=== PATIENT | female | born 1950 | race American Indian/Alaskan Native ===

== ENCOUNTER 2019-11-20 17:21 | Observation (INO) | payer OTHER ==
[~2019-11-20] VITALS: Ht 162.6 cm; Wt 113.0 kg
--- NOTE | 2019-11-20 22:45 | NUR ---
PATIENT ARRIVED VIA STRETCHER. PATIENT WAS ABLE TO PIVOT TRANSFER WITH CANE A SBA. PATIENT DID FEEL LIGHT HEADED WITH MOVEMENT. PATIENTS VITALS TAKEN AND RECORDED. PATIENTS ADMISSION COMPLETED. PATIENT DENIES ANY PAIN OR NAUSEA. PATIENT ORIENTED TO FLOOR, ROOM, AND CALL LIGHT. ANGELI RN IN ROOM TO ASSES PATIENT.
--- NOTE | 2019-11-20 23:00 | NUR ---
ASSESSMENT COMPLETE. PT ALERT AND ORIENTED. DENIES PAIN OR NAUSEA AT THIS TIME. IVF INFUSING. PT ORIENTED TO ROOM AND NURSE CALL LIGHT. ICE WATER GIVEN. NO QUESTIONS OR CONCERNS AT THIS TIME. CALL LIGHT IN REACH.
--- NOTE | 2019-11-21 01:50 | NUR ---
PT REQUESTING PRN FOR ABD PAIN. DR. MAGANA CALLED, NEW ORDERS RECEIVED. MEDICATED WITH PRN PER ORDER. SPO2 88-93% ON RA. PLACED 1L/NC, SPO2 95%. RR SHALLOW, PT STATES "IT HURTS TO TAKE DEEP BREATHS". ENCOURAGED PT TO COUGH DEEP BREATH TOLERATED. NO FURTHER NEEDS AT THIS TIME. CALL LIGHT IN REACH.
--- NOTE | 2019-11-21 06:16 | NUR ---
VS COMPLETE. SPO2 93% ON RA. UP TO BR WITH SBA TO VOID 400 ML CONCENTRATED URINE. GAIT STEADY. BACK TO BED, MARIA INES WELL. CLEAN GAUZE PLACED TO LEFT FLANK WOUND. PURULENT DRAINAGE NOTED. DENIES ABD AT THIS TIME. C/O HEADACHE BUT REFUSED PRN. WARM BLANKET GIVEN. LAB IN ROOM. NO FURTHER NEEDS, CALL LIGHT IN REACH.
--- NOTE | 2019-11-21 08:55 | NUR ---
MED REC COMPLETE
--- NOTE | 2019-11-21 09:13 | NUR ---
PATIENT IN BED WATCHING TV. FRESH WATER GIVEN. CALL LIGHT IN REACH. NO FURTHER NEEDS AT THIS TIME. PATIENT WANTS TO SHOWER LATER TODAY.
--- NOTE | 2019-11-21 09:39 | NUR ---
Ibuprofen 800mg po admin with jello for reports of 4/10 abdominal pain.
--- NOTE | 2019-11-21 12:24 | NUR ---
PT BACK FROM DI. IV FLUIDS INFUSING. PT REPORTS ABD PAIN IS IMPROVED. NO NEEDS AT THIS TIME.
--- NOTE | 2019-11-21 13:25 | NUR ---
PT SITTIN IN BED, A&OX4. PT REPORTS ABD PAIN IS UNDER BETTER CONTROL SINCE LAST DOSE OF IBUPROFEN. PT TOLERATING CLEAR LIQUID DIET. NO NEEDS AT THIS TIME. PERSONAL SUPPLIES AND CALL LIGHT WITHIN REACH.
--- NOTE | 2019-11-21 14:00 | NUR ---
PT ALERT, ORIENTED AND RESTINGIN BED WITH TV ON. PT SPEAKS SOFTLY BUT CLEARLY. PT MENTIONED SHE HAD JUST SPOKEN WITH HER DAUGHTER. STRUGGLING NOT BEING ABLE TO VISIT. PT SAID SHE ENCOURAGED HER TO CALL WHEN EVER SHE FELT A NEED. THESE ARE INDEED STRESSFUL TIMES. PT SEEMS TO BE MANAGING. PAIN BETTER UNDER CONTROL FEELS THAT SCAR TISSUE MAY BE THE PROBLEM. PT DID SAY SHE WISHED THAT A CAUSE COULD BE FOUND. SHE REQUESTED PRAYER AND ENCLUDED WISDOM FOR THE
--- NOTE | 2019-11-21 14:27 | NUR ---
PATIENT IN BED RESTING. CALL LIGHT IN REACH. NO FURTHER NEEDS AT THIS TIME.
--- NOTE | 2019-11-21 16:17 | NUR ---
In and spoke with Asiya. States she lives on [address] in a 1 story house with her husban. She has not been feeling well for 3 weeks and has not eaten much for 2 weeks due to abd. pain. He spouse is supportive and helps her with house hold chores. 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 She does not have children, uses a cane, denies use of any other DME. Plans on dc to home when she is cleared by the Dr. to go go home. She complains on cont. abd pain during our visit, denies need for RN to get pain meds as she was just medicated.
--- NOTE | 2019-11-21 17:54 | NUR ---
Pt in bed at this time, resp even and non labored. Pt denies needs at this time. Personal supplies and call light within reach.
--- NOTE | 2019-11-21 18:07 | NUR ---
Tylenol 650mg po admin for reports of 4/10 abd pain.
--- NOTE | 2019-11-21 19:30 | NUR ---
REPORT RECEIVED FROM DAY SHIFT RN. PT SITTING IN RECLINER, ALERT AND ORIENTED. O2 2L/NC IN PLACE. DENIES SOB. WHITE BOARD UPDATED. NO QUESTIONS OR CONCERNS AT THIS TIME. CALL LIGHT IN REACH.
--- NOTE | 2019-11-21 19:36 | NUR ---
REPORT RECEIVED FROM DAY SHIFT RN. PT LYING IN BED RESTING WITH EYES CLOSED, NAD. PT NOT DISTURBED AT THIS TIME. WHITE BOARD UPDATED. CALL LIGHT IN REACH.
--- NOTE | 2019-11-21 21:03 | NUR ---
ASSESSMENT COMPLETE. PRN GIVEN FOR 7/10 LEFT QUADRANT PAIN. PT REPORTS ABOUT TWO HOURS AFTER EATING ANYTHING SOLID SHE EXPERIENCES INCREASED PAIN ON THE LEFT SIDE. SPONGES REMOVED FROM LEFT SIDE WOUND, CLEAN SPONGES PLACED. PT STATES SHE HAS HAD SEVERAL LOOSE BOWEL MOVEMENTS FOLLOWING GI STUDY. NO C/O NAUSEA. IVF INFUSING. NO FURTHER NEEDS AT THIS TIME. CALL LIGHT IN REACH.
--- NOTE | 2019-11-21 23:50 | NUR ---
PT RESTING IN BED WITH EYES CLOSED, NAD.
--- NOTE | 2019-11-22 03:00 | NUR ---
PT RESTING IN BED WITH EYES CLOSED, RESPIRATIONS EVEN AND UNLABORED.
--- NOTE | 2019-11-22 05:03 | NUR ---
CALL LIGHT ANSWERED. PT UP TO BR WITH SBA TO VOID 3OO ML CONCENTRATED URINE. BACK TO BED, MARIA INES WELL. PRN GIVEN FOR ABD PAIN. NO C/O NAUSEA. IVF INFUSING. CLEAN GAUZE PLACED TO LEFT SIDE WOUND. VS AND I&O COMPLETE. NO FURTHER NEEDS. CALL LIGHT IN REACH.
--- NOTE | 2019-11-22 05:52 | NUR ---
PT SLEPT WELL. ALERT AND ORIENTED, USES CALL LIGHT APPROPRIATELY. SBA WITH CANE. IVF. PRN TYLENOL AND DILAUDID FOR PAIN. WOUND TO LEFT SIDE WITH PURULENT DRAINAGE COVERED WITH GAUZE. SEVERAL LOOSE BOWEL MOVEMENTS THIS SHIFT.
--- NOTE | 2019-11-22 05:58 | CONS ---
[facility] [address], [place] [address] Signed DATE OF CONSULTATION: 11/21/2019 CHIEF COMPLAINT: Left side abdominal pain. HISTORY OF PRESENT ILLNESS: Sven is now a 69-year-old obese female, who back in 2006 underwent an open left nephrectomy at [facility] in [place], [place]. She cannot tell me why she had a nephrectomy performed. She does not recall any cancer being there. Apparently, a hole was noted in the bowel and she ended up with a loop ileostomy while in [place]. Eventually, she made her way back to [place], [place]. 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 Costa was able to reverse her right lower quadrant loop ileostomy and repair the left flank hernia with Prolene mesh. Apparently that was done I think in October 2008. By April 2009, apparently she had an abdominal abscess requiring incision and drainage. At that point, the entire piece of Prolene mesh was not incorporated, so it was completely removed. There was some concern and at one point she had a left colectomy apparently for diverticular disease. It may have contributed to the colocutaneous fistula. She had a primary anastomosis, I think at the time of the implantation of the Prolene mesh. Later around 2007 or 2008, she had a colonoscopy and it sounds like everything was fine. This was also done by Dr. Costa. She has gone along this way for quite some time, it seems to be doing pretty well. She has a chronic wound in her left flank, probably a cm or so in diameter with some granulation tissue. She tells me there is never any stool or pus coming out of that area. However, the last couple of weeks she ate and within a couple of hours, she was having left-sided abdominal pain. She noticed it was coming every night after dinner and she ended up cutting back her p.o. intake to just some water and cranberry juice. However, it does not seem to be improving, so she finally decided to come to the emergency room for evaluation. In the emergency room, her vital signs were fine and her abdominal exam was not particularly concerning other than a chronic wound on her left back. However, the white count was up at 17,000 and her bilirubin was up at 4.2, although the liver function tests were fine. Alkaline phosphatase also of 417. Lactic acid was normal at 1.1. Lipase was normal. She gave a urine sample, but it had +4 squamous cells and was not particularly helpful. She has had blood cultures drawn as well. Renal function is normal. The CT scan showed of course some dilation of common bile duct, of course the gallbladder has gone from her previous open cholecystectomy. 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 There are surgical anastomotic mercy somewhere high in the left pelvis. There is some debris in her bladder and her left ovary is complex and septated at 53 x 38 mm. There seems to be some surgical clips in that area as well. She then had a chest x-ray done and it was unremarkable. She also had a pelvic ultrasound performed. Although, she did not tolerate that particular well. She does have a very small uterus. The right ovary is fairly small, she does have a complex left over at 54 x 35 x 49 mm. Obviously, there is some concern in that regard. It will certainly need to be addressed in the near future. Because of the left-sided abdominal pain, I have been asked to admit her as a Electronically Signed By: RICHY MAGANA MD 11/22/19 0558 PATIENT NAME: SVEN STAPLES CONSULTATION DATE OF : 48 REPORT #: [id number] PHYSICIAN: RICHY MAGANA MD PCP: YOVANA COSTA MD REPORT IS CONFIDENTIAL AND NOT TO BE RELEASED WITHOUT AUTHORIZATION [facility] [address], [place] [address] Signed general surgeon on-call. She has been hydrated overnight and kept n.p.o. Generally, she is doing fine. In the meantime, we have had time to talk to her and review quite a bit of her records. We are still trying to get her records from [place] for the left nephrectomy in 2006. PAST MEDICAL HISTORY: Diverticulosis and obesity. 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 That ultimately healed and was taken down here in [place] by Dr. Costa and at that time it sounds like she had a left colectomy with a primary anastomosis. At some point, she had I think during that same surgery she had Prolene mesh placed for her left flank hernia. It became affected within a few months, the Prolene mesh had to be removed and the wound evacuated. It was allowed to heal in secondarily with the help of the wound VAC. It is somewhere in 2007 or 2008, she actually had a colonoscopy with Dr. Costa and apparently that was fine as well. SOCIAL HISTORY: She has quit smoking. She does not drink. She is to her , Malachi, at [phone]. She attends [employer]. 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 FAMILY HISTORY: Not reviewed. REVIEW OF SYSTEMS: She had 10 systems reviewed and the above findings were uncovered along with extensive medical review of the chart. ALLERGIES: Aspirin causes hives. MEDICATIONS: None. PHYSICAL EXAMINATION: VITAL SIGNS: Blood pressure 122/55, heart rate is 94, respiratory rate 16, temperature is 98.3. She is 93% on room air. She is 5 feet 4 inches, 112 kg (240 pounds). GENERAL: Sven is a 69-year-old female, lying supine in her hospital bed. She is alert, awake, and interactive. She does not appear systemically ill or toxic. I think she is more frustrated than anything else. She has a pretty good mind for detail actually considered how sick she was in [place]. Electronically Signed By: RICHY MAGANA MD 11/22/19 0558 PATIENT NAME: SVEN STAPLES CONSULTATION DATE OF : 48 REPORT #: [id number] PHYSICIAN: RICHY MAGANA MD PCP: YOVANA COSTA MD REPORT IS CONFIDENTIAL AND NOT TO BE RELEASED WITHOUT AUTHORIZATION [facility] [address], [place] [address] Signed LUNGS: Clear to auscultation bilaterally. HEART: Regular rate and rhythm. ABDOMEN: Obese, but soft and nontender. She points to the left side is area of pain. On her left flank she has a granulated wound probably a cm or so in diameter. It is quite clean without any local signs or symptoms of infection. LABORATORY DATA: Her white blood count was 17.8, hemoglobin 13.9, neutrophils 88. Her sodium was 127 is up to 133, BUN is 18, creatinine 0.86, total bilirubin 4.2 , it was 3.4, AST 48, ALT 25, alkaline phosphatase 417, albumin is 2.8, lactic acid 1.1, lipase 20. Urinalysis showed 4+ squamous cells. Blood cultures are pending. RADIOGRAPHIC STUDIES: Chest x-ray is unremarkable. CT scan showed the slightly dilated common bile duct with an absent gallbladder and absent left kidney. We see the surgical mercy at high in the left pelvis. There is some debris in the bladder and a complex left ovary at 53 x 38 mm. The followup pelvic ultrasound confirms the complex left over at 54 x 35 x 49 mm. ASSESSMENT AND PLAN: Sven is a 69-year-old female, who presents with a complex history as above. She has certainly had troubles with this left wound in abdominal wall. She certainly could be susceptible to a partial small bowel obstruction. She told me today she has passed some gas this morning and overall is feeling better. We talked about simply trying some clear liquids and adding in some polyethylene glycol. We also talked about simple surgeon's small-bowel follow-through. She wanted to try the small bowel follow-through x-ray first. In the meantime, we have also consulted our hospitalist as she has some areas on her forehead and chin, it looks like ringworm. We are looking forward the hospitalist input in that regard. She has expressed understanding and agrees above plan. Richy Magana MD ALB/MODL /[id number] cc: Richy Magana MD Electronically Signed By: RICHY MAGANA MD 11/22/19 0558 PATIENT NAME: SVEN STAPLES [facility] CONSULTATION DATE OF : 48 REPORT #: [id number] PHYSICIAN: RICHY MAGANA MD PCP: YOVANA COSTA MD REPORT IS CONFIDENTIAL AND NOT TO BE RELEASED WITHOUT AUTHORIZATION [facility] [address] [place], [place] [address] Signed [facility] Copies: RICHY MAGANA MD ~ Electronically Signed By: RICHY MAGANA MD 11/22/19 0558 PATIENT NAME: SVEN STAPLES CHELITAMARCELO CONSULTATION DATE OF : 48 REPORT #: [id number] PHYSICIAN: RICHY MAGANA MD PCP: YOVANA COSTA MD REPORT IS CONFIDENTIAL AND NOT TO BE RELEASED WITHOUT AUTHORIZATION
--- NOTE | 2019-11-22 09:14 | NUR ---
MORNING ASSESSMENT COMPLETE. PT. IS RESTING IN BED WTIH NO PAIN AT THIS TIME. ANTIBIOTIC IS RUNNING. HAS BEEN PUT ON NPO DIET. OFFERED MOUTH SWAB. STATES NO FURTHER NEEDS AT THIS TIME. CALL LIGHT WITHIN REACH.
--- NOTE | 2019-11-22 10:05 | NUR ---
STOOD AT BEDSIDE WHILE DR. MACDONALD ASSESSED PT. LT ARM IV APPEARS INFILTRATED. RN STARTED NEW IV ON RT WRIST. DC'D IV ON LT ARM AND WRAPPED IN WARM BLANKET. PT STATED NO PAIN IN ARM OR ELSEWHERE. NO FURTHER NEEDS AT THIS TIME. CALL LIGHT WITHIN REACH.
--- NOTE | 2019-11-22 11:30 | NUR ---
Spoke with pt. She states she had a recent IV change. Dr. Rivera assessed her and she will be going for an MRI. States tired and not feeling well. Denies need for pain meds. Will see tomorrow.
--- NOTE | 2019-11-22 11:53 | NUR ---
PT SALINE LOCKED. WAITING TO GO FOR MRI. NO NEEDS AT THIS TIME. CALL LIGHT WITHIN REACH.
--- NOTE | 2019-11-22 12:28 | CONS ---
[facility] [address], [place] [address] Signed DATE OF CONSULTATION: 11/22/[address] Kirk and Dr. Haji. CHIEF COMPLAINT: Complex left adnexal mass. HISTORY: The patient is a 69-year-old, G1, P0, A1, postmenopausal since age 51, seen in the emergency room on 11/20/2019, complaining of 2-3 week history of abdominal pain. She states this started in upper middle abdomen, was getting lower into the abdomen, mostly in the midline, and worse 1-2 hours after eating. She has had decreased appetite, also noted chills and sweats along with the pain. Denies any nausea, vomiting, diarrhea, constipation, fever, also no abdominal bloating. No vaginal bleeding. The patient has a complicated history with multiple abdominal surgeries and during hospitalization evaluation, a CT showed a complex left adnexal mass, so a pelvic ultrasound was done which also showed a complex left cystic mass with multiple septations with vascularity within the septa. No ascites seen. PAST MEDICAL HISTORY: Medical diverticulosis and obesity. PAST SURGICAL HISTORY: She has had a left nephrectomy, loop ileostomy with later reversal, had a hernia repair with mesh, then had to have I and D and mesh removal for infection. Later, she also had cystectomy, left colectomy, and most recently a colonoscopy. MEDICATIONS: Prior to admission was on no medications. ALLERGIES: To aspirin. SOCIAL HISTORY: She is a nonsmoker, just quit last year, but was not a daily smoker. She denies alcohol or drug use. PHYSICAL EXAMINATION: GENERAL: The patient in no acute distress. She is alert and oriented, and pleasant woman. ABDOMEN: Obese. There are multiple scars, there is no guarding or rebound, some diffuse abdominal tenderness. PELVIC: External genitalia, no lesions. Vagina, no blood. Cervix and uterus, Electronically Signed By: MALIKA MACDONALD MD 11/22/19 1228 PATIENT NAME: SVEN STAPLES CONSULTATION DATE OF : 48 REPORT #: [id number] PHYSICIAN: MALIKA MACDONALD MD PCP: YOVANA COSTA MD REPORT IS CONFIDENTIAL AND NOT TO BE RELEASED WITHOUT AUTHORIZATION [facility] [address], [place] [address] Signed difficult to feel because of being menopausal and obese. No adnexal masses palpable, but is generally tender to palpation throughout pelvis. IMPRESSION: Complex left adnexal mass. PLAN: I had discussed the possibility of ovarian cancer with the patient and recommendation for further testing including CA-125. I discussed the possibility of surgery to remove this ovary. At this point, the patient is not wanting any further surgery. I told her we would discuss that further after getting more information and we would discuss options. The patient's questions were answered that she had at this time and seemed happy with the plan. Thank you for this consult. We will be glad to follow her with the decision on further evaluation and treatment. MD MECRED Little/MIKEL /[id number] Copies: ~ Electronically Signed By: MALIKA MACDONALD MD 11/22/19 1228 PATIENT NAME: SVEN STAPLES CONSULTATION DATE OF : 48 REPORT #: [id number] PHYSICIAN: MALIKA MACDONALD MD PCP: YOVANA COSTA MD REPORT IS CONFIDENTIAL AND NOT TO BE RELEASED WITHOUT AUTHORIZATION
--- NOTE | 2019-11-22 12:57 | NUR ---
PATIENT BACK FROM MRI. 650MG OF TYLENOL GIVEN FOR 01/30 HEADACHE
--- NOTE | 2019-11-22 14:11 | NUR ---
PATIENT SLEEPING WITH REGULAR RESPIRATIONS. 4 HOUR PIPERACILLIN INFUSING FOR 4 HOURS.
--- NOTE | 2019-11-22 17:20 | NUR ---
PATIENT UP TO BATHROOM AND BACK TO BED WITH CANE AND ONE PERSON ASSIST. WARM BLANKET GIVEN. CALL BUTTON IN REACH. NO OTHER NEEDS AT THIS TIME.
--- NOTE | 2019-11-22 17:40 | NUR ---
PATIENT SITTING UP IN BED, CALL TO DR. MAGANA TO ADVANCE DIET TO FULL LIQUID DIET. DINNER TRAY ORDERED, WATER AT BEDSIDE. PATIENT DENIES OTHER NEEDS AT THIS TIME.
--- NOTE | 2019-11-22 19:27 | NUR ---
Received report from morning shift. pt in bed, awake, alert. Will be back for assessment.
--- NOTE | 2019-11-22 21:37 | NUR ---
PT WAKES AUP EASLY, ALERT, ORIENTED. REPORTED PAIN 12/21, SEE MAR FOR MEDCIATION ADMINISTRATION. DONE WITH ASSESSMNET. ABDOMINAL IS TENDER ON THE LEFT SIDE. THERE IS SOME "GREENISH-YELLOWISH" DISCHARGE FORM THE WOUND ON THE RIGHT SIDE. MD COSTA AT THE ROOM FOR THE CONSULT. FLUSHED IV WITH 10 ML OF NS. WILL BE BACK TO REASSESS FOR PAIN.
--- NOTE | 2019-11-22 21:51 | NUR ---
CLEANED THE WOUND WITH NS, APPLIED NEW GAUZE. PT TOLERATED WELL
--- NOTE | 2019-11-22 23:44 | NUR ---
PT ASLEEP, BREATHING NORMALLY, RR 16, NO DISTRESS NOTED.
--- NOTE | 2019-11-23 01:38 | NUR ---
pt RESTING IN BED WITH EYES CLOSED. APPEARS TO BE SLEEPING. BREATHING UNLABORED. IV ANTIBIOTIC INFUSION COMPLETE, IVF INFUSING WNL ORDERED.
--- NOTE | 2019-11-23 02:01 | NUR ---
pt called to use the bathroom. voided without difficulties. denied pain at th moment. Stated " it is good to be without pain". back to bed. call light in reach, bed in low position for safety. No needs at the moment.
--- NOTE | 2019-11-23 05:02 | NUR ---
PT WAKES UP EASILY TO VOICE. AMBULATED TO THE BATHROOM. STARTED NEW BAG OF NS. PT VOIDED, BACK TO BED. DOEN WITH ASSESSMENT.INFORMED PT ABOUT ADVANCING HER DIET TO FULL LIQUIDS. PT DENIED PAIN. BED IN LOW POSITION, CALL LIGHT IN REACH. NO NEEDS AT THE MOMENT.
--- NOTE | 2019-11-23 06:04 | NUR ---
PT ADVANCED TO GENERAL DIET. HAD 3 BMS TONIGHT. VOIDED. PAIN MANAGEMENT WITH PRN MEDICATIONS, SEE OCT. DRESSING CLEAN, DRY, INTACT. PT AMBULATED AROUND THE UNIT. VSS. PORT IS PATENT, GOOD BLOOD RETURN.
--- NOTE | 2019-11-23 06:28 | NUR ---
pt pain was manhed with prn medications, see mar. pt slept through the most of the night. diet advanced from npo to full liquid. pt ambulated to the bathroom, voided without probelms. some yellow drainage noted comin out from the wound in the left flank. no cough, lungs clear but feels sob especially with exrtion.
--- NOTE | 2019-11-23 07:10 | NUR ---
REPORT RECEIVED FROM TALIA ISBELL. PT RESTING IN BED. PT DENIES PAIN AT THIS TIME AND STATES SHE WOULD LIKE TO KNOW WHEN DR. MAGANA IS COMING BECAUSE "I'M LEAVING TODAY WETHER HE THINKS I SHOULD OR NOT." THERAPUTIC COMMUNICATION DONE WITH PT. PT STATES "IT'S ALL JUST TOO MUCH." PT ALLOWED TO REST AT THIS TIME. NO ADDITIONAL REQUESTS OR COMPLAINTS. CALL LIGHT WITHIN REACH.
--- NOTE | 2019-11-23 07:45 | NUR ---
DR. MAGANA UPDATED ON PTS DESIRE TO LEAVE. NO NEW ORDERS AT THIS TIME.
--- NOTE | 2019-11-23 08:39 | NUR ---
MORNING ASSESSMENT AND MEDICAITON DUE. PT UP TO CHAIR FOR BREAKFAST. DISUCSSION HELD WITH PT REGARDING OPTIONS. PT STATES SHE MAY BE WILLING TO STAY AND IS AWAITING VISIT FROM DR. MAGANA. ASSESSMENT DONE. BOWEL TONES HEARD. PT DENIES PAIN AT THIS TIME. PT STATES PAIN IS USUALLY WORSE "AFTER I EAT." PT EATING BREAKFAST SLOWLY. VITALS TAKEN. NO ADDIITONAL REQUESTS OR COMPLAINTS AT THIS TIME. CALL LIGHT WITHIN REACH.
--- NOTE | 2019-11-23 10:00 | NUR ---
Pt sitting up in chair. Has stone in common bile duct. Dr plans on transfere to [place]. Pt denies request.
--- NOTE | 2019-11-23 10:51 | NUR ---
THIS RN TO ROOM TO CHECK ON PT. PT VISITING WITH SEASONING SPRAYER. IV FLUIDS DECREASED TO 100ML/HR PER MD ORDERS. PT DENIES ADDITIONAL REQUESTS OR COMPLAINTS AND CONTINUES VISITING WITH SEASONING SPRAYER. . CALL LIGHT WITHIN REACH.
--- NOTE | 2019-11-23 11:10 | NUR ---
PT REQUESTS SHOWER. IV SALINE LOCKED FOR SHOWER. CARPENTER CRADLE AND DOLLY TO BEDSIDE. PT UP FOR SHOWER WITH 1PA.
--- NOTE | 2019-11-23 12:26 | NUR ---
NOON ASSESSMENT DUE. PT RESTING IN BED AFTER SHOWER. MG INFUSION DUE (STARTED ORDERED, SEE OCT). ASSESSMENT DONE. BOWEL TONES HEARD. SKIN WOUNDS UNCHANGED. TRANSPORT ARRIVING. PT UPDATED ON PLAN OF CARE. VITALS TAKEN. PT CALLED TO UPDATE FAMILY. NO ADDITIONAL REQUESTS OR COMPLAINTS AT THIS TIME. CALL LIGHT WITHIN REACH.
--- NOTE | 2019-11-23 12:33 | NUR ---
DR. MCMAHAN CONSTULED REGARDING SENDING 1400 ABX WITH PT TO BE GIVEN DURING TRANSPORT. DR. MCMAHAN STATES NOT TO SEND ABX WITH PT.
--- NOTE | 2019-11-23 12:45 | NUR ---
[facility], [facility], ARRIVED FOR TRANSFER. PTS BELONGS PACKED. MAGNESIUM INFUSION YET TO COMPLETE, SENT WITH PT ON STRAIGHT TUBING. DRIP RATE CALCULATED. REPORT GIVEN TO EMS TRANPORT PERSONMARCIN WHO STATE THEIR QUESTIONS HAVE BEEN ANSWERED. PT TRANSFERES SELF TO STRETCHER WITH 1PA. ALL BELONGS AND CELL PHONE SENT WITH PT. PTS FAMILY CALLED AND UPDATED.
--- NOTE | 2019-11-23 12:50 | NUR ---
HARJIT WEBER, CALLED AND UPDATED ON PT TRANSFER. HARJIT STATES HIS QUESTIONS HAVE BEEN ANSWERED.
--- NOTE | 2019-11-23 12:55 | NUR ---
CALL TO [facility] TO GIVE REPORT. CHARGE NURSE WILL RETURN CALL.
--- NOTE | 2019-11-23 13:15 | NUR ---
RETURN CALLED FROM [facility]. REPORT GIVEN TO ESTEBAN, STAFF NURSE MIDWIFE. ESTEBAN VERBALIZES UNDERSTANDING AND STATE HIS QUESITONS HAVE BEEN ANSWERED.
--- NOTE | 2019-11-23 14:15 | NUR ---
PT SITTING IN CHAIR, AWAITING TRANSFER. PT MENTIONED SHE FEELS MUCH BETTER KNOWING THERE IS A PLAN AND SHE FEELS CONFIDENT. SHE STATED HER WAS RATHER UPSET, MOSTLY FROM NOT BEING ABLE TO VISIT IN PERSON. STAFF IN TO PRE- PARE PT FOR DC. SHE THANKED ME FOR VISITING, GAVE A BLESSING
--- NOTE | 2019-11-24 08:32 | DS ---
[facility] [address], [place] [address] Signed ADMISSION DATE: 11/20/2019 DISCHARGE DATE: 11/23/2019 FINAL DIAGNOSES: 1. Choledocholithiasis with probable cholangitis. 2. Bacteremia. 3. Urinary tract infection. 4. Bilateral complex ovarian cyst, left greater than right. 5. Chronic left flank wound. PROCEDURES: 1. Chest x-ray. 2. CT scan of abdomen and pelvis. 3. Small-bowel follow-through. 4. Pelvic ultrasound. 5. MRCP/MRI of abdomen. HISTORY OF PRESENT ILLNESS: Sven is a 69-year-old obese female, who takes no medications. Many years ago, she underwent an open left nephrectomy. Unfortunately, she developed a colocutaneous fistula. This required a protecting loop ileostomy to allow to heal. The ileostomy was taken down later with the left colectomy concerning with diverticular disease contributing to the fistula. She had a hernia, that had been repaired with mesh. Unfortunately that became infected a few months later and the mesh had to be removed. That wound was allowed to heal secondarily with the help of the wound VAC. She now has a small 1 to 1-1/2 cm granulated opening on her skin, which is actually quite clean and does not appear to be infected. She also had an open gallbladder during some of the surgeries. She came to our hospital with 7 to 10 days of abdominal pain, 1 to 2 hours after eating. It seemed to be crampy in waves and mostly on the left side of the abdomen, although she also said it was somewhat on the right. She finally came to the hospital for evaluation. Her abdominal exam was not particularly concerning whatsoever, although the white count was [place] [address] to [address]. We also noticed that her total bilirubin was up at 3.4 and alkaline phosphatase was 417. AST and ALT were normal at 48 and 25. Lactic acid was also normal at 1.1. Lipase normal at 20. Blood cultures were drawn and they came back today with gram-positive bacilli. She had a urinalysis sent, but had multiple squamous cells. A repeat urine sample was obtained by straight cath and it has come back with Klebsiella. Initially, the antibiotics were held while she was hydrated. However, the white count persisted and so she was started on Zosyn yesterday. She also appears to have ringworm on her forehead and around her chin, so clotrimazole was started as well. We did consult Internal Medicine Service in that regard. We also had our hemstitching machine operator see her and regarding the ovarian cyst. Of Electronically Signed By: RICHY MAGANA MD 11/24/19 0832 PATIENT NAME: SVEN STAPLES DISCHARGE SUMMARY DATE OF : 48 REPORT #: [id number] PHYSICIAN: RICHY MAGANA MD PCP: YOVANA COSTA MD REPORT IS CONFIDENTIAL AND NOT TO BE RELEASED WITHOUT AUTHORIZATION [facility] [address] [place] [address] Signed course, the CA-125 level is pending. She has already told us and the hemstitching machine operator she would not accept surgery in the future even if was cancer. Of course that can be handled as an outpatient with followup ultrasound. In the meantime[place] [address] with just one day of Zosyn. Her bilirubin is down to 1.6 and AST is down to 313. The AST and ALT remain normal, although they have come down. The AST from 48 down to 22 and the ALT from 28 down to 13. Albumin is a little low at 2.1. Lipases have stayed normal at 12. Magnesium was off a little to 1.6, so she does have magnesium pending. In the meantime, we did have her small-bowel follow-through completed and it was unremarkable for bowel obstruction. We did an MRCP confirming the dilated common bile duct around 18 to 29 mm. There was a nonenhancing nodule 14 x 11 mm in her distal common bile duct. Most likely, a sludge or stone. 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 She also has the complex bilateral ovarian cysts with the left being greater than the right. In the meantime, Sven's leave. I had called Dr. Costa, the other General Surgeon in [facility]. He had reviewed her records from 10 years ago and came by to visit with her here in the hospital. He told her he is happy to help if she would like that. Otherwise, he will remain available. In the meantime, I have also spoken with Dr. Rivera, her hemstitching machine operator, our hospitalist. The patient and her dhruv in great detail. I think her main concern is the common bile duct stone with probable cholangitis. I did speak with our [facility]. Due to the size of the stone, it was felt that she probably would need endoscopic lithotripsy in order to help remove that stone. Consequently, vienna had us check in with her roll tender up in [place] at [facility]. Dr. Torres is in agreement with that. He is willing to accept her and transfer and we talked with his hospitalist, Dr. Leblanc. That has been completed and we are making arrangements currently to have Sven transferred up to [place]. Of course, I am available locally here in [place] when she comes home, if she needs followup here. I have reviewed that with Sven and her family in detail. They have all expressed understanding and agreed above plan. Richy Magana MD ALB/MODL /[id number] cc: Chart Filed Incomplete Electronically Signed By: RICHY MAGANA MD 11/24/19 0832 PATIENT NAME: SVEN STAPLES DISCHARGE SUMMARY DATE OF : [birth year] REPORT #: [id number] PHYSICIAN: RICHY MAGANA MD PCP: YOVANA COSTA MD REPORT IS CONFIDENTIAL AND NOT TO BE RELEASED WITHOUT AUTHORIZATION [facility] [address] [place] [address] Signed MD Savi Little FNP Andrew L Bower, MD John McBee, MD Copies: CHART FILED INCOMPLETE MALIKA RIVERA MD,YOVANA LOZANO MD, MD ~ Electronically Signed By: RICHY MAGANA MD 11/24/1933 PATIENT NAME: VSEN STAPLES DISCHARGE SUMMARY DATE OF : [birth year] REPORT #: [id number] PHYSICIAN: RICHY MAGANA MD PCP: YOVANA COSTA MD REPORT IS CONFIDENTIAL AND NOT TO BE RELEASED WITHOUT AUTHORIZATION
== END 2019-11-23 12:45 | disposition short-term general hospital (02) ==
LOC: ED 17:21 → MS 17:23
PROVIDERS: ADMIT Colon & Rectal Surgery
DX: K80.50 Calculus of bile duct without cholangitis or cholecystitis without obstruction (principal); N39.0 Urinary tract infection, site not specified; B96.1 Klebsiella pneumoniae [K. pneumoniae] as the cause of diseases classified elsewhere; N83.292 Other ovarian cyst, left side; N83.291 Other ovarian cyst, right side; S31.109A Unspecified open wound of abdominal wall, unspecified quadrant without penetration into peritoneal cavity, initial encounter; E66.01 Morbid (severe) obesity due to excess calories; E80.6 Other disorders of bilirubin metabolism; N94.89 Other specified conditions associated with female genital organs and menstrual cycle; E87.1 Hypo-osmolality and hyponatremia; B35.8 Other dermatophytoses; Z88.6 Allergy status to analgesic agent; Z87.891 Personal history of nicotine dependence; X58.XXXA Exposure to other specified factors, initial encounter
CPT/HCPCS: 36415; 71045; 74177; 74183; 74250; 76830; 76856; 80048; 80053; 80076; 81001; 82977; 83605; 83615; 83690; 83735; 84100; 85025; 86304; 87040; 87077; 87088; 87184; 87186; 96361; 96365; 96375; 96376; 99285-25; A9579; G0378; J1170; J2405; J2543; J3475; J7030

== ENCOUNTER → 2020-02-25 | Emergency (ER) | payer OTHER ==
[~2020-02-25] VITALS: Ht 162.6 cm; Wt 112.9 kg
--- OUTSIDE RECORDS SUMMARY | ~2020-02-25 | XMS | Encounter Summary ---
Demographics + + + | Address | [address] | | | [place] [address] | + + + | Home Phone | | + + + | Preferred Language | Unknown | + + + | Marital Status | | + + + | Hoahaoism Affiliation | Unknown | + + + | Race | Unknown | + + + | Ethnic Group | Unknown | + + + Author + + + | Author | [facility] | | | and [place] | + + + | Organization | [facility] | | | and [place] | + + + | Address | Unknown | + + + | Phone | Unavailable | + + + Support + + + + + | Name | Relationship | Address | Phone | + + + + + | Malachi Shepherd | ECON | [address] | | | | | [place] | | | | | [address] | | + + + + + Care Team Providers + +------+ + | Care Online Marketing Director Name | Role | Phone | + +------+ + | Junior Yates | PCP | | + +------+ + Reason for Visit Auth/Cert +--------+--------+ + + + + | Status | Reason | Specialty | Diagnoses / | Referred By | Referred To | | | | | Procedures | Contact | Contact | +--------+--------+ + + + + | | | | Diagnoses | | | | | | | | | | | | | | Choledocholi | | | | | | | thiasis | | | | | | | Cholangitis | | | | | | | | | | +--------+--------+ + + + + Encounter Details +--------+ + + + + | Date | Type | Department | Care Team | Description | +--------+ + + + + | 11/23/ | Anesthesia | [facility] DICKERSON | [facility], | | | 2020 | Event | [facility] | MD [address] | | | | INTRA [address] | [address] | | | | | [place] | [address] | | | | | [address] | | | | | | [phone] | | | +--------+ + + + + Anesthesia Record + + + + + | Procedure Name | Responsible | Anesthesia Start | Anesthesia Stop Time | | | Anesthesiologist | Time | | + + + + + | ENDOSCOPIC | Mack Hughes, | 11/24/19 1343 | 11/24/19 1427 | | RETROGRADE | MD | | | | CHOLANGIOPANREATOG | | | | | (N/A ) | | | | + + + + + +----+---+ + + | Da | T | Event | Comment | | te | i | | | | | m | | | | | e | | | +----+---+ + + | 04 | 1 | | | | /0 | 3 | | | | 3/ | 0 | | | | 20 | 3 | | | | 20 | | | | +----+---+ + + | | 1 | An Checkout | Pre-use anesthesia machine/equipment checkout. | | | 3 | | | | | 4 | | | | | 3 | | | +----+---+ + + | | 1 | An Start | Reassessment prior to anesthesia induction/procedure. | | | 3 | | | | | 4 | | | | | 3 | | | +----+---+ + + | | 1 | An | | | | 3 | Induction | | | | 5 | | | | | 2 | | | +----+---+ + + | | 1 | Pre-Procedu | | | | 3 | ral Timeout | | | | 5 | Completed | | | | 8 | | | +----+---+ + + | | 1 | First | | | | 4 | Inc/Proc St | | | | 0 | | | | | 0 | | | +----+---+ + + | | 1 | An Stop | Patient handed off to recovery nurse. | | | 2 | | | | | 7 | | | +----+---+ + + +------+ | Meds | +------+ + + + | Name | Total | + + + | lidocaine 2% | 40 mg | + + + | propofol | 80 mg | + + + | propofol | 394.8 mg | + + + | glucagon injection | 0.25 mg | + + + | LR (Infusion) | 200 mL | + + + + + | Name | + + | N2O Flow Rate (L/Min) | + + | O2 Flow Rate (L/Min) | + + | Insp O2 | + + | Exp N2O | + + | Air Flow Rate (L/Min) | + + | Secondary O2 Flow Rate | + + + + | No blood administrations on file. | + + +-------+ + + + | Type | Details | Placement | Removal | +-------+ + + + | Wound | 11/23/19; 1700; Left; lower; | 11/23/19 1700 by | 11/25/19 1238 by | | | flank; other (see comments); | Milena Franklin RN | Lana Boone, | | | other (see comments); from old | | RN | | | left nephrectomy ; Healing; | | | | | 11/25/19; 1238 | | | +-------+ + + + documented in this encounter Social History + +-------+ +--------+ + | Tobacco Use | Types | Packs/Day | Years | Date | | | | | Used | | + +-------+ +--------+ + | Former Smoker | | 0.5 | 40 | Quit: 05/24/2019 | + +-------+ +--------+ + + +---+---+---+ | Smokeless Tobacco: | | | | | Never Used | | | | + +---+---+---+ + + +---------+ + | Alcohol Use | Drinks/Week | oz/Week | Comments | + + +---------+ + | Not Currently | | | quit drinking Oct | | | | | 2019 prior was | | | | | casually drinking | + + +---------+ + + + + | Sex Assigned at | Date Recorded | | | | + + + | Not on file | | + + + documented as of this encounter OR Notes Anesthesia Postprocedure Evaluation - Mack Hughes MD - 11/24/2019 2:38 PM PDTForm atting of this note might be different from the original. ANESTHESIA POSTANESTHESIA EVALUATION Asiya Shepherd 69 y.o. female 1950 [id number] Procedure(s) ENDOSCOPIC RETROGRADE CHOLANGIOPANREATOG (N/A ) Cooperates? Yes Mental Status Performs simple tasks. Respiratory Satisfactory - Airway patent (self maintained). Cardiovascular Satisfactory - Blood pressure and heart rate acceptable Temperature Satisfactory Pain Satisfactory N/V Control Satisfactory Hydration Satisfactory - No signs of dehydration Adverse Events ADVERSE EVENTS: No adverse events Vitals Value Taken Time Temp 36.4 C (97.6 F) 11/24/2019 2:27 PM Pulse 77 11/24/2019 2:32 PM Resp 16 11/24/2019 2:32 PM BP 134/65 11/24/2019 2:32 PM Arterial Line BP Arterial Line BP 2 SpO2 97 % 11/24/2019 2:32 PM Electronically signed by Mack Hughes MD 11/24/2019 2:38 PM [facility] signed by Mack Hughes MD at 0 2:39 PM PDTAnesthesia Preprocedure Evaluation - Mack Hughes MD - 11/24/2019 11:5 6 AM PDT ANESTHESIA PREANESTHESIA EVALUATION Asiya Shepherd 69 y.o. female 1950 [id number] Procedure(s): ENDOSCOPIC RETROGRADE CHOLANGIOPANREATOG (N/A ) Medical,anesthesia, drug, allergy histories reviewed, NPO status verified. Review of Systems / Med History Anesthesia History (+) previous surgery or anesthesia. Cardiovascular Negative except where noted below. Exercise tolerance >4 METS(-) coronary artery disease. . Pulmonary (-) shortness of breath, recent URI.(+) sleep apnea.(+) Sleep apnea history/interventions: at risk.(+) tobacco use.(+) ex-smoker. Gastrointestinal/Hepatic CBD dilation with elevated leukocytosis of 22k likely 2/2 to chol edocholithiasis with prior cholecystectomy. She is now status post MRCP which showed 29 mm H epatic bile duct amd 18mm CBD w/ evidence of sludge ball vs stone in the CBD. Renal Solitary kidney. (-) chronic renal insufficiency. Endocrine (+) obesity: morbid BMI 40+ Hematology/Other TINIEA. Physical Exam Airway MP II, TM >3 FB, Mouth opening >2 FB. Neck: full ROM, extends >30 degrees. Jaw protrus ion normal. Dental grossly normal except where noted below. CV cardiovascular normal Rhythm regular. Rate normal. Pulm Clear to auscultation bilaterally. Neuro grossly normal. Anesthesia Plan ASA: 3 Type: TIVA. Induction: Intravenous. Potential problems: None anticipated. Monitors: Standard ASA monitors. Postop Pain Management: Consent statement: Anesthetic plan, alternatives, risks and benefits discussed with patient. drug reaction, na usea, pain, perioperative CV events, respiratory events, sore throat, stroke, delirium Consenting person understands and agrees to proceed. PARQ. documented in thi s encounter Miscellaneous Notes Anesthesia Post-op Handoff - Miah Perry CRNA - 11/24/2019 2:27 PM PDTFormatting of th is note might be different from the original. ANESTHESIA HANDOFF NOTE Asiya Vinay Shepherd 69 y.o. female 1950 [id number] ENDOSCOPIC RETROGRADE CHOLANGIOPANREATOG (N/A ) HANDOFF NOTE Handoff Protocol Used: post-procedure handoff checklist completed The following were completed during the transfer of care: 1. Identification of patient 2. Identification of responsible practitioner (primary service) 3. Discussion of pertinent medical history 4. Discussion of the surgical/procedure course (procedure, reason for surgery, procedure pe rformed) 5. Intraoperative anesthetic management and issues/concerns 6. Expectations/plans for the early post-procedure period 7. Opportunity for questions and acknowledgement of understanding of report from receiving team Patient Location: Phase II Condition: awake Airway/O2: nasal cannula with O2 Two or more STEPHANIE mitigation strategies used: perioperative obstructive sleep apnea intervent ions applied The significant anesthesia concerns and VS in Epic were reviewed with the receiving team. Miah Perry CRNA 11/24/2019 2:27 PM [facility] documented in this encounter Plan of Treatment Not on filedocumented as of this encounter Visit Diagnoses Not on filedocumented in this encounter Administered Medications + +--------+ +---------+------+------+ | Medication Order | MAR | Action | Dose | Rate | Site | | | Action | Date | | | | + +--------+ +---------+------+------+ | glucagon injection | Given | 11/24/19 | 0.25 mg | | | | Intravenous, PRN, Starting Fri | | 20 2:03 | | | | | 11/24/19 at 1403, Anesthesia | | PM PDT | | | | | Intra-op | | | | | | + +--------+ +---------+------+------+ +---+---+ | | | +---+---+ + +---------+ +---+---+---+ | lactated ringers (LR) infusion | New Bag | 11/24/19 | | | | | Intravenous, CONTINUOUS PRN, | | 20 1:43 | | | | | Starting 11/24/19 at 1343, | | PM PDT | | | | | Anesthesia Intra-op | | | | | | + +---------+ +---+---+---+ +---+---+ | | | +---+---+ + +-------+ +-------+---+---+ | lidocaine (PF) 2% injection | Given | 11/24/19 | 40 mg | | | | Intravenous, PRN, Starting Fri | | 20 1:52 | | | | | 11/24/19 at 1352, Anesthesia | | PM PDT | | | | | Intra-op | | | | | | + +-------+ +-------+---+---+ +---+---+ | | | +---+---+ + +-------+ +-------+---+---+ | propofol (DIPRIVAN) injection | Given | 11/24/19 | 50 mg | | | | Intravenous, PRN, Starting Fri | | 20 1:55 | | | | | 11/24/19 at 1352, Anesthesia | | PM PDT | | | | | Intra-op | | | | | | + +-------+ +-------+---+---+ +-------+ +-------+---+---+ | Given | 11/24/19 | 30 mg | | | | | 20 1:52 | | | | | | PM PDT | | | | +-------+ +-------+---+---+ +---+---+ | | | +---+---+ + + + + + +---+ | propofol (DIPRIVAN) injection | Rate/Dos | 11/24/19 | 100 | 63 mL/hr | | | Intravenous, CONTINUOUS PRN, | e Change | 20 2:14 | mcg/kg/m | | | | Starting 11/24/19 at 1352, | | PM PDT | in | | | | Anesthesia Intra-op | | | | | | + + + + + +---+ + + + +--------+---+ | Rate/Dose Change | 11/24/19 | 140 | 88.2 | | | | 20 2:09 | mcg/kg/m | mL/hr | | | | PM PDT | in | | | + + + +--------+---+ | Rate/Dose Change | 11/24/19 | 160 | 100.8 | | | | 20 2:04 | mcg/kg/m | mL/hr | | | | PM PDT | in | | | + + + +--------+---+ +---+---+ | | | +---+---+ documented in this encounter"
--- OUTSIDE RECORDS SUMMARY | ~2020-02-25 | XMS | Clinical Summary ---
Demographics + + + | Address | [address] | | | [place] [address] | + + + | Home Phone | | + + + | Preferred Language | Unknown | + + + | Marital Status | | + + + | Restorationist Affiliation | Unknown | + + + | Race | Unknown | + + + | Ethnic Group | Unknown | + + + Author + + + | Author | [facility] | | | and [place] | + + + | Organization | [facility] | | | and [place] | + + + | Address | Unknown | + + + | Phone | Unavailable | + + + Support + + + + + | Name | Relationship | Address | Phone | + + + + + | Malachi Shepherd | ECON | [address] | | | | | [place] | | | | | [address] | | + + + + + Care Team Providers + +------+ + | Care Public Information Coordinator Name | Role | Phone | + +------+ + | Junior Yates | PCP | | + +------+ + Allergies + + + + + + | Active Allergy | Reactions | Severity | Noted | Comments | | | | | Date | | + + + + + + | Aspirin | Unknown | | 11/24/19 | | | | | | 20 | | + + + + + + Medications + + + +---------+------+------+-------+ | Medication | Sig | Dispensed | Refills | Star | End | Statu | | | | | | t | Date | s | | | | | | Date | | | + + + +---------+------+------+-------+ | acetaminophen | Take 650 mg by mouth | | 0 | | | Activ | | (TYLENOL) 325 mg | every 4 hours as | | | | | e | | tablet | needed for Pain. | | | | | | + + + +---------+------+------+-------+ Active Problems + + + | Problem | Noted Date | + + + | Cholangitis | 11/24/2019 | + + + | Choledocholithiasis | 11/24/2019 | + + + | Obesity | 11/24/2019 | + + + | Tinea faciale | 11/24/2019 | + + + | H/O left nephrectomy | 11/24/2019 | + + + | Ovarian mass | 11/24/2019 | + + + | Hyperbilirubinemia | 11/24/2019 | + + + | Hypoalbuminemia | 11/24/2019 | + + + Immunizations + + + + | Name | Administration Dates | Next Due | + + + + | INFLUENZA PF | 05/31/2019, 06/01/2018, 06/03/2017 | | | QUAD(PED/ADOL/ADULT) | | | | ,PSKT or VIAL | | | + + + + | INFLUENZA PF | 05/28/2015, 09/02/2012 | | | TRIVALENT(PED/ADOL/A | | | | DULT), PSKT | | | + + + + | INFLUENZA QUADR | 05/31/2014 | | | W/PRES | | | | (PED/ADOL/ADULT) | | | | MULTIDOSE | | | + + + + | INFLUENZA TRIV | 05/25/2013 | | | W/PRES(PED/ADOL/ADUL | | | | T),MULTIDOSE | | | + + + + | INFLUENZA, | 06/24/2010, 06/03/2007, 07/14/2006, | | | UNSPECIFIED | 09/05/2004, 06/15/2003, 06/16/2002 | | | FORMULATION | | | + + + + | PNEUMOCOCCAL | 06/15/2003 | | | POLYSACCHARIDE | | | | 23-VALENT (PPSV23) | | | + + + + | TD, UNSPECIFIED | 06/03/2007, 05/28/1995 | | | FORMULATION | | | + + + + | ZOSTER, 1 DOSE | 09/02/2012 | | | (ZOSTAVAX) | | | + + + + Social History + +-------+ +--------+ + | [...] on file | | + + + Last Filed Vital Signs + + + + + | Vital Sign | Reading | Time Taken | Comments | + + + + + | Blood Pressure | 131/72 | 11/25/2019 7:40 AM | | | | | PDT | | + + + + + | Pulse | 69 | 11/25/2019 7:40 AM | | | | | PDT | | + + + + + | Temperature | 36.1 C (97 F) | 11/25/2019 7:40 AM | | | | | PDT | | + + + + + | Respiratory Rate | 18 | 11/25/2019 7:40 AM | | | | | PDT | | + + + + + | Oxygen Saturation | 97% | 11/25/2019 7:40 AM | | | | | PDT | | + + + + + | Inhaled Oxygen | - | - | | | Concentration | | | | + + + + + | Weight | 105 kg (231 lb 8 oz) | 11/23/2019 4:37 PM | | | | | PDT | | + + + + + | Height | 162.6 cm (5' 4") | 11/23/2019 4:32 PM | | | | | PDT | | + + + + + | Body Mass Index | 39.74 | 11/23/2019 4:32 PM | | | | | PDT | | + + + + + Plan of Treatment + + + + + | Health Maintenance | Due Date | Last | Comments | | | | Done | | + + + + + | Hepatitis C | | | | | Screening | 9 | | | + + + + + | Vaccine: | | 06/03/20 | | | Dtap/Tdap/Td (1 - | 8 | 07, | | | Tdap) | | 05/28/19 | | | | | 95 | | + + + + + | Colorectal Cancer | | | | | Screening | 9 | | | | (Colonoscopy) | | | | + + + + + | Breast Cancer | | | | | Screening | 4 | | | + + + + + | Vaccine: Zoster (2 | | 09/02/19 | | | of 3) | 3 | 13 | | + + + + + | Vaccine: | | 06/15/20 | | | Pneumococcal 65+ (1 | 4 | 03 | | | of 1 - PPSV23) | | | | + + + + + | Adult Annual | | | | | Wellness Visit | 0 | | | + + + + + | Vaccine: Influenza | Completed | 05/31/20 | | | | | 19, | | | | | 06/01/20 | | | | | 18, | | | | | 06/03/20 | | | | | 17, | | | | | Addition | | | | | al | | | | | history | | | | | exists | | + + + + + Results Not on filefrom Last 3 Months Insurance + +--------+ +--------+ +---------+--------+ | Payer | Benefi | Subscriber | Effect | Phone | Address | Type | | | t Plan | ID | melquiades | | | | | | / | | Dates | | | | | | Group | | | | | | + +--------+ +--------+ +---------+--------+ | MEDICARE | MEDICA | [id number] | 11/22/19 | [phone] | | Medica | | | RE | | 20-Pre | 5 | | re | | | PART A | | sent | | | | + +--------+ +--------+ +---------+--------+ | GEHA | GEHA | [id number] | 11/23/19 | [phone] | | PPO | | | AETNA | | 20-Pre | 6 | | | | | PPO | | sent | | | | + +--------+ +--------+ +---------+--------+ | [facility] | IHS | [id number] | 11/23/19 | | | Indemn | | SERVICE | YELLOW | | 20-Pre | | | ity | | | HAWK | | sent | | | | + +--------+ +--------+ +---------+--------+ + +--------+ +--------+ + + | Guarantor Name | Accoun | Relation to | Date | Phone | Billing Address | | | t Type | Patient | of | | | | | | | | | | + +--------+ +--------+ + + | Asiya Shepherd | Person | Self | [birth year] | [address] | | [place] | al/Fam | | 1950 | [phone] | [place] | | | radha | | | 1 (Home) | [address] | + +--------+ +--------+ + + Advance Directives + + + + + | Type | Date Recorded | Patient | Explanation | | | | Market Consultant | | + + + + + | Power of | | | | | Abstract Writer | | | | + + + + + | Advance | | | | | Directive | | | | + + + + + + + + + + | Code Status | Date | Date | Comments | | | Activated | Inactivated | | + + + + + | Full Code | 11/24/2019 | 11/25/2019 | | | | 12:29 AM | 4:17 PM | | + + + + + + + + +---+ | | | | | + + + +---+ | Full Code | 11/23/2019 | 11/24/2019 | | | by default | 4:40 PM | 12:29 AM | | | - TBD | | | | + + + +---+
--- OUTSIDE RECORDS SUMMARY | ~2020-02-25 | XMS | Encounter Summary ---
Demographics + + + | Address | [address] | | | [place] [address] | + + + | Home Phone | | + + + | Preferred Language | Unknown | + + + | Marital Status | | + + + | Pentecostal Affiliation | Unknown | + + + | Race | Unknown | + + + | Ethnic Group | Unknown | + + + Author + + + | Author | [facility] | | | and [place] | + + + | Organization | [facility] | | | and [place] | + + + | Address | Unknown | + + + | Phone | Unavailable | + + + Support + + + + + | Name | Relationship | Address | Phone | + + + + + | Malachi Shepherd | ECON | [id number] | | | | | [place] | | | | | [address] | | + + + + + Care Team Providers + +------+ + | Care Materials Specialist Name | Role | Phone | + [...] | +--------+ + + + + | 11/22/ | Hospital | [facility] | Enrique Triana MD | Cholangitis; H/O | | 2019 - | Encounter | [facility] | [address] | left nephrectomy; | | | | SURGICAL [address] | [place] [address] | Ovarian mass; Tinea | | 11/24/ | | [address] | [phone] | faciale; | | 2019 | | [address] | | Choledocholithiasis | | | | [phone] | Jorge Min | | | | | | MD Nima [address] | | | | | [address] [place], | | | | | | [place] [address] | | | | | | [phone] | | | | | | | | +--------+ + + + + Social History + [...] + + documented as of this encounter Last Filed Vital Signs + + + [...] | | + + + + + documented in this encounter Functional Status + + + + | Functional Status | Response | Date of Assessment | + + + + | Are you deaf or do you have serious | No | 11/25/2019 | | difficulty hearing? | | | + + + + | Are you blind or do you have serious | No | 11/25/2019 | | difficulty seeing, even when wearing | | | | glasses? | | | + + + + | Do you have serious difficulty walking or | No | 11/25/2019 | | climbing stairs? (5 years old or older) | | | + + + + | Do you have difficulty dressing or bathing? | No | 11/25/2019 | | (5 years old or older) | | | + + + + | Because of a physical, mental, or emotional | No | 11/25/2019 | | condition, do you have difficulty doing | | | | errands alone such as visiting a doctor's | | | | office or shopping? [15 years old or | | | | older)] | | | + + + + + + + + | Cognitive Status | Response | Date of Assessment | + + + + | Because of a physical, mental, or emotional | No | 11/25/2019 | | condition, do you have serious difficulty | | | | concentrating, remembering, or making | | | | decisions? (5 years old or older) | | | + + + + documented as of this encounter Discharge Summaries Jaxson Beltran MD - 11/25/2019 8:19 AM PDTFormatting of this note might be diff erent from the original. [facility] [place] Asiya Shepherd : 1950 PCP: Junior Yates Attending: Jorge Min Admission dx: Cholangitis Date of Admission: 11/23/2019 Date of Discharge: 11/25/2019 Asiya Shepherd is a 69 y.o. female being discharged to home. Problems Addressed this Admission Principal Problem: Cholangitis Active Problems: Choledocholithiasis Obesity Tinea faciale H/O left nephrectomy Ovarian mass Hyperbilirubinemia Hypoalbuminemia Issues requiring follow up after discharge: Watch for complications post-ERCP CMP in 1 week for resolution of Alk phos elevation Ovarian mass noted on US, complex with increased vascularity concerning for malignancy - - patient requests outpatient management Patient has 1/2 blood cultures growing G+ rods -- please follow final blood cultures as this is thought to be likely contaminant with improvement on Zosyn. Consultants this admission: GI Procedures this admission: ERCP with sphincterotomy and sphincteroplasty Pertinent lab and imaging results: Recent Labs Lab 11/25/19 0511/24/19 0548 11/23/19 2140 WBC 6.74 7.99 9.32 HGB 13.5 12.1 11.9 PLT 512* 475* 416* Recent Labs Lab 11/25/19 0513 11/24/19 0548 11/23/19 2140 ALT 19 14 15 AST 35 33 26 ALKPHOS 506* 438* 349* BILITOT 1.2* 1.3* 1.2* Recent Labs Lab 11/25/19 0513 11/24/19 0548 11/23/19 2140 NA 139 140 139 K 3.9 3.4* 3.8 CL 109 109 108 CO2 24 25 26 BUN 9 7* 9 CREA 0.65 0.62 0.62 GLU 77 79 86 CALCIUM 8.4* 8.2* 8.3* MG 1.8 1.7 1.8 ALBUMIN 2.8* 2.4* 2.5* Brief HPI: Asiya Shepherd is a 69 yr old female with hx of multiple abdominal surgeries including (L n ephrectomy 2006, loop ileostomy following fistula development, hernia repair and removal due to infection, cholecystectomy, and left colectomy) who presents as a transfer from [facility] for an ERCP due to concerns for acute cholangitis. Hospital Course: Patient was transferred from [facility] due to the need for ERCP based on bilir ubin of 4.2, WBC 17k, and RUQ pain with MRCP concerning for choledocholithiasis with cholang itis. Blood cultures x2 were drawn at [facility]. She was continued on Zosyn for antibiotics coverage. She was made NPO and an ERCP was perfo rmed 11/24/19 with findings of Choledocholithiasis, status post biliary sphincterotomy, sphinc teroplasty and stone extraction. It was performed without immediate complication. She was di scharged on 4 additional days of ciprofloxacin for a 5-day post-ERCP course of coverage. Her abdominal pain had improved by discharge and nearly resolved. Her bilirubin downtrended. No tably her Alk Phos was elevated to 506 on discharge, from presumed biliary origin, and will require outpatient follow-up. Her leukocytosis had resolved. Of note, during CT evaluation of her abdominal findings an incidental ovarian mass was note d. Pelvic US showed increased vascularity with concern for possible malignancy. She deferred inpatient management. Upon discharge, she reports she is working on scheduling a biopsy. Also of note, 1/2 blood cultures from [facility] showed G+ rods. This was deemed to be c ontaminant rather than G+ bacteremia. Final cultures are pending. Discharge Condition: Vitals Current Average / Min / Max for the last 24 hours Temp 36.1 C (97 F) Temp Min: 36.1 C (96.9 F) Max: 37.1 C (98.7 F) BP 131/72 BP Min: 113/64 Max: 145/66 HR 69 Pulse Av.7 Min: 69 Max: 80 RR 18 Resp Av.7 Min: 16 Max: 20 Sats 97 % SpO2 Min: 91 % Max: 97 % Today's Weight: 105 kg (231 lb 8 oz) Admit Weight:105 kg (231 lb 8 oz) General: Pleasant obese female, well developed, in no distress. Head: atraumatic, normocephalic. Eyes: EOM are normal. Sclera anicteric and non-injected. No periorbital edema. Lungs: CTAB, no crackles, wheezes, or rhonchi. No increased work of breathing. Cardiovascular: regularly irregular, with no murmurs, rubs, or gallops. Extremities are wa rm and well-perfused. Abdomen: Soft, obese, non-distended, non-tender, with no rebound or guarding. Normoactive bowel tones. Large scars from open cholecystectomy and laparotomy visible. Chronic wound n oted on her L side with mild erythema and clear drainage. See picture below. Musculoskeletal: No cyanosis or lower extremity edema. Neurologic: Alert and Oriented X3. CN grossly intact. Moving Upper and Lower extremities sy mmetrically and appropriately. Skin: Skin is warm and dry. See pictures below. Facial rash. Psych: Normal mood and affect. Normal speech rate. Answers questions appropriately with goo d eye contact. Her behavior is normal. Patient at discharge was in Good condition. Discharge Medication List: Discharge Medications New Medications Details ciprofloxacin 500 mg tablet Take 1 tablet by mouth 2 times daily for 4 days. aka: CIPRO Unchanged Medications Details acetaminophen 325 mg tablet Take 650 mg by mouth every 4 hours as needed for Pain. aka: TYLENOL Discharge Instructions It was a pleasure taking care of you in the hospital. You were treated for a stone in your bile tract. Please continue the antibiotics as prescribed until they run out. Please hydrate yourself well and continue on a low fat diet. We wish you all the best, The Family Medicine Team Discharge References/Attachments Dietary Fat, Facts About (French) Gallstones, Discharge Instructions (French) Cooking Tips, Low-Fat Tips (French) Follow Up: Junior Yates [address] [place] [address] Schedule an appointment as soon as possible for a visit in 1 week Jaxson Beltran MD 11/25/2019 1:59 PM Associated attestation - Jorge Min MD - 11/25/2019 3:46 PM PDTTeaching Physici an's Statement for Day of Discharge The patient was seen by the resident and me, and I confirmed the pertinent history. I confirmed pertinent physical exam findings, and agree with physical exam as documented. The indications for treatment were reviewed and I agree with the overall assessment and car e plan as documented. Any additional comments included below. The primary problem addressed by our service today is Cholangitis. See resident note for other problems addressed today. The patient is ready for discharge as described, and the discharge disposition is as noted in today's resident progress note. Patient is to follow-up with primary provider - other pr oviders as noted. For further details of hospital course, discharge medications, and follow -up please see the discharge summary. Electronically Signed by: Jorge Min MD Attending Physician [facility] [place] documented in this encounter Discharge Instructions Instructions Jaxson Beltran MD - 11/25/2019It was a pleasure taking care of you in the hospital. You were treated for a stone in your bile tract. Please continue the antibiotics as prescribed until they run out. Please hydrate yourself well and continue on a low fat diet. We wish you all the best, The Family Medicine Team AttachmentsThe following attachments cannot be sent through Care Everywhere.Dietary Fat, Fa cts About (French)Gallstones, Discharge Instructions (French)Cooking Tips, Low-Fat Tips (E nglish)documented in this encounter Medications at Time of Discharge + + + +---------+ + + | Medication | Sig | Dispensed | Refills | Start | End Date | | | | | | Date | | + + + +---------+ + + | acetaminophen | Take 650 mg by mouth | | 0 | | | | (TYLENOL) 325 mg | every 4 hours as | | | | | | tablet | needed for Pain. | | | | | + + + +---------+ + + | ciprofloxacin | Take 1 tablet by | 8 | 0 | 11/25/19 | | | (CIPRO) 500 mg | mouth 2 times daily | tablet | | 20 | 0 | | tablet | for 4 days. | | | | | + + + +---------+ + + documented as of this encounter Progress Notes Rhianna Borjas RN - 11/24/2019 1:11 PM PDTPatient was not seen today due to their unava ilability. Patient not in room , away for procedure at time of attempted assessment. Will co ntinue to attempt to F/U with patient. ZOË QuirozN, RN, [facility] Wound and Ostomy Department P: [phone] F: [phone]' Catia Caballero MD - 11/24/2019 7:47 AM PDTFormatting of this note might be different from the jil brown. [facility] [place] : 1950 PCP: Junior Yates DATE OF SERVICE: 11/24/2019 Admitted: 11/23/2019 4:12 PM Attending: Enrique Triana MD Admission dx: Cholangitis Hospital Day: 2 Subjective: Overnight, no major events. Patient admitted to the floor late yesterday afternoon with pl ans for ERCP today with GI. This morning, she is feeling better. Denies pain, nausea, vomiting, abdominal discomfort. She tolerated her clear liquid diet well last night without issues. She had some questions regarding length of procedure and discharge planning. Discussed her known ovarian mass as well and she expressed she would like to follow up on that outpatient. She otherwise had no other concerns. Objective: Physical Examination: Vitals Current Average / Min / Max Temp 36.2 C (97.2 F) Temp Min: 36.2 C (97.1 F) Max: 37.1 C (98.8 F) BP 122/58 BP Min: 122/58 Max: 168/79 HR 68 Pulse Av.4 Min: 64 Max: 84 RR 16 Resp Av.6 Min: 14 Max: 18 Sats 95 % SpO2 Min: 95 % Max: 98 % I/O last 24 Hours: In: 360 [P.O.:360] Out: - Today's Weight: 105 kg (231 lb 8 oz) Admit Weight:105 kg (231 lb 8 oz) BMI:Body mass index is 39.74 kg/m. Physical exam: General: Pleasant obese female, well developed, in no distress. Head: atraumatic, normocephalic. Eyes: EOM are normal. Sclera anicteric and non-injected. No periorbital edema. Lungs: CTAB, no crackles, wheezes, or rhonchi. No increased work of breathing. Cardiovascular: regularly irregular, with no murmurs, rubs, or gallops. Extremities are wa rm and well-perfused. Abdomen: Soft, obese, non-distended, non-tender, with no rebound or guarding. Normoactive bowel tones. Large scars from open cholecystectomy and laparotomy visible. Chronic wound n oted on her L side with mild erythema and clear drainage. See picture below. Musculoskeletal: No cyanosis or lower extremity edema. Neurologic: Alert and Oriented X3. CN grossly intact. Moving Upper and Lower extremities sy mmetrically and appropriately. Skin: Skin is warm and dry. See pictures below. Facial rash. Psych: Normal mood and affect. Normal speech rate. Answers questions appropriately with goo d eye contact. Her behavior is normal. Lines: PIV Medications: Scheduled PRN acetaminophen 650 mg Oral 4 times per day magnesium sulfate 2 g Intravenous Once miconazole Topical BID piperacillin-tazobactam 3.375 g Intravenous Q8H potassium chloride 40 mEq Oral Once bisacodyl, melatonin, ondansetron, ondansetron, polyethylene glycol, senna Continuous Infusions Labs: Recent Labs Lab 11/24/19 0548 11/23/19 2140 WBC 7.99 9.32 HGB 12.1 11.9 PLT 475* 416* Recent Labs Lab 11/24/19 0548 11/23/19 2140 ALT 14 15 AST 33 26 ALKPHOS 438* 349* BILITOT 1.3* 1.2* Recent Labs Lab 11/24/19 0548 11/23/19 2140 NA 140 139 K 3.4* 3.8 CL 109 108 CO2 25 26 BUN 7* 9 CREA 0.62 0.62 GLU 79 86 CALCIUM 8.2* 8.3* MG 1.7 1.8 ALBUMIN 2.4* 2.5* Recent Labs 11/23/19 2140 LACTATE 0.8 Microbiology Microbiology Results (72 hrs) No results found for the last 72 hours. Imaging: Imaging Results Reviewed: No results found. Assessment and Plan: Asiya Shepherd is a 69 y.o. female with complex surgical history who presents as a transfer from [place] for abdominal pain who was found to have a common bile duct stone and requires ERCP. Acute cholangitis CBD dilation with elevated leukocytosis of 22k likely 2/2 to choledocholithiasis with prior cholecystectomy. She is now status post MRCP which showed 29 mm Hepatic bile duct amd 18mm CBD w/ evidence of sludge ball vs stone in the CBD. Baltazar on Zosyn and transferred to [facility] for ERCP with GI. Appreciate their recommendations. Continue Zosyn IV N.p.o. w/ plan for ERCP today at 3pm with GI. - Fluid bolus as needed for MAPs >65 - Follow up urinary and blood cultures at outside hospital for severe infection. Ovarian Mass Concerning for ovarian cancer initially seen on CT, MRI and pelvic ultrasound imaging at [facility]. Patient does not wish to pursue intervention during this admission. She would l mere to pursue workup outpatient. - Follow up with outpatient gynecology - Repeat pelvic US in 6 mo Asymptomatic bacteruria Contaminated U/A at outside hospital. Started on Zosyn - Follow up culture data, and final sensitivities. - Continue IV zosyn Tinea faciei - Will continue with miconazole. Diet Orders: Diet NPO; strict NPO; Effective Midnight DVT Prophylaxis: heparin GI Prophylaxis: No prophylaxis indicated Dispo: Anticipated needs: PT/OT Anticipated location to: Home in 2-3 days pending ERCP and hospital course CODE STATUS: Full Code Catia Lopez MD 11/24/2019 7:47 AM Associated attestation - Enrique Triana MD - 11/24/2019 10:46 AM PDTTeaching Physician's Sta tement, Rounding: Date of Service: 11/24/19 Primary diagnosis billed today: Cholangitis During the hospital visit, I personally interviewed and examined the patient. I confirmed t he henderson components of the history and PE. I reviewed the note as written by the resident renzo delong, and discussed the patient with the resident team. I agree with the impressions and pl ans and have listed any needed clarifications. Electronically Signed by: Enrique Triana MD Attending Physician [facility] [place] documented in this encounter H&P Notes Vikash Mcmullen DO - 11/23/2019 2:26 PM PDT [facility] [place] Asiya Shepherd : 1950 PCP: Junior Yaets Admitted: 11/23/2019 4:12 PM Attending: Steven Siegel MD Admission dx: Cholangitis Chief Complaint: Asiya Shepherd is a 69 y.o. female who presents as a transfer from [facility] ([place]) for abdominal pain who was found to have a stone in her bile du ct. Information source: patient History of Present Illness: Asiya Shepherd is a 69 yr old female with hx of multiple abdominal surgeries including (L n ephrectomy 2006, loop ileostomy following fistula development, hernia repair and removal due to infection, cholecystectomy, and left colectomy) who presents as a transfer from [facility] for an ERCP due to concerns for acute cholangitis. Patient was admitted previously to [facility] following progressive 2-3 weeks of non-radiating RUQ abdominal pain described as sharp, constant for 15-30 minutes occurring 1-2 hour after meals. Other associated symptoms include chills, diaphoresis and decreased appetite. She denies She denies any nausea, vomiting, diarrhea, constipation, fever, diarrhea, or urinary sympto ms. Brief hospital course at [place] per chart review. Patient was seen in ED with stable vital signs with leukocytosis of 17k and elevated total bilirubin at 4.2. Normal lactate and lipase. A urinalysis was completed with urine culture h owever was contaminated with 4+ squamous cells. Blood cultures drawn and are pending. During evaluation of abdominal pain CT imaging notable for dilation of common bile duct as well as left ovarian mass. Additional studies for ovarian mass included pelvic ultrasound and MRI w hich are listed below. Gynecology was consulted in regards to the mass which showed increase d vascularity concerning for ovarian cancer. Patient however at that time reported that she would not wish to pursue any additional abdominal surgeries including oophorectomy. Per amina ent further evaluation of CBD an MRCP was done however due to the size of the obstruction di scussion with shot bagger at [place] regarding ERCP for relief and admission wit h hospitalist team. Patient was transferred via ambulance on IV zosyn in stable condition. Prior surgeries done by Junior Yates MD Outside hospital labs and imaging studies Chest XR 11/20/2019 Impression no acute pathology. CT abdomen and pelvis with contrast 11/20/2019: CT abdomen findings Gallbladder is absent with moderate extrahepatic biliary duct dilation. Left kidney is abs ent. Spleen, pancreas, and stomach are within normal limits. Pancreas is shifted towards t he left and posteriorly, and the spleen is shifted medially due to absent kidney. The right adrenal gland contains a tiny 1 low-density nodule, likely an adenoma. The aorta is normal in caliber with moderate calcification. No free fluid or free air is seen in the abdomen. CT pelvis findings: Numerous colonic diverticula.: Otherwise appears normal. Small bowel is decompressed. Anastomotic mercy are just to the left of the midline in the high pelvis , associated with the small bowel. There is no evidence of bowel obstruction, inflammation, or mass. Urinary bladder is almost empty. Uterus is small. The right ovary measures 23 x 26 mm and contains numerous tiny cysts. The left ovary is replaced by a multiloculated cys tic mass with enhancing septa. It measures 53 x 38 mm. There are surgical clips around its border. Pelvic ultrasound is recommended. Impression: No acute pathology. Left pelvic complex cystic mass. Nonemergent pelvic ultra sound is recommended. Transvaginal ultrasound 11/20/2019: Impression: Poorly demonstrated left complex cystic mass with septations containing vascularity. This could represent a serious cyst adenoma or car cinoma. Follow-up ultrasound in 6 months is suggested to determine whether there had been c hange in size. Alternative MRI could be performed. Degenerative disc disease, vacuum phenomenon, scoliosis, and spondylosis involving the lumb ar spine. Reported by: Naz Blanchard MD Pelvic ultrasound with transvaginal 11/20/2019. Follow-up on CT scan. Findings: A complex 54 x 35 x 49 mm cystic masses in the left pelvis. This is presumably related to the left o vary. Multiple septations are seen within it. Peripheral vascularity is noted. There is a lso vascularity in the septa. No definitive nodularity is seen within it. But there is roger e shadowing by bowel gas obscuring details. There is no ascites. Impression: Poorly demonstrated left complex cystic mass with septations containing vascula rity. This could represent a serious cystadenoma or a carcinoma. Follow-up ultrasound in 6 months is suggested to determine whether there has been change in size. Alternatively if M RI could be also be performed. MRI abdomen with and without contrast: 11/20/2019: Findings include the intrahepatic biliary tree mildly dilated. The common hepatic duct measures 29 mm and the common bile duct measu res 18 mm in diameter. In the distal common bile duct there is a low signal slightly lobula jason nodule measuring 14 x 11 mm. It does not enhance, and is consistent with either a sludg e ball or a stone. It is occult on the CT scan because of motion artifact and artifact due to the morbid obesity. The liver is normal in size and contains no focal or enhancing lesio ns. The pancreas appears normal. The left kidney is absent. The right kidney appears norm al. Very small right adrenal nodule is present as noted on CT. The left adrenal gland and spleen are unremarkable. There is no free fluid. The coronal images include the pelvis, an d the multicystic mass in the left pelvis is noted. It has multiple septations and small no dules, but none of it enhances. The right ovary contains numerous tiny follicles, without e nhancement. The uterus is small and poorly visualized. The urinary bladder is nearly empty . There are bilateral bladder diverticula containing urine. The aorta and pelvic arteries are within normal limits. Levoscoliosis is present. Impression: Dilated biliary tree with a distal common bile duct stone sludge ball. The ova jeffry show cyst, left larger than right, but no abnormal enhancement. Reported by: Naz Blanchard MD Labs 11/21 BMP: Sodium 134, potassium 3.9, chloride 106, carbon dioxide 23, BUN 16, creatinine 0.77, g lucose 84, calcium 8, phosphorus 2.9, magnesium 1.7. AST 31, ALT 17, alk phos 315, lactate dehydrogenase 96, GGT 385, BUN 2.1. CBC WBC 21.1, hemoglobin 11.6, hematocrit 36.2, platelets 365, MCV 90.2 The past medical, surgical, family, and social history as well as allergies and current med ications were reviewed and documented below Past Medical History Past Medical History: Diagnosis Date Diverticulosis Obesity Past Surgical History Past Surgical History: Procedure Laterality Date ABDOMINAL HERNIA REPAIR and subsequent removal due to infection CHOLECYSTECTOMY ILEOSTOMY NEPHRECTOMY Left 2006 Family History Her family history is not on file. Social Hx She reports that she quit smoking about 6 months ago. She has a 20.00 pack-year smoking hi story. She has never used smokeless tobacco. She reports previous alcohol use. She reports t hat she does not use drugs. Social History Social History Narrative Patient lives in [place] with her Stuart who is POA. 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 Medications Medications Prior to Admission Medication Sig Dispense Refill acetaminophen (TYLENOL) 325 mg tablet Take 650 mg by mouth every 4 hours as needed for Pain. Allergies: Allergies Allergen Reactions Aspirin Unknown Review of Systems: Review of Systems Constitutional: Negative for chills, fever and malaise/fatigue. HENT: Negative for congestion and sinus pain. Respiratory: Negative for cough and shortness of breath. Cardiovascular: Negative for chest pain and palpitations. Gastrointestinal: Positive for abdominal pain. Negative for constipation, diarrhea, nausea and vomiting. Genitourinary: Negative for dysuria, flank pain, frequency and urgency. Musculoskeletal: Positive for back pain (chronic if laying flat). Negative for myalgias. Skin: Positive for rash. Neurological: Negative for dizziness, weakness and headaches. Psychiatric/Behavioral: Negative for depression. The patient does not have insomnia. Physical Examination: BP 143/66 | Pulse 72 | Temp 36.4 C (97.5 F) (Temporal) | Resp 17 | Ht 1.626 m (5' 4 ") | Wt 105 kg (231 lb 8 oz) | LMP (LMP Unknown) | SpO2 98% | No | BMI 3 9.74 kg/m Admit Weight:105 kg (231 lb 8 oz) BMI:Body mass index is 39.74 kg/m. Physical exam: General: Pleasant obese female, in no distress. Head: atraumatic, normocephalic. Eyes: EOM are normal. Sclera slightly icteric and non-injected. No periorbital edema. Nose: turbinates without erythema, no swelling Mouth: MMM. No lesions seen in mouth. Throat nonerythematous, no exudate seen. Lungs: CTAB however decreased air movement, no crackles, wheezes, or rhonchi. No increased work of breathing. Cardiovascular: RRR with no murmurs, rubs, or gallops. Extremities are warm and well-perfus ed. Abdomen: Soft, non-distended, tender over left nephrectomy site as well as epigastric tende rness. Hyperactive bowel tones. Musculoskeletal: No cyanosis or lower extremity edema. Neurologic: Alert and Oriented X3. CN grossly intact. Moving Upper and Lower extremities sy mmetrically and appropriately. Skin: Skin is warm and dry. Chronic well healed abdominal scars. Left flank lesion is a cooper ear denuded streak with surrounding erythema. Forehead lesion is a circular 3x4 cm gutierrez colo red plaque with a rough sandpaper-like texture. Similar lesion on right cheek 2x2 cm. See at tached image of facial and abdominal lesions. Psych: Normal mood and affect. Normal speech rate. Answers questions appropriately with goo d eye contact. Her behavior is normal. Labs drawn in the last 24 hours were reviewed and are documented below. Recent Results (from the past 24 hour(s)) Lactic Acid Result Value Ref Range Lactate, Venous 0.8 0.5 - 2.2 mmol/L CBC no Differential Result Value Ref Range WBC 9.32 3.80 - 11.00 K/uL RBC 4.03 3.70 - 5.10 M/uL Hemoglobin 11.9 11.3 - 15.5 g/dL Hct 37.0 34.0 - 46.0 % MCV 91.8 80.0 - 100.0 fL MCH 29.5 27.0 - 34.0 pg MCHC 32.2 32.0 - 35.5 g/dL RDW-CV 14.6 11.0 - 15.5 % Platelet Count 416 (H) 150 - 400 K/uL MPV 9.4 9.3 - 12.7 fL Comprehensive Metabolic Panel Result Value Ref Range Na 139 135 - 145 mmol/L K 3.8 3.5 - 5.0 mmol/L Cl 108 99 - 109 mmol/L CO2 26 21 - 28 mmol/L Calcium 8.3 (L) 8.5 - 10.2 mg/dL Anion Gap 5 5 - 16 mmol/L Albumin 2.5 (L) 3.3 - 4.8 g/dL BUN 9 8 - 25 mg/dL Creatinine 0.62 0.50 - 1.00 mg/dL Glucose 86 65 - 99 mg/dL Total Protein 6.3 6.1 - 7.8 g/dL Alkaline Phosphatase 349 (H) 35 - 115 U/L ALT 15 10 - 65 U/L AST 26 10 - 45 U/L Bilirubin Total 1.2 (H) 0.2 - 1.1 mg/dL Estimated GFR 92 >=90 mL/min/1.73m2 Magnesium Result Value Ref Range Magnesium 1.8 1.7 - 2.4 mg/dL Imaging Reviewed: No results found. Assessment and Plan, Problem based: Asiya Shepherd is a 69-year-old female who presents as a transfer from [place] for abdo amandeep pain who was found to have a common bile duct stone and requires ERCP. Acute cholangitis Assessment: CBD dilation with elevated leukocytosis of 22k likely 2/2 to choledocholithiasi s with prior cholecystectomy. She is now status post MRCP which showed 29 mm bile duct stone . Baltazar on Zosyn and transferred to [place] for ERCP with GI. Appreciate their recom mendations. Continue Zosyn IV N.p.o. at midnight Plan for ERCP tomorrow morning with GI. - Repeat labs today including CBC, CMP, and lactate acid. - Fluid bolus as needed for MAPs >65 or elevated lactate acid. - Follow up urinary and blood cultures at outside hospital for severe infection. Ovarian Mass Assessment: Concerning for ovarian cancer initially seen on CT, MRI and pelvic ultrasound debbie carson at [facility] patient does not wish to pursue additional workup or surgeries at is point for lesion during this admission. - Follow up with outpatient gynecology Asymptomatic bacteruria Contaminated U/A at outside hospital. Started on Zosyn - Follow up culture data, and final sensitivities. - Continue IV zosyn Tinea faciei - Will continue with miconazole. DVT Prophylaxis: heparin GI Prophylaxis: No prophylaxis indicated Dispo anticipated needs: PT/OT/SW CODE STATUS was reviewed and is documented here: Full Code Ric Mcmullen DO 11/24/2019 1:54 AM This admission was discussed with Dr. Steven Siegel MD. Associated attestation - Steven Siegel MD - 11/24/2019 9:06 AM PDTDuring the init ia hospital visit, I reviewed the resident's note recorded by Vikash Mcmullen DO dated 020 and discussed the patient with the resident team. I agree with the impressions and plan s and have listed any needed clarifications. Date of service: 11/24/19 Primary diagnosis billed today: Cholangitis I expect this patient will be hospitalized for greater than 2-midnights and expect the post -hospital plan to be determined once additional information is obtained. documented in this encounter Miscellaneous Notes Plan of Care - Lana Boone RN - 11/25/2019 12:49 PM PDTPt a/o x4. VSS. No c/o pain . Independent OOB w/ FWW. Has been pleasant and cooperative w/ cares. All discharge orders r eviewed, concerns addressed. Family has arrived for transportation. PO abx at [facility] pharmacy. Adequate for discharge. Electronically signed by: Lana Boone RN 11/25/2019 12:50 PM lan of Care - Sandra Marsh MD - 11/25/2019 12:21 PM PDTGastroenterology note Clinically improving. Her LFTs are relatively stable. She is getting discharged today. Impression: 1. Choledocholithiasis with cholangitis 2. Abnormal liver enzymes secondary to above Plan: 1. C/w abx; okay to switch to cipro 500mg daily for 5 days 2. Repeat LFTs in 3-5 days. Plan discussed with resident physician. Sandra Randhawa MD Gastroenterology & Hepatology [facility] [phone] lan of Care - Jessica Woo RN - 11/25/2019 3:12 AM PDTFormatting of this note might be different from the o riginal. Nursing Handoff Note Room # 536/536-01 Isolation: None Code Status: Full Code Item for sleep lab technician Comments Shift Summary: Patient has denied pain. Denies nausea, ate dinner. Up to the bathroom with SBA and walker. Scheduled Tylenol adequate for pain. Zosyn given as ordered, Right wrist PIV . Very pleasant, alert and oriented. Dx/Tx: Procedure(s) (LRB): ENDOSCOPIC RETROGRADE CHOLANGIOPANREATOG (N/A) Anesthesia Type General OR/Procedure Time Date of Surgery 11/24/2019 1 Day Post-Op Active Diet Order: Current active diet order is: Diet Diet general; Effective Now PICC/Central Line? Active PICC Lines None Active Gtt: PIV @tko Abn Labs/Tx: Skin/Wounds: Mesfin Score: 20 Comments: Mobility/HRF: 1 assist, walker Therapy Involved? (PT/OT/ST/RT) [] Yes [x] No DC Plan: (Able to manage at home?) Reyes/Voiding: [] Voiding [] BU [] Check Void Time Active Urinary Caths None Drain: Active Drains None Ostomy: Active NG/OG/PEGs None Last bowel movement: Stool Occurrence: 1 (11/24/192153) Last Bowel Movement: 11/24/19 (11/24/191958) Pain Management: Next Dose: CAM CAM Score: no MD Notification: Notification Provider Name/Title: Resident- family medicine (11/23/191636) Method of Communication: Face to face (11/23/191636) Reason for Communication: Review case(hypertensive ) (11/23/19 1637) Vitals: 11/24/19 1445 11/24/19 1504 11/24/19 1901 11/25/19 0031 BP: 137/70 120/60 113/64 Pulse: 70 75 69 Resp: 18 20 18 Temp: 36.1 C (96.9 F) 37.1 C (98.7 F) 36.2 C (97.2 F) TempSrc: Temporal Temporal Temporal SpO2: 96% 95% 95% 91% Weight: Height: No results found for: POCGLU lan of [place] - Andreea Arellano RN - 11/24/2019 6:35 PM PDTFormatting of this note might be different from the o riginal. 6N / 6S Shift Summary Note Shift Summary Information: S/p ERCP today with bilary sphincterotomy. VSS, no complaints of pain. IV abx given. 1A w. FWW. Pt has L flank wound from previous nephrostomy tube. Room # 536/536-01 Name: Asiya Shepherd [id number] Code Status: Full Code Isolation: None Dx/Tx: Surgery/ Procedure: Vitals: 11/24/19 1432 11/24/19 1440 11/24/19 1445 11/24/19 1504 BP: 134/65 145/66 137/70 Pulse: 77 76 70 Resp: 16 18 18 Temp: 36.1 C (96.9 F) TempSrc: Temporal SpO2: 97% 97% 96% 95% Weight: Height: Neuro: AOx4 Resp: Room air, no sob LDAs R PIV cdi Cardiac: WNL Bed Alarm on? [] Yes / [x] No Active Gtts: Abnormal Labs/ Treatment: See labs GI: Normal per pt Current active diet order is: Diet Diet general; Effective Now Last Bowel Movement: 11/24/19 (11/24/19 1545) : Up to BR 1Assist Skin: (Incisions/ Wounds/ Edema) L flank wound Pain: None reported Activity: 1A to BR Bed Alarm on? [] Yes / [x] No Yellow band on? [] Yes / [x] No Therapy involved?: C-SSRS Monitoring Requirements [facility] Suicide Policy [facility] Suicide Risk/Telesitter Screening Utilizing this rating scale, the suicidal patient will be monitored in the following manner : [] Score <=2 "yes" responses, Patient does not require observation [] Score =3 "yes" responses, Patient can be observed using a Telesitter [] Score >=4 "yes" responses, Patient requires in person continual visual observation Appropriate interventions were placed based on the above criteria and room preparation will be completed for safety based on suicide observation protocols. lan of Care - Isabel Begum RN - 11/24/2019 2:50 PM PDTPatient had an ERCP. Vital signs stable. Denies pain or nausea. Report called to Kevin MELGAR. Electronically signed by Isabel Begum RN at 0 2:51 PM PDTD-C Instructions Provation - Carlos Torres MD - 11/24/2019 1:46 PM PDTPa tient Instructions After ERCP Patient: Asiya Shepherd Procedure Date: Sunday, November 24, 2019 Attending MD: CARLOS TORRES MD; Work: You had a ERCP today. Your doctor made the following findings: -Choledocholithiasis, status post biliary sphincterotomy, sphincteroplasty and stone extraction Your doctor recommends: You have a contact number available for emergencies. The signs and symptoms of potential delayed complications were discussed with you. You may return to normal activities tomorrow. Written discharge instructions were provided to you. Watch for symptoms of pancreatitis, bleeding, perforation and cholangitis. Advance your diet as tolerated. Continue your present medications. Return to your referring physician as previously scheduled. CALL YOUR PHYSICIAN IF YOU EXPERIENCE: Work: < Any unusual abdominal pain. < Any shoulder pain. < Temperature above 100 degrees Fahrenheit < Rectal bleeding in excess of 2 Tablespoons DIET: If you have undergone diagnostic colonosocpy, you may resume your regular diet immediately after the procedure unless otherwise instructed by your doctor. CAUTIONS: The medications used to make the examination more comfortable for you will be acting in your body for up to 24 hours. Therefore: < DO NOT drive a car or operate machinery or power tools. < DO NOT drink alcohol or take tranquillizers or sleeping pills. < DO NOT make major personal decisions. This includes signing legal documents and/or contracts. MEDICATIONS: Most medications can be safely resumed once you can eat. The exceptions would be tranquillizers and sleeping pills. CARLOS TORRES MD 11/24/2019 3:03:27 PM This report has been signed electronically. lan of [facility], Lana Stanford RN - 11/24/2019 12:55 PM PDTFor matting of this note might be different from the original. Nursing Handoff Note Room # 536/536-01 None Admitting: Enrique Triana MD Attending: Enrique Triana MD Item for sleep lab technician Comments Shift Summary Shift note: to ENDO at 1300 for ERCP. Ambulates with walker and one assist. Needs assist l ifting legs into bed. Has an old incision from a nephrectomy that has never completely heale d. Has a gauze dressing in place and a wound care consult. Diagnosis/Treatment Cholangitis OR/Procedure Time Date of Surgery 11/24/2019 * No surgery date entered * Code Status Full Code Acevedo Fall Risk Acevedo Fall Risk Level: Medium Neuro/Mentation/CAM +/- Orientation: Oriented X 4 CAM Score: no Pain Management: Denies pain Anesthesia [] Spinal / [] Exparel / [] General Anesthesia / [] Nerve Block Respiratory/Oxygen liters/minute room air [] Room Air / [] O2 / [] Capnography Vioptics/Drains Active Drains None GI/Diet Current active diet order is: Diet Diet NPO; strict NPO; Effective Midnight Last bowel movement 11/21 /Reyes Active Urinary Caths None [x] Voids / [] Incontinent / [] Straight Cath / [] Check for void Active Gtt [x] IVF / [] IV/CONSERVATION EDUCATOR / [] Medlocked [] Peripheral IV / [] CVC / [] PICC / [] Port Abnormal Labs Lab Results Component Value Date WBC 7.99 11/24/2019 HGB 12.1 11/24/2019 HCT 38.8 11/24/2019 PLT 475 (H) 11/24/2019 NA 140 11/24/2019 K 3.4 (L) 11/24/2019 MG 1.7 11/24/2019 BUN 7 (L) 11/24/2019 CREA 0.62 11/24/2019 Skin Mesfin Score: 20 (Low risk) [x] Lifted & looked under devices [x] Continue to assess each shift [x] Encouraged frequent repositioning Mobility/HRF/WB Status Activity: [] Independent / [x] SBA / [] Min Assist / [] Mod Assist / [] Max Assist / [] Bedrest [x] FWW / [] Crutches / [] Wheelchair / [] Other Weight Bearing: [] RUE / [] LUE / [] RLE / [] LLE [] As tolerated / []50% WB / [] TTWB / [] Platform / [] NWB Precautions:Fall hx/high fall risk and calls for assist Therapy Involved [x] PT / [] OT / [] RT / [] Speech Therapy [] Wound Care VTE Prophylaxis [] Pharmacological / [] Mechanical DC Plan [] Home / [] Home with HH / [] SNF / [] IRF / [] Other Hospital Fall C-SSRS Monitoring Requirements [facility] Suicide Policy [facility] Suicide Risk/Telesitter Screening Utilizing this rating scale, the suicidal patient will be monitored in the following manner : [] Score <=2 "yes" responses, Patient does not require observation [] Score =3 "yes" responses, Patient can be observed using a Telesitter [] Score >=4 "yes" responses, Patient requires in person continual visual observation Appropriate interventions were placed based on the above criteria and room preparation will be completed for safety based on suicide observation protocols. Vitals: 11/23/196 11/24/19 0000 11/24/19 0437 11/24/19 0721 BP: 135/61 143/66 127/64 122/58 Pulse: 74 72 64 68 Resp: 18 17 14 16 Temp: 37.1 C (98.8 F) 36.4 C (97.5 F) 36.2 C (97.1 F) 36.2 C (97.2 F) TempSrc: Temporal Temporal Temporal Temporal SpO2: 96% 98% 98% 95% Weight: Height: No results found for: POCGLU No data found. lan of Care - Rhoda Lassiter RN - 11/24/2019 4:57 AM PDTA/O. Wears glasses. Pain well controlled with tylenol scheduled. PIV zosyn infusing. Patent. IV started in [facility]. NPO for ERCP today at 1500. Left flank non-healing wound. Gauze dressing CDI. Anti-fungal applied to face. Pale colored stools. She had a small loose stool this shift. Voiding adequately in toilet. Unable to measure due to riser. Urine is yellow. SBA with FWW. Electronically signed by: Rhoda Garcia RN 11/24/2019 5:00 AM lan of Care - Milena Lopez RN - 11/23/2019 10:45 PM PDT-Direct admit from [place] -Alert and oriented -Denies pain/nausea -Left flank chronic wound cleansed and covered w/ gauze -Up w/ SBA and FWW to bathroom -Voiding and had BM tonight -PIV x 1 w/ IV abx infusing -Clear liquids, NPO at midnight lan of Care - Kim Scott RN - 11/23/2019 4:49 PM PDTAdmission screen completed by Ana Maria Alvarez Report handoff given to [address] [place] [address] TALIA Rodgers RN has completed admission flow sheet except for shift assessment, fall risk, mesfin assessment. Ana Maria MELGAR has also completed belongings and sleep apnea Information for admission documentation was received from patient Patient is A+O documented in this encounter Plan of Treatment Not on filedocumented as of this encounter Procedures + +--------+ + + + | Procedure Name | Priori | Date/Time | Associated Diagnosis | Comments | | | ty | | | | + +--------+ + + + | CBC NO DIFFERENTIAL | Routin | 11/25/2019 | | Results for this | | | e | 5:13 AM | | procedure are in the | | | | PDT | | results section. | + +--------+ + + + | MAGNESIUM | Routin | 11/25/2019 | | Results for this | | | e | 5:13 AM | | procedure are in the | | | | PDT | | results section. | + +--------+ + + + | COMPREHENSIVE | Routin | 11/25/2019 | | Results for this | | METABOLIC PANEL | e | 5:13 AM | | procedure are in the | | | | PDT | | results section. | + +--------+ + + + | FL ERCP BILIARY ONLY | Routin | 11/24/2019 | | Results for this | | | e | 2:29 PM | | procedure are in the | | | | PDT | | results section. | + +--------+ + + + | PA ERCP DX | Routin | 11/24/2019 | | Results for this | | COLLECTION SPECIMEN | e | 1:46 PM | | procedure are in the | | BRUSHING/WASHING | | PDT | | results section. | + +--------+ + + + | ENDOSCOPIC | | 11/24/2019 | Stones common duct | | | RETROGRADE | | 1:43 PM | | | | CHOLANGIOPANREATOG | | PDT | | | + +--------+ + + + +---+--------+ | | Case | | | Notes | | | U/E | | | PER | | | . YASMANI | | | | | | ERICA | | | . | +---+--------+ | | | | | Specia | | | l | | | Needs | | | PT | | | TRANSF | | | ER | | | FROM | | | PENDLE | | | TON | +---+--------+ + +--------+ +---+ + | CBC WITH | Routin | 11/24/2019 | | Results for this | | DIFFERENTIAL | e | 5:48 AM | | procedure are in the | | | | PDT | | results section. | + +--------+ +---+ + | MAGNESIUM | Routin | 11/24/2019 | | Results for this | | | e | 5:48 AM | | procedure are in the | | | | PDT | | results section. | + +--------+ +---+ + | COMPREHENSIVE | Routin | 11/24/2019 | | Results for this | | METABOLIC PANEL | e | 5:48 AM | | procedure are in the | | | | PDT | | results section. | + +--------+ +---+ + | CBC NO DIFFERENTIAL | STAT | 11/23/2019 | | Results for this | | | | 9:40 PM | | procedure are in the | | | | PDT | | results section. | + +--------+ +---+ + | MAGNESIUM | STAT | 11/23/2019 | | Results for this | | | | 9:40 PM | | procedure are in the | | | | PDT | | results section. | + +--------+ +---+ + | LACTIC ACID | STAT | 11/23/2019 | | Results for this | | | | 9:40 PM | | procedure are in the | | | | PDT | | results section. | + +--------+ +---+ + | COMPREHENSIVE | STAT | 11/23/2019 | | Results for this | | METABOLIC PANEL | | 9:40 PM | | procedure are in the | | | | PDT | | results section. | + +--------+ +---+ + | LABS - EXTERNAL SCAN | | 11/20/2019 | | Results for this | | | | 12:00 AM | | procedure are in the | | | | PDT | | results section. | + +--------+ +---+ + documented in this encounter Results Magnesium (11/25/2019 5:13 AM PDT) + + + +--------- ----+ + | Component | Value | Ref Range | Performe d | Pathologist | | | | | At | Signature | + + + +--------- ----+ + | Magnesium | 1.8Comment: Performed | 1.7 - 2.4 mg/dL | [facility] | | | | by [facility] [address], | | [facility]CR[facility] | | | | [place] [address] | | HEART | | | |Performed by [facility] [address], [place] [address] | | MEDICAL | | | | | | CENTER | | | | | | LABORATO [facility] | | | | | | [facility] | | + + + +--------- ----+ + + + | Specimen | + + | Blood specimen | | (specimen) | + + + + + + + | Performing | Address | City/State/Zipcode | Phone Number | | Organization | | | | + + + + + | [facility] | [address] | [place] [address] | | | [facility] | | | | | [facility]AT[facility] | | | | + + + + + Comprehensive Metabolic Panel (11/25/2019 5:13 AM PDT) + + + + + + | Component | Value | Ref Range | Performed | Pathologist | | | | | At | Signature | + + + + + + | Na | 139 | 135 - 145 | [facility] | | | | | mmol/L | [facility] | | | | | | HEART | | | | | | MEDICAL | | | | | | CENTER | | | | | | LABORATORY | | | | | | [facility] | | + + + + + + | K | 3.9 | 3.5 - 5.0 | [facility] | | | | | mmol/L | [facility] | | | | | | HEART | | | | | | MEDICAL | | | | | | CENTER | | | | | | LABORATORY | | | | | | [facility] | | + + + + + + | Cl | 109 | 99 - 109 mmol/L | [facility] | | | | | | [facility]CR[facility] | | | | | | HEART | | | | | | MEDICAL | | | | | | CENTER | | | | | | LABORATORY | | | | | | [facility] | | + + + + + + | CO2 | 24 | 21 - 28 mmol/L | [facility] | | | | | | [facility] | | | | | | HEART | | | | | | MEDICAL | | | | | | CENTER | | | | | | LABORATORY | | | | | | [facility] | | + + + + + + | Calcium | 8.4 (L) | 8.5 - 10.2 | [facility] | | | | | mg/dL | [facility]CR[facility] | | | | | | HEART | | | | | | MEDICAL | | | | | | CENTER | | | | | | LABORATORY | | | | | | [facility] | | + + + + + + | Anion Gap | 6 | 5 - 16 mmol/L | [facility] | | | | | | [facility] | | | | | | HEART | | | | | | MEDICAL | | | | | | CENTER | | | | | | LABORATORY | | | | | | [facility] | | + + + + + + | Albumin | 2.8 (L) | 3.3 - 4.8 g/dL | [facility] | | | | | | [facility] | | | | | | HEART | | | | | | MEDICAL | | | | | | CENTER | | | | | | LABORATORY | | | | | | [facility] | | + + + + + + | BUN | 9 | 8 - 25 mg/dL | [facility] | | | | | | [facility] | | | | | | HEART | | | | | | MEDICAL | | | | | | CENTER | | | | | | LABORATORY | | | | | | [facility] | | + + + + + + | Creatinine | 0.65 | 0.50 - 1.00 | [facility] | | | | | mg/dL | [facility] | | | | | | HEART | | | | | | MEDICAL | | | | | | CENTER | | | | | | LABORATORY | | | | | | [facility] | | + + + + + + | Glucose | 77 | 65 - 99 mg/dL | [facility] | | | | | | [facility] | | | | | | HEART | | | | | | MEDICAL | | | | | | CENTER | | | | | | LABORATORY | | | | | | [facility] | | + + + + + + | Total | 7.4 | 6.1 - 7.8 g/dL | [facility] | | | Protein | | | [facility] | | | | | | HEART | | | | | | MEDICAL | | | | | | CENTER | | | | | | LABORATORY | | | | | | [facility] | | + + + + + + | Alkaline | 506 (H) | 35 - 115 U/L | [facility] | | | Phosphatase | | | [facility] | | | | | | HEART | | | | | | MEDICAL | | | | | | CENTER | | | | | | LABORATORY | | | | | | [facility] | | + + + + + + | ALT | 19 | 10 - 65 U/L | [facility] | | | | | | [facility] | | | | | | HEART | | | | | | MEDICAL | | | | | | CENTER | | | | | | LABORATORY | | | | | | [facility] | | + + + + + + | AST | 35 | 10 - 45 U/L | [facility] | | | | | | [facility] | | | | | | HEART | | | | | | MEDICAL | | | | | | CENTER | | | | | | LABORATORY | | | | | | [facility] | | + + + + + + | Bilirubin | 1.2 (H) | 0.2 - 1.1 mg/dL | [facility] | | | Total | | | [facility] | | | | | | HEART | | | | | | MEDICAL | | | | | | CENTER | | | | | | LABORATORY | | | | | | [facility] | | + + + + + + | Estimated | 90Comment: eGFR<60 | >=90 | [facility] | | | GFR | consistent with impaired | mL/min/1.73m2 | [facility] | | | | kidney function.For | | HEART | | | | [place], | | MEDICAL | | | | multiply the calculated | | CENTER | | | | GFR by 1.210Performed by | | LABORATORY | | | | [facility] [address], | | [place] | | | | [place] [address] | | | | + + + + + + + + | Specimen | + + | Blood specimen | | (specimen) | + + + + + + + | Performing | Address | City/State/Zipcode | Phone Number | | Organization | | | | + + + + + | [facility] | [address] | [place] [address] | | | [facility] | | | | | [facility] | | | | + + + + + CBC no Differential (11/25/2019 5:13 AM PDT) + + + + + + | Component | Value | Ref Range | Performed | Pathologist | | | | | At | Signature | + + + + + + | WBC | 6.74 | 3.80 - 11.00 | [facility] | | | | | K/uL | [facility] | | | | | | HEART | | | | | | MEDICAL | | | | | | CENTER | | | | | | LABORATORY | | | | | | [facility] | | + + + + + + | RBC | 4.52 | 3.70 - 5.10 | [facility] | | | | | M/uL | [facility] | | | | | | HEART | | | | | | MEDICAL | | | | | | CENTER | | | | | | LABORATORY | | | | | | [place] | | + + + + + + | Hemoglobin | 13.5 | 11.3 - 15.5 | [facility] | | | | | g/dL | [facility] | | | | | | HEART | | | | | | MEDICAL | | | | | | CENTER | | | | | | LABORATORY | | | | | | [facility] | | + + + + + + | Hct | 41.6 | 34.0 - 46.0 % | [facility] | | | | | | [facility] | | | | | | HEART | | | | | | MEDICAL | | | | | | CENTER | | | | | | LABORATORY | | | | | | [facility] | | + + + + + + | MCV | 92.0 | 80.0 - 100.0 fL | [facility] | | | | | | [facility] | | | | | | HEART | | | | | | MEDICAL | | | | | | CENTER | | | | | | LABORATORY | | | | | | [facility] | | + + + + + + | MCH | 29.9 | 27.0 - 34.0 pg | [facility] | | | | | | [facility] | [facility] | | | | | | MEDICAL | | | | | | CENTER | | | | | | LABORATORY | | | | | | [facility] | | + + + + + + | MCHC | 32.5 | 32.0 - 35.5 | [facility] | | | | | g/dL | [facility] | | | | | | HEART | | | | | | MEDICAL | | | | | | CENTER | | | | | | LABORATORY | | | | | | CERN[facility] | | + + + + + + | RDW-CV | 14.6 | 11.0 - 15.5 % | [facility] | | | | | | [facility] | | | | | | HEART | | | | | | MEDICAL | | | | | | CENTER | | | | | | LABORATORY | | | | | | CERNER | | + + + + + + | Platelet | 512 (H) | 150 - 400 K/uL | [facility] | | | Count | | | [facility] | | | | | | HEART | | | | | | MEDICAL | | | | | | CENTER | | | | | | LABORATORY | | | | | | CERN[facility] | | + + + + + + | MPV | 9.1 (L)Comment: | 9.3 - 12.7 fL | [facility] | | | | Performed by [facility] [address] | | [facility] | | | | [address] [place] | | HEART | | | | [id number] | | MEDICAL | | | | | | CENTER | | | | | | LABORATORY | | | | | | CERNER | | + + + + + + + + | Specimen | + + | Blood specimen | | (specimen) | + + + + + + + | Performing | Address | City/State/Zipcode | Phone Number | | Organization | | | | + + + + + | [facility] | [address] | [place] [address] | | | [facility] | | | | | LABORATORY [place] | | | | + + + + + [place] ERCP Biliary Only (11/24/2019 2:29 PM PDT) + + | Specimen | + + | | + + + + + | Impressions | Performed At | + + + | Fluoroscopic assistance for ERCP. Signed by: Rupinder | [facility] | | Heraclio Ashford Date/Time: 11/24/2019 2:59 PM | | + + + + + + | Narrative | Performed At | + + + | ERCP BILIARY CLINICAL INFORMATION: Dilated common bile duct. | [facility] | | COMPARISON: None. FINDINGS: Seven spot views obtained shows | | | cannulation of the common bile duct which is dilated. 2 | | | minute(s)49 seconds | | + + + + + | Procedure Note | + + | Leno Arriaga Results In - 11/24/2019 7:37 PM PDT | | ERCP BILIARY | | | | CLINICAL INFORMATION: | | Dilated common bile duct. | | | | COMPARISON: | | None. | | | | FINDINGS: | | Seven spot views obtained shows cannulation of the common bile duct | | which is dilated. | | | | 2 minute(s)49 seconds | | | | IMPRESSION: | | Fluoroscopic assistance for ERCP. | | | | | | | | | | Signed by: Makeda Bucio Ishwar | | Sign Date/Time: 11/24/2019 2:59 PM | + + + +---------+ + + | Performing | Address | City/State/Zipcode | Phone Number | | Organization | | | | + +---------+ + + | [facility] | | | | + +---------+ + + ERCP (11/24/2019 1:46 PM PDT) + + | Specimen | + + | | + + + + + | Narrative | Performed At | + + + | [facility] | [facility] | | [facility] | [facility] | | CenterGastroenterology | | | Patient Name: Asiya Shepherd | | | Sh[place] Procedure Date: 11/24/2019 1:46 PMMRN: [id number] | | | of : | | | 1950 Note Status: FinalizedAttending MD: | | | CARLOS TORRES MD | | | | | | Procedure: ERCPIndications: | | | Bile duct stone(s)Patient Profile: This is a 69 | | | year old female with prior | | | cholecystectomy and now with cholangitis, improved | | | with IV ABX. MRCP with large CBD stone. Here for | | | ERCP.Referring MD: | | | RICHY MAGANA, MDMedicines: Monitored | | | Anesthesia CareComplications: No immediate | | | complications. | | | Procedure: Pre-Anesthesia Assessment: | | | - Prior to the procedure, a History and Physical was performed, and | | | patient medications and allergies were reviewed. The patient's | | | tolerance of previous anesthesia was also reviewed. The risks | | | and benefits of the procedure and the sedation options and | | | risks were discussed with the patient. All questions were | | | answered, and informed consent was obtained. Prior | | | Anticoagulants: The patient has taken no previous anticoagulant or | | | antiplatelet agents. ASA Grade Assessment: II - A patient with | | | mild systemic disease. After reviewing the risks and benefits, | | | the patient was deemed in satisfactory condition to undergo the | | | procedure. After informed consent was obtained including risks, | | | benefits and alternatives, the scope was passed under direct | | | vision. Throughout the procedure, the patient's blood pressure, | | | pulse, and oxygen saturations were monitored continuously. The | | | duodenoscope was introduced through the mouth, and advanced to | | | the duodenum and used to inject contrast into the bile duct. | | | The ERCP was accomplished without difficulty. The patient | | | tolerated the procedure well. 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 The | | | esophagus was successfully intubated under direct vision | | | without detailed examination of the pharynx, larynx, and | | | associated structures. The scope was passed through the upper | | | GI tract without discovering UGI findings. The ampulla appeared | | | normal. Using 20 mm [place] loaded with 0.035 inch | | | guidewire, the bile duct was cannulated on initial attempt. Contrast | | | was injected revealing the bile duct size of about 20 mm with a | | | very large distal filling defect. A generous biliary | | | sphincterotomy was performed without any immediate | | | complications. Balloon sphincteroplasty was also done with a | | | CRE balloon up to 13.5 mm. Once done, a 15 to 18 mm balloon was | | | then used to extract the stone. The stone came through without | | | difficulty. Further balloon sweep was done extracting no further | | | sludge or stone. Final occlusion cholangiogram revealed no | | | further evidence of filling defect. There was good drainage of | | | bile and contrast. The total fluoroscopy exposure time was 2 | | | minutes and 49 seconds. I interpreted radiographic images | | | including cholangiogram and/or pancreatogram during the | | | procedure. | | | Impression: | | | -Choledocholithiasis, status post biliary sphincterotomy, | | | sphincteroplasty and stone extractionRecommendation: - Patient | | | has a contact number available for emergencies. The signs and | | | symptoms of potential delayed complications were discussed with the | | | patient. Return to normal activities tomorrow. Written discharge | | | instructions were provided to the patient. - Watch for | | | pancreatitis, bleeding, perforation, and cholangitis. - Return | | | [facility]. - Advance diet as | | | tolerated. - Continue present medications. - Return to | | | referring physician as previously scheduled. | | | CARLOS TORRES MD11/24/2019 3:03:27 PMThis report | | | has been signed electronically. Note Initiated On: 11/24/2019 1:46 | | | PMNumber of Addenda: 0 [facility] | | |CARLOS TORRES MD | | |11/24/2019 3:03:27 PM | | |This report has been signed electronically. | | | | | |Note Initiated On: 11/24/2019 1:46 PM | | |Number of Addenda: 0 | | | | | | [facility] | | + + + + +---------+ + + | Performing | Address | City/State/Zipcode | Phone Number | | Organization | | | | + +---------+ + + | [facility] | | | | + +---------+ + + Magnesium (11/24/2019 5:48 AM PDT) + + + +--------- ----+ + | Component | Value | Ref Range | Performe d | Pathologist | | | | | At | Signature | + + + +--------- ----+ + | Magnesium | 1.7Comment: Performed | 1.7 - 2.4 mg/dL | [facility] | | | | by [facility] [address], | | [facility]CR[facility] | | | | [place] [address] | | HEART | | | |Performed by [facility] [address], [place] [address] | | MEDICAL | | | | | | CENTER | | | | | | LABORATO RY | | | | | | CERNER | | + + + +--------- ----+ + + + | Specimen | + + | Blood specimen | | (specimen) | + + + + + + + | Performing | Address | City/State/Zipcode | Phone Number | | Organization | | | | + + + + + | [facility] | [address] | [place] [address] | | | [facility] | | | | | LABORATORY [facility] | | | | + + + + + Comprehensive Metabolic Panel (11/24/2019 5:48 AM PDT) + + + + + + | Component | Value | Ref Range | Performed | Pathologist | | | | | At | Signature | + + + + + + | Na | 140 | 135 - 145 | [facility] | | | | | mmol/L | [facility] | | | | | | HEART | | | | | | MEDICAL | | | | | | CENTER | | | | | | LABORATORY | | | | | | C[facility] | | + + + + + + | K | 3.4 (L) | 3.5 - 5.0 | [facility] | | | | | mmol/L | [facility] | | | | | | HEART | | | | | | MEDICAL | | | | | | CENTER | | | | | | LABORATORY | | | | | | [facility] | | + + + + + + | Cl | 109 | 99 - 109 mmol/L | [facility] | | | | | | [facility] | | | | | | HEART | | | | | | MEDICAL | | | | | | CENTER | | | | | | LABORATORY | | | | | | [facility] | | + + + + + + | CO2 | 25 | 21 - 28 mmol/L | [facility] | | | | | | [facility] | | | | | | HEART | | | | | | MEDICAL | | | | | | CENTER | | | | | | LABORATORY | | | | | | [facility] | | + + + + + + | Calcium | 8.2 (L) | 8.5 - 10.2 | [facility] | | | | | mg/dL | [facility] | | | | | | HEART | | | | | | MEDICAL | | | | | | CENTER | | | | | | LABORATORY | | | | | | C[facility] | | + + + + + + | Anion Gap | 6 | 5 - 16 mmol/L | [facility] | | | | | | [facility] | | | | | | HEART | | | | | | MEDICAL | | | | | | CENTER | | | | | | LABORATORY | | | | | | C[facility] | | + + + + + + | Albumin | 2.4 (L) | 3.3 - 4.8 g/dL | [facility] | | | | | | [facility] | | | | | | HEART | | | | | | MEDICAL | | | | | | CENTER | | | | | | LABORATORY | | | | | | [facility] | | + + + + + + | BUN | 7 (L) | 8 - 25 mg/dL | [facility] | | | | | | [facility] | | | | | | HEART | | | | | | MEDICAL | | | | | | CENTER | | | | | | LABORATORY | | | | | | CERNER | | + + + + + + | Creatinine | 0.62 | 0.50 - 1.00 | [facility] | | | | | mg/dL | [facility] | | | | | | HEART | | | | | | MEDICAL | | | | | | CENTER | | | | | | LABORATORY | | | | | | [facility] | | + + + + + + | Glucose | 79 | 65 - 99 mg/dL | [facility] | | | | | | [facility] | | | | | | HEART | | | | | | MEDICAL | | | | | | CENTER | | | | | | LABORATORY | | | | | | C[facility]ER | | + + + + + + | Total | 6.6 | 6.1 - 7.8 g/dL | [facility] | | | Protein | | | [facility] | | | | | | HEART | | | | | | MEDICAL | | | | | | CENTER | | | | | | LABORATORY | | | | | | C[facility]ER | | + + + + + + | Alkaline | 438 (H) | 35 - 115 U/L | [facility] | | | Phosphatase | | | [facility]CR[facility] | | | | | | HEART | | | | | | MEDICAL | | | | | | CENTER | | | | | | LABORATORY | | | | | | [facility] | | + + + + + + | ALT | 14 | 10 - 65 U/L | [facility] | | | | | | [facility] | | | | | | HEART | | | | | | MEDICAL | | | | | | CENTER | | | | | | LABORATORY | | | | | | [facility] | | + + + + + + | AST | 33 | 10 - 45 U/L | [facility] | | | | | | [facility] | | | | | | HEART | | | | | | MEDICAL | | | | | | CENTER | | | | | | LABORATORY | | | | | | [facility] | | + + + + + + | Bilirubin | 1.3 (H) | 0.2 - 1.1 mg/dL | [facility] | | | Total | | | [facility] | | | | | | HEART | | | | | | MEDICAL | | | | | | CENTER | | | | | | LABORATORY | | | | | | [facility] | | + + + + + + | Estimated | 92Comment: eGFR<60 | >=90 | [facility] | | | GFR | consistent with impaired | mL/min/1.73m2 | [facility] | | | | kidney function.For | | HEART | | | | Americans, | | MEDICAL | | | | multiply the calculated | | CENTER | | | | GFR by 1.210Performed by | | LABORATORY | | | | [facility] [address], | | [place] | | | | [place] [address] | | | | + + + + + + + + | Specimen | + + | Blood specimen | | (specimen) | + + + + + + + | Performing | Address | City/State/Zipcode | Phone Number | | Organization | | | | + + + + + | [facility] | [address] | [place] [address] | | | [facility] | | | | | LABORATORY [place] | | | | + + + + + CBC with Differential (11/24/2019 5:48 AM PDT) + + + + + + | Component | Value | Ref Range | Performed | Pathologist | | | | | At | Signature | + + + + + + | WBC | 7.99 | 3.80 - 11.00 | [facility] | | | | | K/uL | [facility] | | | | | | HEART | | | | | | MEDICAL | | | | | | CENTER | | | | | | LABORATORY | | | | | | [facility] | | + + + + + + | RBC | 4.16 | 3.70 - 5.10 | [facility] | | | | | M/uL | [facility]CR[facility] | | | | | | HEART | | | | | | MEDICAL | | | | | | CENTER | | | | | | LABORATORY | | | | | | [facility] | | + + + + + + | Hemoglobin | 12.1 | 11.3 - 15.5 | [facility] | | | | | g/dL | [facility] | | | | | | HEART | | | | | | MEDICAL | | | | | | CENTER | | | | | | LABORATORY | | | | | | [facility] | | + + + + + + | Hct | 38.8 | 34.0 - 46.0 % | [facility] | | | | | | [facility]CR[facility] | | | | | | HEART | | | | | | MEDICAL | | | | | | CENTER | | | | | | LABORATORY | | | | | | [facility] | | + + + + + + | MCV | 93.3 | 80.0 - 100.0 fL | [facility] | | | | | | [facility]CR[facility] | | | | | | HEART | | | | | | MEDICAL | | | | | | CENTER | | | | | | LABORATORY | | | | | | [facility] | | + + + + + + | MCH | 29.1 | 27.0 - 34.0 pg | [facility] | | | | | | [facility]CR[facility] | | | | | | HEART | | | | | | MEDICAL | | | | | | CENTER | | | | | | LABORATORY | | | | | | C[facility] | | + + + + + + | MCHC | 31.2 (L) | 32.0 - 35.5 | [facility] | | | | | g/dL | [facility]CR[facility] | | | | | | HEART | | | | | | MEDICAL | | | | | | CENTER | | | | | | LABORATORY | | | | | | [facility] | | + + + + + + | RDW-CV | 14.5 | 11.0 - 15.5 % | [facility] | | | | | | [facility]CR[facility] | | | | | | HEART | | | | | | MEDICAL | | | | | | CENTER | | | | | | LABORATORY | | | | | | [facility] | | + + + + + + | Platelet | 475 (H) | 150 - 400 K/uL | [facility] | | | Count | | | SACRED | | | | | | HEART | | | | | | MEDICAL | | | | | | CENTER | | | | | | LABORATORY | | | | | | [facility] | | + + + + + + | MPV | 9.5 | 9.3 - 12.7 fL | [facility] | | | | | | [facility]CR[facility] | | | | | | HEART | | | | | | MEDICAL | | | | | | CENTER | | | | | | LABORATORY | | | | | | [facility] | | + + + + + + | % | 72.1 | 40.0 - 75.0 % | [facility] | | | Neutrophils | | | SACRED | | | | | | HEART | | | | | | MEDICAL | | | | | | CENTER | | | | | | LABORATORY | | | | | | [facility] | | + + + + + + | % | 17.9 | 15.0 - 48.0 % | [facility] | | | Lymphocytes | | | SACRED | | | | | | HEART | | | | | | MEDICAL | | | | | | CENTER | | | | | | LABORATORY | | | | | | [facility] | | + + + + + + | % Monocytes | 5.5 | 0.0 - 12.0 % | [facility] | | | | | | SACRED | | | | | | HEART | | | | | | MEDICAL | | | | | | CENTER | | | | | | LABORATORY | | | | | | [facility] | | + + + + + + | % | 2.3 | 0.0 - 7.0 % | [facility] | | | Eosinophils | | | SACRED | | | | | | HEART | | | | | | MEDICAL | | | | | | CENTER | | | | | | LABORATORY | | | | | | [facility] | | + + + + + + | % Basophils | 0.9 | 0.0 - 2.0 % | [facility] | | | | | | [facility]CR[facility] | | | | | | HEART | | | | | | MEDICAL | | | | | | CENTER | | | | | | LABORATORY | | | | | | [facility] | | + + + + + + | % Immature | 1.3 (H)Comment: | 0.0 - 1.0 % | [facility] | | | Granulocyte | Immature granulocytes | | SACRED | | | s | are left-shifted | | HEART | | | | granulocytes and do not | | MEDICAL | | | | equal blasts. They are | | CENTER | | | | composed of | | LABORATORY | | | | metamyelocytes, | | C[facility] | | | | myelocytes, and | | | | | | promyelocytes. Their | | | | | | presence can be seen in | | | | | | infection, inflammation, | | | | | | certain medication's | | | | | | effect, or other bone | | | | | | marrow stimuli. | | | | | | Occasionally, | | | | | | persistent increase in | | | | | | immature granulocytes | | | | | | may be part of myeloid | | | | | | neoplastic process. | | | | | | Correlation with | | | | | | clinical findings is | | | | | | recommended for complete | | | | | | interpretation of this | | | | | | parameter. Please also | | | | | | note that peripheral | | | | | | blood with immature | | | | | | granulocytes >5% will be | | | | | | manually reviewed by | | | | | | lab personnel and/or | | | | | | pathologists. | | | | + + + + + + | Absolute | 5.76 | 1.90 - 7.40 | [facility] | | | Neutrophils | | K/uL | SACRED | | | | | | HEART | | | | | | MEDICAL | | | | | | CENTER | | | | | | LABORATORY | | | | | | [facility] | | + + + + + + | Absolute | 1.43 | 1.00 - 3.90 | [facility] | | | Lymphocytes | | K/uL | SACRED | | | | | | HEART | | | | | | MEDICAL | | | | | | CENTER | | | | | | LABORATORY | | | | | | [facility] | | + + + + + + | Absolute | 0.44 | 0.00 - 0.80 | [facility] | | | Monocytes | | K/uL | [facility]CR[facility] | | | | | | HEART | | | | | | MEDICAL | | | | | | CENTER | | | | | | LABORATORY | | | | | | [place] | | + + + + + + | Absolute | 0.18 | 0.00 - 0.50 | [facility] | | | Eosinophils | | K/uL | [facility]CR[facility] | | | | | | HEART | | | | | | MEDICAL | | | | | | CENTER | | | | | | LABORATORY | | | | | | [facility] | | + + + + + + | Absolute | 0.07 | 0.00 - 0.10 | [facility] | | | Basophils | | K/uL | SACRED | | | | | | HEART | | | | | | MEDICAL | | | | | | CENTER | | | | | | LABORATORY | | | | | | [facility] | | + + + + + + | Absolute | 0.10 (H)Comment: | 0.00 - 0.03 | [facility] | | | Immature | Performed by [facility] [address] | K/uL | SACRED | | | Granulocyte | [address] [place] | | HEART | | | s | [phone] | | MEDICAL | | | | | | CENTER | | | | | | LABORATORY | | | | | | CERNER | | + + + + + + + + | Specimen | + + | Blood specimen | | (specimen) | + + + + + + + | Performing | Address | City/State/Zipcode | Phone Number | | Organization | | | | + + + + + | [facility] | [address] | [place], [place] | | | [facility] | | | | | LABORATORY [place] | | | | + + + + + Magnesium (11/23/2019 9:40 PM PDT) + + + +--------- ----+ + | Component | Value | Ref Range | Performe d | Pathologist | | | | | At | Signature | + + + +--------- ----+ + | Magnesium | 1.8Comment: Performed | 1.7 - 2.4 mg/dL | [facility] | | | | by [facility] [address], | | SACRED | | | | [place] | | HEART | | | |Performed by [facility] [address], [place] | | MEDICAL | | | | | | CENTER | | | | | | [facility] | | | | | | [facility]ER | | + + + +--------- ----+ + + + | Specimen | + + | Blood specimen | | (specimen) | + + + + + + + | Performing | Address | City/State/Zipcode | Phone Number | | Organization | | | | + + + + + | [facility] | [address] | [place] [address] | | | [facility] | | | | | LABORATORY [place] | | | | + + + + + Comprehensive Metabolic Panel (11/23/2019 9:40 PM PDT) + + + + + + | Component | Value | Ref Range | Performed | Pathologist | | | | | At | Signature | + + + + + + | Na | 139 | 135 - 145 | [facility] | | | | | mmol/L | SACRED | | | | | | HEART | | | | | | MEDICAL | | | | | | CENTER | | | | | | LABORATORY | | | | | | [facility] | | + + + + + + | K | 3.8 | 3.5 - 5.0 | [facility] | | | | | mmol/L | SACRED | | | | | | HEART | | | | | | MEDICAL | | | | | | CENTER | | | | | | LABORATORY | | | | | | [place] | | + + + + + + | Cl | 108 | 99 - 109 mmol/L | [facility] | | | | | | SACR[facility] | | | | | | HEART | | | | | | MEDICAL | | | | | | CENTER | | | | | | LABORATORY | | | | | | [place] | | + + + + + + | CO2 | 26 | 21 - 28 mmol/L | [facility] | | | | | | SACR[facility] | | | | | | HEART | | | | | | MEDICAL | | | | | | CENTER | | | | | | LABORATORY | | | | | | [place] | | + + + + + + | Calcium | 8.3 (L) | 8.5 - 10.2 | [facility] | | | | | mg/dL | SACRED | | | | | | HEART | | | | | | MEDICAL | | | | | | CENTER | | | | | | LABORATORY | | | | | | [place] | | + + + + + + | Anion Gap | 5 | 5 - 16 mmol/L | [facility] | | | | | | SACRED | | | | | | HEART | | | | | | MEDICAL | | | | | | CENTER | | | | | | LABORATORY | | | | | | [place] | | + + + + + + | Albumin | 2.5 (L) | 3.3 - 4.8 g/dL | [facility] | | | | | | SACRED | | | | | | HEART | | | | | | MEDICAL | | | | | | CENTER | | | | | | LABORATORY | | | | | | [place] | | + + + + + + | BUN | 9 | 8 - 25 mg/dL | [facility] | | | | | | SACRED | | | | | | HEART | | | | | | MEDICAL | | | | | | CENTER | | | | | | LABORATORY | | | | | | [facility] | | + + + + + + | Creatinine | 0.62 | 0.50 - 1.00 | [facility] | | | | | mg/dL | SACRED | | | | | | HEART | | | | | | MEDICAL | | | | | | CENTER | | | | | | LABORATORY | | | | | | [facility] | | + + + + + + | Glucose | 86 | 65 - 99 mg/dL | [facility] | | | | | | SACRED | | | | | | HEART | | | | | | MEDICAL | | | | | | CENTER | | | | | | LABORATORY | | | | | | [place] | | + + + + + + | Total | 6.3 | 6.1 - 7.8 g/dL | [facility] | | | Protein | | | SACRED | | | | | | HEART | | | | | | MEDICAL | | | | | | CENTER | | | | | | LABORATORY | | | | | | [place] | | + + + + + + | Alkaline | 349 (H) | 35 - 115 U/L | [facility] | | | Phosphatase | | | SACRED | | | | | | HEART | | | | | | MEDICAL | | | | | | CENTER | | | | | | LABORATORY | | | | | | [place] | | + + + + + + | ALT | 15 | 10 - 65 U/L | [facility] | | | | | | SACRED | | | | | | HEART | | | | | | MEDICAL | | | | | | CENTER | | | | | | LABORATORY | | | | | | [place] | | + + + + + + | AST | 26 | 10 - 45 U/L | [facility] | | | | | | SACRED | | | | | | HEART | | | | | | MEDICAL | | | | | | CENTER | | | | | | LABORATORY | | | | | | [facility] | | + + + + + + | Bilirubin | 1.2 (H) | 0.2 - 1.1 mg/dL | [facility] | | | Total | | | SACRED | | | | | | HEART | | | | | | MEDICAL | | | | | | CENTER | | | | | | LABORATORY | | | | | | [place] | | + + + + + + | Estimated | 92Comment: eGFR<60 | >=90 | [facility] | | | GFR | consistent with impaired | mL/min/1.73m2 | SACRED | | | | kidney function.For | | HEART | | | | Americans, | | MEDICAL | | | | multiply the calculated | | CENTER | | | | GFR by 1.210Performed by | | LABORATORY | | | | [facility] [address], | | [place] | | | | [place] [address] | | | | + + + + + + + + | Specimen | + + | Blood specimen | | (specimen) | + + + + + + + | Performing | Address | City/State/Zipcode | Phone Number | | Organization | | | | + + + + + | [facility] | [address] | [place] [address] | | | [facility] | | | | | LABORATORY [place] | | | | + + + + + CBC no Differential (11/23/2019 9:40 PM PDT) + + + +-------- -----+ + | Component | Value | Ref Range | Perform ed | Pathologist | | | | | At | Signature | + + + +-------- -----+ + | WBC | 9.32 | 3.80 - 11.00 | [facility] | | | | | K/uL | SACRED | | | | | | HEART | | | | | | MEDICAL | | | | | | CENTER | | | | | | LABORAT ORY | | | | | | [facility] | | + + + +-------- -----+ + | RBC | 4.03 | 3.70 - 5.10 | [facility] | | | | | M/uL | SACRED | | | | | | HEART | | | | | | MEDICAL | | | | | | CENTER | | | | | | LABORAT ORY | | | | | | [facility] | | + + + +-------- -----+ + | Hemoglobin | 11.9 | 11.3 - 15.5 | [facility] | | | | | g/dL | SA[facility] | [facility] | | [facility] | | | [facility] | [facility] | | | | | | [facility] | | | | | | [facility] | | + + + +-------- -----+ + | Hct | 37.0 | 34.0 - 46.0 % | [facility] | | | | [facility] | | [facility] | | | [facility] | | | | | | [facility] | | | | | | [facility] | | + + + +-------- -----+ + | MCV | 91.8 | 80.0 - 100.0 fL | [facility] | | | | [facility] | | [facility] | | | [facility] | | | | | | [facility] | | | | | | [facility] | | + + + +-------- -----+ + | MCH | 29.5 | 27.0 - 34.0 pg | [facility] | | | | [facility] | | [facility] | | | [facility] | [facility] | | | | | | [facility] | | | | | | [facility] | | + + + +-------- -----+ + | MCHC | 32.2 | 32.0 - 35.5 | [facility] | | | | | g/dL | [facility] | [facility] | | [facility] | | | [facility] | | | | | | [facility] | | | | | | [facility] | | + + + +-------- -----+ + | RDW-CV | 14.6 | 11.0 - 15.5 % | [facility] | | | | | [facility] | | | | | | [facility] | | | | | | [facility] | | | | | | [facility] | | | | | | [facility] | | + + + +-------- -----+ + | Platelet | 416 (H) | 150 - 400 K/uL | [facility] | | | Count | | | [facility] | | | | | [facility] | | | | | | [facility] | | | | | | [facility] | | | | | | [facility] | | | | | | [facility] | | + + + +-------- -----+ + | MPV | 9.4Comment: Performed | 9.3 - 12.7 fL | [facility] | | | | by [facility] [address], | | [facility] | | | | [place] [address] | | HEART | | | |Performed by [facility] [address], [place], [place] | | MEDICAL | | | | | | CENTER | | | | | | LABORAT [facility] | | | | | | [facility] | | + + + +-------- -----+ + + + | Specimen | + + | Blood specimen | | (specimen) | + + + + + + + | Performing | Address | City/State/Zipcode | Phone Number | | Organization | | | | + + + + + | [facility] | [address] | [place] [address] | | | [facility] | | | | | [facility] | | | | + + + + + Lactic Acid (11/23/2019 9:40 PM PDT) + + + + + + | Component | Value | Ref Range | Performed | Pathologist | | | | | At | Signature | + + + + + + | Lactate, | 0.8Comment: Performed | 0.5 - 2.2 | [facility] | | | Venous | by [facility] [address], | mmol/L | SACRED | | | | [place] [address] | | HEART | | | |Performed by [facility] [address], [place] [address] | | MEDICAL | | | | | | CENTER | | | | | | LABORATORY | | | | | | CERNER | | + + + + + + + + | Specimen | + + | Blood specimen | | (specimen) | + + + + + + + | Performing | Address | City/State/Zipcode | Phone Number | | Organization | | | | + + + + + | IHSAN DICKERSON | [address] | [place] [address] | | | [facility] | | | | | LABORATORY [place] | | | | + + + + + LABS - EXTERNAL SCAN (11/20/2019 12:00 AM PDT) + + + | Narrative | Performed At | + + + | Ordered by an | | | unspecified provider. | | + + + documented in this encounter Visit Diagnoses + + | Diagnosis | + + | Cholangitis - Primary | + + | H/O left nephrectomy | + + | Ovarian mass Unspecified noninflammatory disorder of ovary, fallopian tube, and broad | | ligament | + + | Tinea faciale Dermatophytosis of other specified sites | + + | Choledocholithiasis Calculus of bile duct without mention of cholecystitis or | | obstruction | + + | Obesity Obesity, unspecified | + + | Hyperbilirubinemia Disorders of bilirubin excretion | + + | Hypoalbuminemia Other disorders of plasma protein metabolism | + + documented in this encounter Admitting Diagnoses + + | Diagnosis | + + | Cholangitis | + + | Choledocholithiasis Calculus of bile duct without mention of cholecystitis or | | obstruction | + + documented in this encounter Administered Medications + +--------+ +--------+------+------+ | Medication Order | MAR | Action | Dose | Rate | Site | | | Action | Date | | | | + +--------+ +--------+------+------+ | acetaminophen (TYLENOL) tablet | Given | 11/25/19 | 650 mg | | | | 650 mg 650 mg, Oral, EVERY 6 | | 20 6:15 | | | | | HOURS (4 times per day), First | | AM PDT | | | | | dose (after last modification) on | | | | | | | Kailyn 11/23/19 at 1800 | | | | | | + +--------+ +--------+------+------+ +-------+ +--------+---+---+ | Given | 11/24/19 | 650 mg | | | | | 20 11:51 | | | | | | PM PDT | | | | +-------+ +--------+---+---+ | Given | 11/24/19 | 650 mg | | | | | 20 5:09 | | | | | | PM PDT | | | | +-------+ +--------+---+---+ +---+---+ | | | +---+---+ + +---------+ +-----+ +---+ | magnesium sulfate 2 g/50 mL | New Bag | 11/24/19 | 2 g | 25 mL/hr | | | IVPB 2 g 2 g, Intravenous, | | 20 8:04 | | | | | Administer over 120 Minutes, | | AM PDT | | | | | ONCE, Wed11/24/19 at 0800, For 1 | | | | | | | dose, Maximum recommended | | | | | | | infusion rate = 1 gram/hour., | | | | | | + +---------+ +-----+ +---+ +---+---+ | | | +---+---+ + +-------+ +---+---+---+ | miconazole (MICATIN) 2% cream | Given | 11/25/19 | | | | | Topical, 2 TIMES DAILY, First | | 20 8:28 | | | | | dose on [facility] 11/23/19 at 2100, Apply | | AM PDT | | | | | to: Other (Comment), Other | | | | | | | location: face over lesion | | | | | | + +-------+ +---+---+---+ +-------+ +---+---+---+ | Given | 11/24/19 | | | | | | 20 7:58 | | | | | | PM PDT | | | | +-------+ +---+---+---+ | Given | 11/24/19 | | | | | | 20 8:11 | | | | | | AM PDT | | | | +-------+ +---+---+---+ +---+---+ | | | +---+---+ + +---------+ +---------+ +---+ | piperacillin-tazobactam (ZOSYN) | New Bag | 11/25/19 | 3.375 g | 25 mL/hr | | | 3.375 g in sodium chloride 0.9% | | 20 6:15 | | | | | 100 mL IVPB 3.375 g, | | AM PDT | | | | | Intravenous, Administer over 4 | | | | | | | Hours, EVERY 8 HOURS INTERVAL, | | | | | | | First dose on [facility] 11/23/19 at 2245, | | | | | | | Extended-Infusion Zosyn | | | | | | | Protocol: infuse over 4 hours | | | | | | | when maintenance dose has a | | | | | | | frequency of Q8H (or Q12H for | | | | | | | renal dose adjustment). Activate | | | | | | | system and mix before use., | | | | | | | Indications: Biliary Tract | | | | | | | Infection | | | | | | + +---------+ +---------+ +---+ +---------+ +---------+ +---+ | New Bag | 11/24/19 | 3.375 g | 25 mL/hr | | | | 20 10:23 | | | | | | PM PDT | | | | +---------+ +---------+ +---+ | New Bag | 11/24/19 | 3.375 g | 25 mL/hr | | | | 20 4:00 | | | | | | PM PDT | | | | +---------+ +---------+ +---+ +---+---+ | | | +---+---+ + +-------+ +--------+---+---+ | potassium chloride (Klor-Con | Given | 11/24/19 | 40 mEq | | | | M20) ER tablet 40 mEq 40 mEq, | | 20 3:55 | | | | | Oral, ONCE, Wed11/24/19 at 1600, | | PM PDT | | | | | For 1 dose, After ERCP, | | | | | | + +-------+ +--------+---+---+ +---+---+ | | | +---+---+ + +-------+ +--------+---+---+ | senna (SENOKOT) tablet 8.6 mg | Given | 11/24/19 | 8.6 mg | | | | 8.6 mg, Oral, 2 TIMES DAILY PRN, | | 20 12:43 | | | | | Constipation, Starting Kailyn 11/23/19 | | AM PDT | | | | | at 1640, If docusate ineffective | | | | | | | or not ordered., | | | | | | + +-------+ +--------+---+---+ +---+---+ | | | +---+---+ documented in this encounter
--- OUTSIDE RECORDS SUMMARY | ~2020-02-25 | XMS | Encounter Summary ---
Demographics + + + | Address | [address] | | | [place] [address] | + + + | Home Phone | | + + + | Preferred Language | Unknown | + + + | Marital Status | | + + + | Rastafari Affiliation | Unknown | + + + | Race | Unknown | + + + | Ethnic Group | Unknown | + + + Author + + + | Author | [facility] | | | and [place] | + + + | Organization | [facility] | | | and [place] | + + + | Address | Unknown | + + + | Phone | Unavailable | + + + Support + + + + + | Name | Relationship | Address | Phone | + + + + + | Malachi Shepherd | ECON | [address] | | | | | [place] | | | | | [address] | | + + + + + Care Team Providers + +------+ + | Care Reading Teacher Name | Role | Phone | + [...] +--------+--------+ + + + + Encounter Details +--------+---------+ + + + | Date | Type | Department | Care Team | Description | +--------+---------+ + + + | 11/23/ | Surgery | [facility] | Carlos Torres, | ENDOSCOPIC | | 2019 | | [facility] | MD [address] | RETROGRADE | | | | INTRA OP [address] | [address] [place], | [place] | | | | Ave [place] | [place] [address] | | | | | [address] | [phone] | | | | | [phone] | | | +--------+---------+ + + + Social History + +-------+ [...] drinking Oct | | | | | 2018 prior was | | | | | [...] + + + | Blood Pressure | 137/70 | 11/24/2019 3:04 PM | | | | | PDT | | + + + + + | Pulse | 70 | 11/24/2019 3:04 PM | | | | | PDT | | + + + + + | Temperature | 36.1 C (96.9 F) | 11/24/2019 3:04 PM | | | | | PDT | | + + + + + | Respiratory Rate | 18 | 11/24/2019 3:04 PM | | | | | PDT | | + + + + + | Oxygen Saturation | 95% | 11/24/2019 3:04 PM | | | | | PDT [...] might be diff erent from the original. [facility] [place] Asiya Vinay Shepherd : 1950 PCP: Junior Yates Attending: [...] lab and imaging results: Recent Labs Lab 11/25/1951211/24/19 0548 11/23/19 2140 WBC 6.74 7.99 9.32 HGB 13.5 12.1 11.9 PLT 512* 475* 416* Recent Labs Lab 11/25/1951211/24/19 0548 11/23/19 2140 ALT 19 14 15 AST 35 33 26 ALKPHOS 506* 438* 349* BILITOT 1.2* 1.3* 1.2* Recent Labs Lab 11/25/1951211/24/19 0548 11/23/19 2140 NA 139 140 139 [...] presents as a transfer from [facility] for an ERCP due to concerns for acute cholangitis. Hospital Course: Patient was transferred from [facility] due to the need for ERCP based on bilir ubin of 4.2, WBC 17k, and RUQ pain with MRCP concerning for choledocholithiasis with cholang itis. Blood cultures x2 were drawn at [facility]. She was continued on Zosyn for [...] Also of note, 1/2 blood cultures from [facility] showed G+ rods. This was deemed [...] Team Discharge References/Attachments Dietary Fat, Facts About (Yemeni) Gallstones, Discharge Instructions (Yemeni) Cooking Tips, Low-Fat Tips (Yemeni) Follow Up: Junior Yates [address] [place] [address] Schedule an appointment as soon as possible [...] Min MD Attending Physician Family [facility] [place] documented in this encounter Discharge Instructions Instructions [...] through Care Everywhere.Dietary Fat, Fa cts About (Yemeni)Gallstones, Discharge Instructions (Yemeni)Cooking Tips, Low-Fat Tips (E nglish)documented in this [...] ntinue to attempt to F/U with patient. ARGELIA Quiroz, RN, WOCN Wound and Ostomy Department P: [phone] F: [phone]' rCatia christine MD - 11/24/2019 7:47 AM PDTFormatting of this note might be different from the jil ginal. [facility] [place] Shepherd : [...] history who presents as a transfer from [place] for abdominal pain who was found to have a common bile duct stone and requires ERCP. Acute cholangitis CBD dilation with elevated leukocytosis of 22k likely 2/2 to choledocholithiasis with prior cholecystectomy. She is now status post MRCP which showed 29 mm Hepatic bile duct amd 18mm CBD w/ evidence of sludge ball vs stone in the CBD. Currenly on Zosyn and transferred to [facility] for ERCP with GI. Appreciate their recommendations. Continue Zosyn IV N.p.o. w/ plan for ERCP today at 3pm with GI. - Fluid bolus as needed for MAPs >65 - Follow up urinary and blood cultures at outside hospital for severe infection. Ovarian Mass Concerning for ovarian cancer initially seen on CT, MRI and pelvic ultrasound imaging at [facility]. Patient does not wish to pursue intervention [...] MD - 11/24/2019 10:46 AM PDTTeaching Physician's Violeta andersen, Rounding: Date of Service: 11/24/19 Primary diagnosis [...] Signed by: Enrique Triana MD Attending Physician [facility] [place] documented in this encounter H&P Notes Vikash Mcmullen, DO - 11/23/2019 2:26 PM PDT [facility] [place] Asiya Shepherd : 1950 PCP: Junior Yates Admitted: 11/23/2019 4:12 PM Attending: Steven Siegel MD Admission dx: Cholangitis Chief Complaint: Asiya Shepherd is a 69 y.o. female who presents as a transfer from [facility] ([facility]) for abdominal pain who was found to have a stone in her bile du ct. Information source: patient History of Present Illness: Asiya Shepherd is a 69 yr old female with hx of multiple abdominal surgeries including (L n ephrectomy 2006, loop ileostomy following fistula development, hernia repair and removal due to infection, cholecystectomy, and left colectomy) who presents as a transfer from [facility] for an ERCP due to concerns for acute cholangitis. Patient was admitted previously to [facility] following progressive 2-3 weeks of non-radiating RUQ abdominal pain described as sharp, constant for 15-30 minutes occurring 1-2 hour after meals. Other associated symptoms include chills, diaphoresis and decreased appetite. She denies She denies any nausea, vomiting, diarrhea, constipation, fever, diarrhea, or urinary sympto ms. Brief hospital course at [facility] per chart review. Patient was seen in [...] size of the obstruction di scussion with table games floor supervisor at [place] regarding ERCP for relief and admission wit hospitalist team. Patient was transferred via ambulance [...] History Social History Narrative Patient lives in [place] [place] with her Stuart who is POA. 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 Medications Medications Prior to Admission Medication [...] female who presents as a transfer from [place] for abdo amandeep pain who was found to have a common bile duct stone and requires ERCP. Acute cholangitis Assessment: CBD dilation with elevated leukocytosis of 22k likely 2/2 to choledocholithiasi s with prior cholecystectomy. She is now status post MRCP which showed 29 mm bile duct stone . Mariannely on Zosyn and transferred to [place] for ERCP with GI. Appreciate their recom [...] MRI and pelvic ultrasound debbie carson at [facility]'s patient does not wish to pursue additional [...] and is documented here: Full Code Ric DO Benedict 11/24/2019 1:54 AM This admission was discussed with Dr. Steven Siegel MD. Associated attestation - Steven Siegel MD - 11/24/2019 9:06 AM PDTDuring the init [facility] visit, I reviewed the resident's note [...] has arrived for transportation. PO abx at [facility] pharmacy. Adequate for discharge. Electronically signed by: [...] physician. Sandra Randhawa MD Gastroenterology & Hepatology [facility] [phone] lan of Care - Jessica Woo RN - 11/25/2019 3:12 AM PDTFormatting of this note might be different from the o riginal. Nursing Handoff Note Room # 536/536-01 Isolation: None Code Status: Full Code Item for client relationship executive Comments Shift Summary: Patient has denied pain. [...] (11/23/191636) Reason for Communication: Review case(hypertensive ) (11/23/191636) Vitals: 11/24/19 1445 11/24/19 1504 11/24/19 1901 [...] wound from previous nephrostomy tube. Room # [facility]536-01 Name: Asiya Shepherd [id number] Code Status: Full Code Isolation: None Dx/Tx: [...] [x] No Therapy involved?: C-SSRS Monitoring Requirements [facility] Suicide Policy [facility] Suicide Risk/Telesitter Screening Utilizing this rating [...] report has been signed electronically. lan of [facility] - Lana Erwin RN - 11/24/2019 12:55 PM PDTFor matting of this note might be different from the original. Nursing Handoff Note Room # 536/536-01 None Admitting: Enrique Triana MD Attending: Enrique Triana MD Item for client relationship executive Comments Shift Summary Shift note: to ENDO [...] void Active Gtt [x] IVF / [] IV/HEALTHCARE ADMINISTRATIVE ASSISTANT / [] Medlocked [] Peripheral IV / [...] [] Other Hospital Fall C-SSRS Monitoring Requirements [facility] Suicide Policy [facility] Suicide Risk/Telesitter Screening Utilizing this rating [...] for: POCGLU No data found. lan of [facility] - B Rhoda fernández RN - 11/24/2019 4:57 AM PDTA/O. Wears glasses. Pain well controlled with tylenol scheduled. PIV zosyn infusing. Patent. IV started in [facility]. NPO for ERCP today at 1500. Left flank non-healing wound. Gauze dressing CDI. Anti-fungal applied to face. Pale colored stools. She had a small loose stool this shift. Voiding adequately in toilet. Unable to measure due to riser. Urine is yellow. SBA with FWW. Electronically signed by: Rhoda Garcia RN 11/24/2019 5:00 AM lan of [facility] - Milena Lopez RN - 11/23/2019 10:45 PM PDT-Direct admit from [place] -Alert and oriented -Denies pain/nausea -Left flank chronic wound cleansed and covered w/ gauze -Up w/ SBA and FWW to bathroom -Voiding and had BM tonight -PIV x 1 w/ IV abx infusing -Clear liquids, NPO at midnight lan of [facility] - Kim Scott RN - 11/23/2019 4:49 PM PDTAdmission screen completed by Ana Maria [place] Report handoff given to [address] [place] [address] TALIA Rodgers RN has completed admission flow [...] | + +--------+ + + + | OR ERCP DX | Routin | 11/24/2019 | [...] | | PER | | | . OK | | | | | | ERICA [...] Performed | 1.7 - 2.4 mg/dL | [facility] | | | | by [facility] [address], | | SACRED | | | | [place] [address] | | HEART | | | |Performed by [facility] [address], [place] [address] | | MEDICAL | | | | [...] + + + + + | RICHARDSONDOUG[facility]ristina DICKERSON | [address] | [place] [address] | | | [facility] | | | | | LABORATORY [...] | | LABORATORY | | | | [facility] [address], | | CERNER | | | | [place] [address] | | | | + + + + + + + + | Specimen | + + | Blood specimen | | (specimen) | + + + + + + + | Performing | Address | City/State/Zipcode | Phone Number | | Organization | | | | + + + + + | IHSAN DICKERSON | [address] | [place] [address] | | | [facility] | | | | | [place] | | | | + + + [...] [facility] | | | | Performed by [facility] [address] | | SACRED | | | | [address] [place] | | HEART | | | | [address] | | MEDICAL | | | | [...] + + | IHSAN DICKERSON | [address] | [place] [address] | | | [facility] | | | | | [place] | | | | + + + + + [place] ERCP Biliary Only (11/24/2019 2:29 PM PDT) + + | Specimen | + + | | + + + + + | Impressions | Performed At | + + + | Fluoroscopic assistance for ERCP. Signed by: Rupinder | [facility] | | Heraclio Ashford Sign Date/Time: 11/24/2019 2:59 PM | | + [...] Note | + + | Leno Arriaga In 11/24/2019 7:37 PM PDT | | ERCP [...] Performed At | + + + | [place] | [place] | | [facility] | PROVATION | | CenterGastroenterology | | | Patient Name: Asiya Shepherd | | | Shillal Procedure Date: 11/24/2019 1:46 PMMRN: [id number] | | | of : | | [...] | | | | | Findings: A geothermal plant manager film of the abdomen was obtained. The | | | esophagus was successfully intubated under direct vision | | | without detailed examination of the pharynx, larynx, and | | | associated structures. The scope was passed through the upper | | | GI tract without discovering UGI findings. The ampulla appeared | | | normal. Using 20 mm [place] loaded with 0.035 inch | | | [...] | | | PMNumber of Addenda: 0 [facility] | | |CARLOS TORRES MD | | |11/24/2019 3:03:27 PM | | |This report has been signed electronically. | | | | | |Note Initiated On: 11/24/2019 1:46 PM | | |Number of Addenda: 0 | | | | | | [facility] | | + + + + +---------+ + + | Performing | Address | City/State/Zipcode | Phone Number | | Organization | | | | + +---------+ + + | [place] [facility] | | | | + +---------+ + + Magnesium (11/24/2019 5:48 AM PDT) + + + +--------- ----+ + | Component | Value | Ref Range | Performe d | Pathologist | | | | | At | Signature | + + + +--------- ----+ + | Magnesium | 1.7Comment: Performed | 1.7 - 2.4 mg/dL | [facility] | | | | by [facility] [address], | | SACRED | | | | [place] [address] | | HEART | | | |Performed by [facility] [address], [place] [address] | | MEDICAL | | | | [...] | + + + + + | [facility] | [address] | [place] [address] | | | HEART [facility] | | | | | LABORATORY [...] | | LABORATORY | | | | [facility] [address], | | CERNER | | | | [place] [address] | | | | + + + + + + + + | Specimen | + + | Blood specimen | | (specimen) | + + + + + + + | Performing | Address | City/State/Zipcode | Phone Number | | Organization | | | | + + + + + | IHSAN DICKERSON | [address] | [place] [address] | | | [facility] | | | | | LABORATORY [...] | | | Immature | Performed by [facility] [address] | K/uL | SACRED | | | Granulocyte | [address], [place] | | HEART | | | s | [phone] | | MEDICAL | | | | [...] + + | IHSAN DICKERSON | [address] | [place] [address] | | | HEART [facility] | | | | | LABORATORY [place] [...] Performed | 1.7 - 2.4 mg/dL | [facility] | | | | by [facility] [address], | | SACRED | | | | [place] [address] | | HEART | | | |Performed by [facility] [address], [place] [address] | | MEDICAL | | | | [...] + + + + + | RICHARDSONDOUGKristina DICKERSON | [address] | [place] [address] | | | [facility] | | | | | LABORATORY [...] | | LABORATORY | | | | [facility] [address], | | CERNER | | | | [place] [address] | | | | + + + + + + + + | Specimen | + + | Blood specimen | | (specimen) | + + + + + + + | Performing | Address | City/State/Zipcode | Phone Number | | Organization | | | | + + + + + | IHSAN DICKERSON | [address] | [place] [address] | | | [facility] | | | | | [place] | | | | + + + [...] [facility] | | | | by [facility] [address], | | SACRED | | | | [place] [address] | | HEART | | | |Performed by [facility] [address], [place] [address] | | MEDICAL | | | | [...] + + | IHSAN DICKERSON | [address] | [place] [address] | | | [facility] | | | | | LABORATORY [...] [facility] | | | Venous | by [facility] [address], | mmol/L | SACRED | | | | [place] [address] | | HEART | | | |Performed by [facility] [address], [place] [address] | | MEDICAL | | | | [...] + + | IHSAN DICKERSON | [address] | [place] [address] | | | [facility] | | | | | [facility] [place] | | | | + + + + + LABS - EXTERNAL SCAN (11/20/2019 12:00 AM PDT) + + + | Narrative | Performed At | + + + | Ordered by an | | | unspecified provider. | | + + + documented in this encounter Visit Diagnoses + + | Diagnosis | + + | Stones common duct Calculus of bile duct without mention of [...] | | | | | | | [facility] 11/23/19 at 1800 | | | | [...] | | | | | dose on [facility] 11/23/19 at 2100, Apply | | AM [...] | | | | First dose on [facility] 11/23/19 at 2245, | | | | [...] | | | | | Constipation, Starting [facility] 11/23/19 | | AM PDT | | | | | at 1640, If docusate ineffective | | | | | | | or not ordered., | | | | | | + +-------+ +--------+---+---+ +---+---+ | | | +---+---+ documented in this encounter
--- NOTE | 2020-02-26 07:41 | EKG ---
[facility] [address] [facility] [place], [place] [address] Signed Sinus tachycardia Otherwise normal ECG No previous ECGs available Confirmed by CRISTIAN DODGE MD ([id number]) on 02/26/2020 7:41:00 AM Electronically Signed By: CRISTIAN DODGE MD 02/26/20 0741 PATIENT NAME: SVEN STAPLES CHELITAMARCELO Electrocardiogram DATE OF : [birth year] PHYSICIAN: CRISTIAN DODGE MD REPORT #: [id number] REPORT IS CONFIDENTIAL AND NOT TO BE RELEASED WITHOUT AUTHORIZATION
== END ==
LOC: ED 18:36
DX: S72.402A Unspecified fracture of lower end of left femur, initial encounter for closed fracture (principal); M97.12XA Periprosthetic fracture around internal prosthetic left knee joint, initial encounter; Z87.891 Personal history of nicotine dependence; W01.0XXA Fall on same level from slipping, tripping and stumbling without subsequent striking against object, initial encounter
CPT/HCPCS: 51702; 71045; 73560; 80053; 81001; 85025; 85610; 85730; 87077; 87088; 87186; 93005; 93010; 99284-25; J1170; J2405; J3010

== ENCOUNTER 2022-09-29 08:52 | Inpatient (IN) | payer OTHER, MEDICARE ==
[~2022-09-29] VITALS: Ht 162.6 cm; Wt 100.0 kg
[2022-09-29] MEDS ORDERED: VENTOLIN HFA18 GM INH (09:52)
[2022-09-29] MEDS ORDERED: TRIAMCINOLONE A15 GM TOP (09:53)
[2022-09-29] MEDS ORDERED: PROTOPIC100 G1 TOP (09:53)
--- NOTE | 2022-09-29 13:42 | NUR ---
PT ARRIVED FROM ER. 3 PERSON ASSIST TO SLIDE PT OVER TO HOSPITAL BED. PT ALERT AND ORINETED TO ALL BUT VERY DROWSY. PT REPORTS 10/10 HEADACHE PAIN AND REQUESTS MEDICAITON, SEE MAR FOR MEDICATION GIVEN. PT ANSWERS QUESTIONS WHEN PUSHED BUT IS OTHERWISE SLEEPING AND MOANING ABOUT HEADACHE. INTAKE INFORMATION OBTAINED FROM JEANIE (GRANDNIECE). PT FOLLOWS DIRECTIONS. GENERALIZED WEAKNESS NOTED. PT ITS UNABLE TO KEEP LEFT LEG ELEVATED, PT ATTRIBUTES THIS TO KNEE PAIN. PT REPORTS BASELINE NUMBNESS AND TINGLING TO TOES AND FINGERS. PINPOINT PUPILS NOTED. PT HAS WEAK LABORER HOISTING STRENGTH AND BILATERAL PLANTAR AND DORSI FELXION. LUNG SOUNDS CLEAR IN UPPER LOBES, CRACKELS NOTED IN BASES. OCCATIONAL MOIST COUGH NOTED. PT TOLERATING ROOM AIR WITH OXGYEN SATURATIONS ABOVE 94%. GENERALIZED EDEMA NOTED TO BILATERAL KNEES. PAIN WITH PASSIVE BEDNING OF LEFT KNEE. ABDOMEN SOFT BUT TENDER TO TOUCH. PT DRIFTS OFF TO SLEEP EASILY. LIGHTS DIMMED TO ASSIST WITH HEADACHE. KAROLINA, SMELTER OPERATOR, STATED IN REPORT THAT PT HAS BEEN CLEARED BY POISON CONTROL AND DOES NOT NEED ADDITIONAL CARDIAC MONITORING. NO ADDITIONAL REQUESTS OR COMPLAINTS. CALL LIGHT WITHIN REACH. BED RAILS UP. FAMILY AT BEDSIDE.
--- NOTE | 2022-09-29 15:08 | EKG ---
[facility] [address] [place] [address] Signed Sinus tachycardia Low voltage QRS Borderline ECG When compared with ECG of 25-FEB-2020 21:19, No significant change was found Confirmed by Monae Hays MD () on 09/29/2022 3:08:34 PM Electronically Signed By: MONAE HAYS MD 09/29/22 1508 PATIENT NAME: SVEN STAPLES ESTELA Electrocardiogram DATE OF : [birth year] PHYSICIAN: MONAE HAYS MD REPORT #: [id number] REPORT IS CONFIDENTIAL AND NOT TO BE RELEASED WITHOUT AUTHORIZATION
--- NOTE | 2022-09-29 15:15 | NUR ---
THIS RN TO ROOM TO CHECK ON PT. PT REQEUSTS TO GET UP TO RESTROOM. PT VERY WEEK AND HAS TROUBLE GETTING UP WITH FWW AND 2 PERSON ASSIST TO BEDSIDE COMODE. PT VOIDS ODOROUS YELLOW CONCENTRATED URINE. SUSAN CARE DONE. NEW PAD PROVIDED FOR UNDERWARE. PT DECLINES DEPENDS. SARASTEADY BACK TO BED. PT ASSITED INTO BED. PT REPORTS 9/10 HEADACHE AND REQUESTS ADDITIONAL MEDICATION. SEE MAR FOR MEDICATION GIVEN. IV MEDICATIONS STARTED (SEE MAR). IV SITE REMAINS WNL WITH NO S/S OF PHLEBITIS NOTED. NO ADDITIONAL REQUESTS OR COMPLAINTS. FAMILY REMAINS AT BEDSIDE. CALL LIGHT WITHIN REACH.
--- NOTE | 2022-09-29 16:09 | NUR ---
THIS RN TO ROOM TO CHECK ON PT. PT RESTING IN BED WITH EYES CLOSED. RESPRIATIONS EVEN WITH MILD SNORING NOTED. HEAD OF BED AT 30 DEGREES. NIECE AT BEDSIDE AND STATES PT APPEARS COMFORTABLE. NO ADDITIONAL NEEDS AT THIS TIME. CALL LIGHT WITHIN REACH. BED RAILS UP.
--- NOTE | 2022-09-29 16:28 | NUR ---
PT ADMITTED THIS SHIFT FOR PNEUMONIA. PT UP WITH RADHA STEADY AND 2 PERSON ASSIST. PT VERY WEAK AND NEEDS CONSIDERABLE ASSISTANCE TO GET UP TO VOID. PT HAS MINIMAL APPITITE THIS SHIFT BUT IS TAKING PO FLUIDS. PT OREINTED BUT VERY DROWSY THIS SHIFT. 10/ HEADACHE THIS SHIFT, PRN MEDICATION GIVEN. LUNG SOUNDS CLEAR IN UPPER LOBES, CRACKELS NOTED IN LOWER LOBES. PT TOLREATING ROOM AIR. IV ABX GIVEN. URINE NOTED TO BE ODOROUS, UA ORDERS PLACED, DUE FOR COLLECTION. WOUND NOTED TO BACK OF LEFT SIDE PANNUS, ALLEVYN IN PLACE, PHOTOGRAPHS ON CHART. PT CLEARD BY POISON CONTROL PER AIRPORT UTILITY WORKER, KAROLINA, FOR 4 DOSES OF 50MG BENADRYL, NO ADDITIONAL MONITORING. PT VERY DROWSY THIS SHIFT, BUT OREINTED TO ALL. PT VOIDING QUANAITY SUFFICENT. PT HAS NOT YET USED CALL LIGHT, BED ALARM ON FOR SAFETY.
--- NOTE | 2022-09-29 17:00 | NUR ---
Spoke with Asiya and her great niece, Zaida. Pt has not been feeling well and has pneumonia and sinus infection. 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 She has not been feeling well due to a virus for over 2 months. Her spouse, Malachi, recently went to [facility] and she has been living alone. She has a ramp into her house, walker, and shower chair. She plans on dc to home when cleared medically. Pt c/o of severe headache. Rn notified pt is requesting pain meds. for her headache.
--- NOTE | 2022-09-29 17:10 | NUR ---
THIS RN TO ROOM TO CHECK ON PT. PT CONTINUES RESTING WITH EYES CLOSED. MILD SNORING NOTED. PTS FAMILY REPORTS PT SEEMS "MUCH MORE COMFORTABLE." PT ALLOWED TO REST. CALL LIGHT WITHIN REACH. BED RAILS UP.
--- NOTE | 2022-09-29 18:40 | NUR ---
THIS RN TO ROOM TO CHECK ON PT. PT BOOSTED UP IN BED. HEAD OF BED REMAINS ELEAVTED TO 25 DEGREES. PT AWAKE ON AND OFF AND REPORTS 9/10 HEADACHE PAIN. SEE MAR FOR MEDICATION GIVEN. PT DENIES ADDITIONAL REQUESTS OR COMPLAINTS. CALL LIGHT WITHIN REACH. BED RAILS UP. FAMILY AT BEDSIDE.
--- NOTE | 2022-09-29 19:20 | NUR ---
SHIFT REPORT RECEIVED FROM OLIVEPAAMNADA DURAND AT BEDSIDE. pt AWAKE AND RESTING IN BED, WATCHING TV. ON RA, RR EVEN AND UNLABORED. SUKHDEEP WARE REMAINS IN ROOM. IV SITE WNL, FLUIDS INFUSING DIRECTED. CALL LIGHT IN REACH. NO NEEDS OR CONCERNS VERBALIZED AT THIS TIME. WILL CONTINUE TO MONITOR.
--- NOTE | 2022-09-29 19:43 | NUR ---
IV PUMP ALARMING, ISSUE RESOLVED. POTASSIUM RIDER COMPLETE, IV SITE REMAISN WNL, IV FLUIDS CONTINUE TO INFUSE DIRECTED. GRANDNIECE JEANIE REMAINS IN ROOM, CALL LIGHT IN REACH. NO ADDITIONAL NEEDS OR CONCERNS VERBALIZED.
--- NOTE | 2022-09-29 20:36 | NUR ---
PATIENT ASSISTED TO THE [facility] A 2PA W/FWW. PATIENT IS A HEAVY ASSIST. PATIENT ABLE TO VOID. PATIENT IS BACK IN BED RESTING. PATIENT REPORTS HEADACHE AND IS MOANING AND CRYING OUT. PATIENT GIVEN PRN MEDICATION PER ORDER. PATIENT PROVIDED WITH SIPS OF WATER. COOL WASH CLOTH APPLIED TO NECK AND FOREHEAD. ICE PACK APPLIED TO FOREHEAD. PATIENT DENIES ANY FURTHER NEEDS. CALL LIGHT IN REACH. IV INFUSING PER ORDER. FAMILY PRESENT IN ROOM.
--- NOTE | 2022-09-29 22:06 | NUR ---
IN ROOM TO COMPLETE ASSESSMENT, pt AWAKE AND INTERMITTENTLY MOANING IN BED-MEDICATED BY BRIDGE LEVERMAN. COOL RAG FOUND ON BEDSIDE TABLE AND FAMILY REMAINS IN ROOM. IV SITE WNL, FLUIDS INFUSING DIRECTED, REINFORCED TO PROTECT SITE. ALLEVYN TO LEFT LOWER BACK INTACT WITH VERY SCANT YELLOW SHADOWING. SCARS NOTED TO ABD AND LEFT KNEE, OLD/HEALED IN NATURE. BED ALARM ON FOR SAFETY, CALL LIGHT IN REACH. TV TURNED OFF TO PROMOTE REST/RELAXING ENVIRONMENT.
--- NOTE | 2022-09-29 23:03 | NUR ---
COFFEE BLACK PROVIDED.
--- NOTE | 2022-09-29 23:05 | NUR ---
pt AWAKE AND RESTING IN BED, BODY ARTIST IN ROOM TO PROVIDE BLACK COFFEE FAMILY REPORTS pt IS A DAILY COFFEE DRINKER AND THINKS MAYBE THAT NOT HAVING COFFEE COULD BE CONTRIBUTING TO HER HEADACHES. CALL LIGHT IN REACH, BED ALARM ON.
--- NOTE | 2022-09-30 00:16 | NUR ---
ROUNDED ON pt, pt HEARD QUIETLY AND INTERMITTENTLY MOANING TO SELF. pt REPORTS CONTINUED 10/10 HEADACHE PAIN, UNIMPROVED AFTER PRN PAIN MEDICATION EARLIER IN SHIFT. PRN TYLENOL GIVEN W/ PRN OXYCODONE AND NEW COOL RAG APPLIED TO FOREHEAD. pt HAS BEEN SIPPING ON CUP OF BLACK COFFEE. IV SITE WNL, FLUIDS INFUSING DIRECTED AND NEW BAG HUNG. BED ALARM REMAINS ON AND CALL LIGHT IN REACH. FAMILY ON COUCH AND APPEARS TO BE SLEEPING. WILL CONTINUE TO MONITOR.
--- NOTE | 2022-09-30 01:09 | NUR ---
ROUNDED ON pt, pt RESTING QUIETLY IN BED AND ON RA. RR EVEN AND UNLABORED, pt APPEARS TO BE SLEEPING AND NO MOANING/FACIAL GRIMACING IS NOTED CURRENTLY. WILL CONTINUE TO MONITOR, BED ALARM ON AND CALL LIGHT IN REACH.
--- NOTE | 2022-09-30 02:36 | NUR ---
rounded on pt, pt awoke to voice. vss. iv site wnl, fluids infusing as directed. pt heavily incontinent of urine, stephanie care done and fresh attends in place. no acute changes to assessment. faint crackles noted to left lower lobe, pt remains wnl on ra. oral care provided along with fresh water. pt boosted in bed and bed alarm on and call light in reach. family remains in room and sleeping on couch. pt reports pain improved now 8/10, fresh ice pack to back of head/neck and cool rag to forehead.
--- NOTE | 2022-09-30 03:36 | NUR ---
ROUNDED ON pt, pt DROWSY BUT ANSWERS QUESTIONS WHEN IN BED. DENEIS NEEDS OR CONCERNS, CALL LIGHT IN REACH AND BED ALARM ON FOR SAFETY.
--- NOTE | 2022-09-30 04:29 | NUR ---
pt RESTING QUIETLY IN BED, ON RA. RR EVEN AND UNLABORED. NO DISTRESS NOTED, EYES CLOSED. NO FACIAL GRIMACING OR MOANING NOTED AT THIS TIME. CALL LIGHT IN REACH. BED ALARM ON.
--- NOTE | 2022-09-30 05:23 | NUR ---
PATIENT IN BED RESTING AT THIS TIME. VITALS AND I&O'S CHARTED. BLOOD PRESSURE HIGH, RN NOTIFIED. CALL LIGHT IN REACH. NO FURTHER NEEDS AT THIS TIME.
--- NOTE | 2022-09-30 05:36 | NUR ---
rounded on pt, gambling monitor notified this rn of elevated bp-remains within call parameters. pt resting in bed, no distress noted. call light in reach and bed alarm remaisn on for safety. will continue to monitor.
--- NOTE | 2022-09-30 05:59 | NUR ---
DR CASTILLO MADE AWARE OF INCREASED CRITICAL WBC, PREVIOUSLY 30.9 AND NOW 32.8. pt ALREADY ON IV LEVAQUIN. UA COLLECTED LAST NIGHT, SHOWED 2+ BACTERIA-DR CASTILLO MADE AWARE. URINE CULTURE ALREADY REFLUXED AND PENDING. NO NEW ORDERS RECEIVED AT THIS TIME. SENIOR SQL SERVER DATABASE DEVELOPERTALIA EDWARDS ALSO UPDATED.
--- NOTE | 2022-09-30 06:12 | NUR ---
MESSAGE SENT TO DR CASTILLO REGARDING AM MAG RESULT OF 1.4 AND AM POTASSIUM RESULT OF 3.3. HEAD CD REACTOR OPERATOR ALSO UPDATED.
--- NOTE | 2022-09-30 06:37 | NUR ---
PATIENT HAD INCONT. VOID. THIS WEDDING DESIGNER IN TO CHANGE PATIENT. SUSAN CARE DONE. NEW SUSAN PAD IN PLACE. RN IN ROOM AT THIS TIME TO GIVE PAIN MEDS. CALL LIGHT IN REACH. N
--- NOTE | 2022-09-30 06:41 | NUR ---
ROUNDED ON pt, PRN PAIN MEDICATION GIVEN FOR 10/10 HEADACHE PAIN-SEE EMAR. pt DENIES NEED FOR PRN CONGESTION MEDICATION. BED ALARM ON AND CALL LIGHT. FAMILY REMAINS IN ROOM.
--- NOTE | 2022-09-30 07:05 | NUR ---
REPORT FROM TALIA RUSSELL. PATIENT RESTING IN BED WITH RESPIRATIONS EVEN AND UNLABORED. EYES CLOSED. FAMILY MEMBER IN ROOM, AT BEDSIDE. IV FLUIDS CONTINUE INFUSING. CALL LIGHT IN REACH. BED RAILS UP X2.
--- NOTE | 2022-09-30 08:13 | NUR ---
per patient's niece, no regular medications taken
--- NOTE | 2022-09-30 08:40 | NUR ---
PATIENT COMPLAINT OF HEADACHE 9/10 AT THIS TIME. INFORMED MEDICATIONS WERE GIVEN 2 HOURS AGO, TOO EARLY TO ADMINISTER AT THIS TIME. VERBALIZES UNDERSTANDING. FAMILY MEMBERS IN ROOM. ASSESSMENT COMPLETED.
[2022-09-30] MEDS ORDERED: VENTOLIN HFA18 GM INH (09:45)
--- NOTE | 2022-09-30 10:00 | NUR ---
Spoke with Asiya. She is more awake today, but states she feels terrible. She asks I call Melinda Huitron at the [facility]. She has been working with [facility] for group home medicaid for her spouse to go into an [facility]. She would like to know if they can go together for a short time. Asiya does not want to go to a SNF. She states she thinks she will be able to go home, Malachi will need to reside in an [facility] as she is unable to care for him, he requires a 2 person assist. I called and spoke with Breanne Cross from [facility], pt has had the financial eval, but not the physical eval. Asiya has not been evaluated at this time. This is a 45 day process. I called and left a message asking Melinda if the [place] will pay for an [facility] until the financials for them can be figured out.
--- NOTE | 2022-09-30 13:10 | NUR ---
Spoke with Elkin from [facility]. Updated to status of Asiya and need for her spouse in 2-3 weeks for placement. He will dc from [facility]. She requests I send Asiya's chart.
--- NOTE | 2022-09-30 15:39 | NUR ---
Assist from bed to wheelchair for x-rays. Did complain of left knee pain during transfer. Informed of new medication orders. Verbalizes understanding.
--- NOTE | 2022-09-30 15:40 | NUR ---
Spoke with Melinda from the [facility]. She states she is unsure where in the process for placement for Malachi is. She has an email showing pt has been qualified from [facility]. She also states Asiya has not been evaluated. The [facility] does not pay for [facility]. I will discuss with Asiya tomorrow if they have saving to pay for placement for a short while.
--- NOTE | 2022-09-30 16:11 | NUR ---
Chart faxed to Elkin at [facility] requesting placement.
--- NOTE | 2022-09-30 18:02 | NUR ---
Alert and oriented today. Pain uncontrolled with oral medications this AM. Improved with celexa, nasal spray and pseudoephedrine. Headache improved this afternoon. Continue to give tylenol this afternoon. IV mag replacement, oral potassium given. IV fluids changed to D5LR with potassium this afternoon. Repeat chest x-ray shows positibe pneumonia. IV rocephin and IV levaquin given. Remains on room air. 2 person transfer with 3rd for assist to wheelchair for x-ray. PT and OT ordered.
--- NOTE | 2022-09-30 19:24 | NUR ---
Received bedside report from offgoing shift, hourly rounding initiated.
--- NOTE | 2022-09-30 20:24 | NUR ---
PATIENT ASSISTED TO THE BR A SBA. PATIENT ABLE TO VOID AND HAVE BM. BM IS BROWN, LIQUID AND SEDIMENT NOTED. PATIENT IS BACK IN BED RESTING. PATIENTS IV INFUSING PER ORDER. PATIENTS CALL LIGHTS AND BELONGINGS ARE WITHIN REACH. PATIENT DENIES ANY FURTHER NEEDS.
--- NOTE | 2022-09-30 20:36 | NUR ---
IN PT ROOM FOR VS, MEDICATION, AND ASSESSMENT. PT HAS NO COMPLAINT OF PAIN AT THIS TIME, NO DISCOMFORT, CALL LIGHT IN REACH.
--- NOTE | 2022-09-30 22:28 | NUR ---
IN PT ROOM FOR ROUNDING. PT RESTING ON BACK, EYES CLOSED, BREATHING EVEN AND UNLABORED WITH NO INDICATION OF PAIN OR DISCOMFORT. PT TV IS ON, CALL LIGHT IN REACH.
--- NOTE | 2022-09-30 23:41 | NUR ---
In pt room for rounding. Pt resting on back with HOB elevated to watch TV. Asked pt if toileting assistance was needed and pt replied no, maybe in the morning. Pt has no complaint of pain or discomfort, call light in reach.
--- NOTE | 2022-10-01 00:33 | NUR ---
IN PT ROOM FOR ROUDNING/ASSIST WITH SUSAN-CARE AND BRIEF CARE. PT REQUESTING PAIN MEDICATION AFTER MOVING, PAIN MEDICATION PROVIDED. PT CALL LIGHT IN REACH
--- NOTE | 2022-10-01 01:24 | NUR ---
In pt room for rounding. pt resting on back, HOB slightly elevated. Pt TV on, breathing even and unlabored, no indication of pain or discomfort. Pt call light in reach
--- NOTE | 2022-10-01 03:44 | NUR ---
IN PT ROOM FOR ROUNDING, ASSESSMENT, PT RESTING ON BACK, BREATHING EVEN AND UNLABORED. PT STATES SHE FEELS BETTER THAN WHEN SHE CXAME IN PT HAS NO COMPLAINT OF PAIN OR DISCOMFORT AT THIS TIME, CALL LIGHT IN REACH
--- NOTE | 2022-10-01 05:03 | NUR ---
IN PT ROOM FOR ROUNDING. PT RESTING ON BACK, HOB SLIGHTLY ELEVATED. PT BREATHING IS EVEN AND UNLABORED, NO INDICATION OF PAIN OR DISCOMFORT. PT CALL LIGHT IN REACH.
--- NOTE | 2022-10-01 05:52 | NUR ---
in pt room for diaper and stephanie care. pt resting on back, diaper wet and urinated again while changing. Pt linens and brief changed, no complaint of pain, call light in reach.
--- NOTE | 2022-10-01 07:19 | NUR ---
REPORT RECEIVED FROM KATYA MELGAR, ALL QUESTIONS ANSWERED. PT RESTING QUIETLY IN BED WITH EYES CLOSED. RESPIRATIONS EVEN AND UNLABORED. CALL LIGHT IN REACH.
--- NOTE | 2022-10-01 08:30 | NUR ---
PT SITTING UP AWAKE IN BED VISITING WITH FAMILY. BREAKFAST ARRIVES. MEDICATIONS ADMINISTERED. PT DENIES FURTHER NEEDS AT THIS TIME. CALL LIGHT IN REACH.
--- NOTE | 2022-10-01 09:48 | NUR ---
PT CALL LIGHT ANSWERED. PT REQ TO USE BSC. PT ASSISTED TO BSC W ALAINA STEADY BY 2 P HEAVY ASSIST. PT ON BSC. PT REQ SHOWER, SHOWER CHAIR BROUGHT TO ROOM AND THEN PT REFUSED SHOWER. PT UP FROM COMMODE. RN AND I TRIED TO GET PT INTO CHAIR BUT IT WAS AN UNSAFE TRANSFER W ALAINA STEADY AND PT BEING WEAK. PT BACK TO BED. VITALS AND IS AND OS COMPLETE. ICE WATER AND SODA PROVIDED TO PT. NO FURTHER NEEDS. CALL LIGHT WITHIN REACH
--- NOTE | 2022-10-01 10:19 | NUR ---
MORNING ASSESSMENT COMPLETE. ASSISTED PATIENT TO COMMODE WITH RADHA STEADY AND CAN ASSIST. PT HEAVY ASSIST, DIFFICULTIES FOLLOW INSTRUCTION AT TIMES. UNABLE TO SAFELY TRANSFER PT WITH RADHA STEADY TO CHAIR DUE TO RADHA STEADY NOT FITTING UNDER CHAIR. FINE CRACKLES HEARD IN LLL, DIM AND CLEAR OTHERWISE. PT C/O HEADACHE PAIN, DENIES NEED FOR INTERVENTION AT THIS TIME, STATES PAIN HAS IMPROVED. OLD KNEE SURGERY SCAR AND ABD SURG SCAR NOTED. OLD LEFT NEPHROSTOMY TUBE SITE WITH PURULENT DRAINAGE NOTED, DRESSING CHANGED. PT DENIES FURTHER NEEDS AT THIS TIME. CALL LIGHT IN REACH.
--- NOTE | 2022-10-01 11:00 | NUR ---
Spoke with sAiya and she agrees to SNF as this is recommendation from Rhonda in PT. Per 9:[address] Pedersen is also recommending dc to SNF. Pt is concerned as her spouse is at [facility]. She would like to go to [facility], concerned as he will dc in approx. 2 weeks and there is no one to stay with him at home. He cannot live alone. Disccused with Asiya, [facility] will provide a safe dc. I called [facility] last night and they are reviewing his chart. Updated Asiya she is qualified for moth exterminator medicaid. Malachi is in the process. Called and spoke with Breanne Cross and asked if they could finish is final assessment before he leave the SNF to qualify to placement paid from medicaid. She will speak with Vernell Muhammad and request. Called and spoke with Felicia at [facility], they will have a bed open next week. Chart faxed. Updated Dr. Pedersen. Plan is for pt to dc next week.
--- NOTE | 2022-10-01 11:56 | NUR ---
PT RESTING QUIETLY IN BED WITH EYES CLOSED. RESPIRATIONS EVEN AND UNLABORED. CALL LIGHT IN REACH.
--- NOTE | 2022-10-01 12:34 | NUR ---
PT LYING IN BED AWAKENS EASILY. C/O 9/10 HEADACHE PAIN, GIVEN PRN OXYCODONE, SEE EMAR. PT DENIES WANTING TO EAT LUNCH, WILL LEAVE AT BEDSIDE AT THIS TIME. PT DENIES FURTHER NEEDS AT THIS TIME. CALL LIGHT IN REACH.
--- NOTE | 2022-10-01 14:58 | NUR ---
PT C/O 01/30 HEADACHE PAIN, GIVEN PRN TYLENOL. PT DENIES FURTHER NEEDS AT THIS TIME. CALL LIGHT IN REACH.
--- NOTE | 2022-10-01 17:55 | NUR ---
PT I&O'S DOCUMENTED, REFRESHED WATER. PT REFUSED DINNER ONLY WANTED THE FRUIT. SHE IS WATCHING TV LAYING IN BED. PT IS CONTENT, NO OTHER NEEDS AT THIS TIME. CALL LIGHT IN HAND.
--- NOTE | 2022-10-01 18:33 | NUR ---
PT CHECKED, DRY. TURNED WITH THREE PILLOWS TO RIGHT SIDE. PT STATES PAIN HAS IMRPOVED. DENIES NEEDS AT THIS TIME. CALL LIGHT IN REACH.
--- NOTE | 2022-10-01 19:32 | NUR ---
received bedside report from offgoing shift. Hourly rounding initiated.
--- NOTE | 2022-10-01 21:16 | NUR ---
IN PT ROOM FOR ASSESSMENT, 2 RN SKIN ASSESSMENT COMPLETED WITH TALIA RUSSELL, PT COMPLAINT OF HEADACHE, PROVIDED PAIN MEDICINE, NO FURTHER COMPLAINT, CALL LIGHT IN REACH
--- NOTE | 2022-10-01 23:10 | NUR ---
IN PT ROOM FOR ROUNDING. PT RESTING ON BACK, EYES CLOSED, BREATHING EVEN AND UNLABORE, NO INDICATION OF PAIN OR DISCOMFORT. PT CALL LIGHT IN REACH.
--- NOTE | 2022-10-02 00:38 | NUR ---
In pt room for rounding. pt resting on back, HOB elevated, eyes closed with breathing even and unlabored. Pt has no indication of pain or discomfort, call light in reach.
--- NOTE | 2022-10-02 02:21 | NUR ---
IN PT ROOM FOR ROUNDING. PT RESTING ON BACK WITH HOB ELEVATED. BREATHING EVEN AND UNLABORED, CALL LIGHT IN REACH, NO INDICATION OF PAIN OR DISCOMFORT.
--- NOTE | 2022-10-02 04:18 | NUR ---
IN PT ROOM FOR ROUNDING. PT RESTING ON BACK, HOB ELEVATED. PT CALL LIGHT IN REACH, BREATHING EVEN AND UNLABORED, NO INDICATION OF PAIN OR DISCOMFORT.
--- NOTE | 2022-10-02 07:20 | NUR ---
RECIEVED SHIFT REPORT. PT RESTING IN BED, EYES CLOSED, BREATHING EVEN AND UNLABORED. CALL LIGHT WITHIN REACH.
--- NOTE | 2022-10-02 08:14 | NUR ---
THIS PROFESSOR OF THEOLOGY ALONG WITH RN ANGELICA, ASSISTED PT TO COMMODE. PT WAS ABLE TO HELP PULL SELF ON TO EQUIPMENT WITH ASSISTANCE. PT HAD SOME WEAKNESS ON THE L SIDE BUT WAS STEADY WHEN UP. SHE DID COMPLAIN OF PAIN WHILE MOVING BUT SUBSIDED AFTER SHE WAS SITTING IN RECLINER WITH FEET ELEVATED. THIS PROFESSOR OF THEOLOGY PERFORMED SUSAN CARE AND PUT NEW BREIF. LINENS WERE CHANGED ON BED/CHAIR. WATER RERESHED. PT COMPLAINED OF UPSET STOMACH SO I GOT HER 7UP. PT IS SET UP FOR BREAKFAST IN RECLINER. WATCHING TV, CONTENT. CALL LIGHT IN REACH.
--- NOTE | 2022-10-02 09:28 | NUR ---
MORNING ASSESSMENT COMPLETE. PT UP IN RECLINER, RATES PAIN 9/10 BEHIND EARS, AND FOREHEAD. PRN PAIN MEDICATION ADMINISTERED (PER EMAR). PT STATES UNABLE TO HAVE A BOWEL MOVEMENT. REFUSED MIRALAX. DISCUSSED ENEMA OPTIONS, PT REFUSED. [place] ALSO REFUSED BREAKFAST. BOWEL SOUNDS ACTIVE IN ALL QUADRANTS. TENDER WITH PALPATION. ALLEVYN DRESSING CHANGED TO LEFT SITE, PURULENT DRAINAGE NOTED. CALL LIGHT WITHIN REACH. DENIES FURTHER NEEDS.
--- NOTE | 2022-10-02 10:09 | NUR ---
PER LIZ AT [facility] PATIENT CAN BE ACCEPTED TODAY IF READY FOR DISCHARGE. WILL AWAIT DR. ROWE EVALUATION THEN UPDATE LIZ.
--- NOTE | 2022-10-02 12:04 | NUR ---
PT SITTING UP[ IN CHAIR, TV ON. TRIED TO ROUSE PT WHO WAS SLEEPING BUT SHE DID NOT AWAKEN. CALLED BY NAME-NO RESPONSE. WILL FOLLOW
--- NOTE | 2022-10-02 12:51 | NUR ---
PT IN RECLINER, DROWSY BUT EASY TO AROUSE. PT STATES ISNT HUNGRY BUT WILLING TO TRY AND EAT. DENIES FURTHER NEEDS. CALL LIGHT WITHIN REACH
--- NOTE | 2022-10-02 14:03 | NUR ---
PATIENT IN CHAIR AFTER MEAL. VITALS AND I/O'S COMPLETED. CALL LIGHT WITHIN REACH.
--- NOTE | 2022-10-02 14:15 | NUR ---
PT SITTING IN RECLINER, EYES CLOSED, BREATHING EVEN AND UNLABORED. CALL LIGHT WITHIN REACH.
--- NOTE | 2022-10-02 15:28 | NUR ---
IN TO SEE PATIENT. PATIENT SLEEPING IN CHAIR. AT FIRST PATIENT DOES NOT RESPOND. TV MUTED THEN PATIENT RESPONDS TO VOICE AND TOUCH. PATIENT STATES SHE IS DOING OKAY. PATIENT STATES "I HAVE BEEN SHORT ON SLEEP FOR THE LAST 5 DAYS." DISCUSS ONGOING CONCERN REGARDING CONSTIPATION.PATIENT DECLINES MEDICATION AT THIS TIME, BUT THE PATIENT WILL CONSIDER TAKING MIRALAX. PATIENT DENIES ABD PAIN. ADVISED THAT PATIENT WAS ACCEPTED TO [facility] AND WOULD BE ABLE TO DISCHARGE WHEN STABLE. ADVISED PATIENT THAT SHE WOULD NOT DC OVER THE WEEKEND. PATIENT STATES "I REALLY DON'T WANT TO GO, BUT MY KNEE IS HURTING AND THAT MAKES IT DIFFICULT." PATIENT STATES SHE HURT HER KNEE WHILE GETTING OUT OF THE SHOWER PRIOR TO HER ADMISSION. WARM BLANKET REQUEST, GIVEN. I ADVISED THE PATIENT CASE MANAGEMENT WILL CHECK ON HER WEDNESDAY.
--- NOTE | 2022-10-02 16:30 | NUR ---
AFTERNOON ASSESSMENT COMPLETE. NO NEW CHANGES SINCE MORNING ASSESSMENT. PT ATTEMPTED TO HAVE A BM, SMEAR NOTED AT THIS TIME. PT BACK IN CHAIR. CALL LIGHT WITHIN REACH
--- NOTE | 2022-10-02 17:54 | NUR ---
PATIENT IN CHAIR AFTER MEAL. VITALS AND I/O'S COMPLETED. CALL LIGHT WITHIN REACH.
--- NOTE | 2022-10-02 19:25 | NUR ---
received bedside report from offgoing shift, hourly rounding initiated
--- NOTE | 2022-10-02 21:03 | NUR ---
IN PT ROOM FOR ROUNDING/ASSESSMENT/MEDICATION ADMINSITRATION. PT ASSISTED WITH MOVING TO BED FROM CHAIR. SKIN ASSESSMENT COMPLETED WITH TALIA ZAMORA. PT CALL LIGHT IN REACH
--- NOTE | 2022-10-02 23:22 | NUR ---
IN PT ROOM FOR ROUNDING. PT RESTING ON BACK, BREATHING EVEN AND UNLABORED, NO INDICATION OF PAIN OR DISCOMFORT, HOB SLIGHTLY ELEVATED, CALL LIGHT IN REACH.
--- NOTE | 2022-10-02 23:51 | NUR ---
In pt room for assistance with toileting. 2 RN assist with sera-steddy to commode without incident, pt stephanie care completed, back to bed and call light in reach. no complaint of pain or discomfort.
--- NOTE | 2022-10-03 00:41 | NUR ---
IN PT ROOM FOR ROUNDING. PT RESTING ON BACK, HOB ELEVATED, CALL LIGHT IN REACH, BREATHING EVEN AND UNLABORED, PT STATES NO PAIN AT THIS TIME,
--- NOTE | 2022-10-03 03:36 | NUR ---
in pt room for rounding. pt resting on back,HOB elevated, call light in reach, breathing even and unlabored, no indicatino of pain
--- NOTE | 2022-10-03 04:12 | NUR ---
IN TO ANSWER CALL LIGHT. PT REPORTING HEADACHE RATING PAIN 6/10. PRN TYLENOL ADMINISTERED, SEE MINH. TALIA BLAS IN TO ASSIST WITH BOOSTING PT UP IN BED. PT REQUESTING WATER, TALIA BLAS TO BRING PT WATER. PT REPORTS NO OTHER NEEDS AT THIS TIME. CALL LIGHT IN REACH.
--- NOTE | 2022-10-03 05:25 | NUR ---
PT IN BED. VITALS COMPLETE. PT ASSISTED UP TO BSC W 2 ELEAZAR W ALAINA JEREZ. PT LINEN CHANGED. PT ASSISTED UP TO CHAIR. BLANKET PROVIDED. TRAY TABLE BY PT. NO FURTHER NEEDS. CALL LIGHT WITHIN REACH
--- NOTE | 2022-10-03 07:54 | NUR ---
RECIEVED SHIFT REPORT. PT SITTING IN RECLINER, AWAKE. MILD REDDNESS NOTED TO IV SITE, FLUSHED W/O DIFFICULTY AND REDRESSED. PT DENIES PAIN AT THE SITE. WILL CONTIUNE TO MONITOR. SUGGESTED TO PT ON TAKING MIRALAX AND PT WILLING TO TAKE IT WITH JUICE.
--- NOTE | 2022-10-03 08:22 | NUR ---
MORNING ASSESSMENT COMPLETE. INSP. WHEEZE HEARD RIGHT UPPER LOBE AND BILAT LOWER LOBES. PT DRINKING MIRALX AT THIS TIME. DRESSING INTACT TO BACK LEFT SITE. DENIES PAIN AT THIS TIME. CALL LIGHT WITHIN REACH.
--- NOTE | 2022-10-03 09:19 | NUR ---
PATIENT IN CHAIR AFTER MEAL. VITALS AND I/O'S COMPLETED. PT REQUESTED TO HAVE "EARS WASHED OUT". THIS STAFF WEAPONS OFFICER WILL FOLLOW UP WITH THE NURSE ON THIS ISSUE. CALL LIGHT WITHIN REACH.
--- NOTE | 2022-10-03 10:11 | NUR ---
PT CALLED TO USE COMMODE. 2PA, RADHA JEREZ. PT ABLE TO HAVE A SMALL BM. PT IN BED. CALL LIGHT WITHIN REACH.
--- NOTE | 2022-10-03 12:30 | NUR ---
IN ROOMT TO GET PT UP IN RECLINER FOR LUNCH, PT REFUSED. STATES "I AM TO TIRED" PT BOOSTED IN BED, LUNCH SET UP. PT AGREED TO GET INTO RECLINER FOR DINNER. CALL LIGHT WITHIN REACH
--- NOTE | 2022-10-03 15:06 | NUR ---
AFTERNOON ASSESSMENT COMPLETE. PAIN 10/10 LOCATED IN THE HEAD. PRN PAIN MEDICATION ADMINISTERED (PER EMAR). IV INFILTRATED. NEW IV STARTED BY TALIA HAUSER. PT RESTING IN BED, DROWSEY, EASY TO AROUSE. CALL LIGHT WITHIN REACH.
--- NOTE | 2022-10-03 18:40 | NUR ---
PATIENT IN CHAIR. VITALS AND I/O'S COMPLETED. PT WANTED TO KEEP TRAY OF DINNER. CALL LIGHT WITHIN REACH.
--- NOTE | 2022-10-03 19:30 | NUR ---
SHIFT REPORT RECEIVED FROM DAYSHIFT RN CJ AT BEDSIDE. pt DROWSY AND RESTING IN BED, AWOKE TO VOICE. DENIES NEEDS OR CONCERNS, ON RA. RR EVEN AND UNLABORED. NO DISTRESS NOTED. IV SITE WNL, IV FLUIDS INFUSING DIRECTED. CALL LIGHT IN REACH AND pt IN VIEW OF RN STATION. WILL CONTINUE TO MONITOR.
--- NOTE | 2022-10-03 19:57 | NUR ---
CALL LIGHT ANSWERED, ASSISTED pt WITH RAISING BLE IN CHAIR. NO ADDITIONAL NEEDS, CALL LIGHT IN REACH.
--- NOTE | 2022-10-03 20:45 | NUR ---
ASSESSMENT COMPLETE, SCHEDULED MEDS GIVEN-SEE EMAR ALONG WITH PRN TYLENOL FOR REPORTS 6/10 PAIN RELATED TO HEADACHE. pt FULLY ALERT AND ORIENTED X4. pt INTERACTIVE AND SPEECH APPROPRIATE. IV SITE FLUSHED WITH BRISK BLOOD RETURN, IV FLUIDS INFUSING DIRECTED. MEDICATION APPLIED TO LEFT NEPHROSTOMY TUBE SITE, X2 PUNCTURE SITES NOTED. PHOTOS IN CHART. NEW ALLEVYN DATED AND IN PLACE, VERY SCANT RED DRAINAGE NOTED TO 4X4 GAUZE WHEN CLEANED WITH WOUND CLEANSER. 2RN SKIN ASSESSMENT COMPLETE W/ CHOPPER GUN OPERATOR IN ROOM. pt TRANSERRED VIA SERA STEADY 2PA FROM CHAIR TO BED, BED ALARM ON D/T FALL RISK. PER pt REQUEST, BED RAILS X4 UP. pt ALSO REPORTS TENDERNESS TO LEFT KNEE. BOARD UPDATED AND CALL LIGHT IN REACH. WARM BLANKET PROVIDED, NO ADDITIONAL NEEDS OR CONCERNS VERBALIZED. WILL CONTINUE TO MONITOR.
--- NOTE | 2022-10-03 22:12 | NUR ---
scheduled pseudoephedrine given-see emar. no additional needs or concerns verbalized. call light in reach. iv site wnl, fluids infusing as directed. bed alarm on.
--- NOTE | 2022-10-04 00:09 | NUR ---
ROUNDED ON pt, pt ASKED FOR ASSISTANCE PULLING UP SOCKS. ASSISTANCE PROVIDED. pt INCONTINENT OF BOTH URINE AND VERY SMALL SMEAR BM NOTED. SUSAN CARE PROVIDED AND CLEAN DRY ATTENDS IN PLACE. pt ASSISTED WITH POSITION CHANGE.BARRIER CREAM TO BUTTOCKS. PILLOWS UNDER RIGHT HIP FOR COMFORT. IV SITE WNL, FLUIDS INFUSING DIRECTED.
--- NOTE | 2022-10-04 02:02 | NUR ---
call light answered, pt reports 7/10 pain related to headache and abd pain, lower abd. pt medicated w/ miralax and senna at start of shift, reports pain is cramp like consistency. will monitor, no abd distention noted. bowel tones active. no acute changes to assessment, iv site wnl. iv fluids infusing as directed. call light in reach. bed alarm on for safety. pt repositioned in bed, bilateral hips floated.
--- NOTE | 2022-10-04 02:34 | NUR ---
pt REPORTS CONT. PAIN TO ABD-RECENTLY GIVEN PRN PAIN MEDICATION. HEAT PACK ALSO PROVIDED AND WRAPPED IN PILLOWCASE. CALL LIGHT IN REACH, NO ADDITIONAL NEEDS OR REQUESTS MADE.
--- NOTE | 2022-10-04 03:49 | NUR ---
ROUNDED ON pt, pt RESTING. AWOKE WHEN PULLING OUT PILLOW FROM LEFT SIDE. pt REPORTS PAIN IN ABD AND PAIN IS NOW "WORKING UP TOWARDS MY HEAD". pt DENIES PRN TYLENOL WHEN OFFERED. HEAT PACK ALSO REMOVED FROM ABD. IV SITE WNL, FLUIDS INFUSING DIRECTED. WARM RAG TO FOREHEAD. CALL LIGHT IN REACH.
--- NOTE | 2022-10-04 05:26 | NUR ---
call light answered, pt requesting pillows be removed and boosted in bed. pillows now under right side per request. skin tear to gluteal cleft approx 0.5inch long, allevyn in place. pt reports 9/10 abd and headache pain, denies need to have a bm, had approx 1/3 of evening scheduled miralax. initially declined nausea medication but then accepted prn zofran along with prn tylenol. when asked if various interventions improved pain, pt denies. will reassess around 0600 to offer prn oxy. pt agrees to poc, call light in reach. bed alarm on for safety. iv site wnl, fluids infusing as directed. vss and i&o's collected. dry attends in place after incontinent of large amount of urine.
--- NOTE | 2022-10-04 06:30 | NUR ---
ROUNDED ON pt, pt RESTING IN BED WITH EYES CLOSED. ON RA, RR EVEN AND UNLABORED. NO DISTRESS NOTED. WILL ALLOW pt TO CONTINUE TO REST. CALL LIGHT IN REACH AND BED ALARM ON FOR SAFETY.
--- NOTE | 2022-10-04 07:45 | NUR ---
Patient in chair for meal. Am care completed after using commode. Pt did very well with julien cuadra. Pt was able to follow commands as well as doing at least 50% of the lifting. Call light within reach.
--- NOTE | 2022-10-04 07:52 | NUR ---
RECIEVED SHIFT REPORT. PT AWAKE IN BED. DENIES FURTHER NEEDS. CALL LIGHT WITHIN REACH
--- NOTE | 2022-10-04 08:34 | NUR ---
MORNING ASSESSMENT COMPLETE. PT UP IN RECLINER. PAIN 8/10, BUT AWARE OF PRN SCHEDULE. PT APPEARS DROWSEY BUT EASY TO AROUSE. LUNG SOUNDS COURSE IN BILAT BASES. IVF ADMINISTERING AT THIS TIME. CALL LIGHT WITHIN REACH. PT REFUSED MIRALAX AND STATES "MAKES MY STOMACH HURT".
--- NOTE | 2022-10-04 10:03 | NUR ---
PATIENT IN CHAIR. VITALS AND I/O'S COMPLETED, CALL LIGHT WITHIN REACH.
--- NOTE | 2022-10-04 12:31 | NUR ---
PT UP IN RECLINER, SET UP FOR LUNCH, DENIES ANY NEEDS AT THIS TIME. CALL LIGHT WITHIN REACH
--- NOTE | 2022-10-04 13:47 | NUR ---
PATIENT UP TO CHAIR, GIVEN ONE 500MG TYLENOL. BACTROBAN SCANNED, PATIENT THEN SAID SHE WANTED TO WAIT INTIL LATER TO APPLY THE ABX OINTMENT. PATIENT BACK TO SLEEP WITH REGULAR RESPIRATIONS.
--- NOTE | 2022-10-04 14:57 | NUR ---
PATIENT IN CHAIR WATCHING TELEVISION. VITALS AND I/O'S COMPLETED. CALL LIGHT WITHIN REACH.
--- NOTE | 2022-10-04 15:59 | NUR ---
PT IN RECLINER, CALL LIGHT WITHIN REACH. DENIES FURTHER NEEDS.
--- NOTE | 2022-10-04 16:20 | NUR ---
AFTERNOON ASSESSMENT COMPLETE. NO NEW CHANGES SINCE MORNING ASSESSMENT. PT IS IN RECLINER AND DENIES ANY DISCOMFORTS AT THIS TIME. CALL LIGHT IN REACH
--- NOTE | 2022-10-04 18:23 | NUR ---
PATIENT IN BED AFTER MEAL. VITALS AND I/O'S COMPLETED. CALL LIGHT WITHIN REACH.
--- NOTE | 2022-10-04 18:27 | NUR ---
PT IN BED, AWAKE. DENIES FURTHER NEEDS CALL LIGHT WITHIN REACH
--- NOTE | 2022-10-04 19:24 | NUR ---
REPORT RECEIVED FROM DAY SHIFT RN. PT LYING IN BED ALERT AND ORIENTED. ASSISTED TO REPOSITION. NO FURTHER NEEDS. CALL LIGHT IN REACH.
--- NOTE | 2022-10-04 20:45 | NUR ---
EVENING ASSESSMENT COMPLETE. SCHEDULED MEDS ADMIN PER EMAR. PT REPORTS 8/10 HEADACHE PAIN. PRN FOR PAIN GIVEN. DENIES NAUSEA. PT DROWSY, ANSWERS QUESTIONS APPROPRIATELY. ALLEVYN TO LEFT SIDE CDI. ASSISTED TO REPOSITION. PT DENIES QUESTIONS OR CONCERNS. CALL LIGHT IN REACH.
--- NOTE | 2022-10-04 23:54 | NUR ---
PT RESTING IN BED WITH EYES CLOSED. RESPIRATIONS EVEN. HOB ELEVATED. CALL LIGHT IN REACH.
--- NOTE | 2022-10-05 01:30 | NUR ---
PT RESTING WITH EYES CLOSED. AWAKENS EASILY. INCONTINENT OF URINE. STAFF ASSIST WITH SUSAN CARE. CLEAN BRIEF IN PLACE. OPEN AREA NOTED IN RIGHT GROIN FOLD. CAVILON SKIN PROTECTANT USED. 2PA TO REPOSITION IN BED. PT REPORTS HEADACHE/SINUS PAIN 10. PRN FOR PAIN ADMIN PER EMAR. NO FURTHER NEEDS. CALL LIGHT IN REACH.
--- NOTE | 2022-10-05 03:21 | NUR ---
CALL LIGHT ANSWERED. IN TO ASSIST PT REPOSITION IN BED FOR COMFORT. PT ABLE TO ASSIST WITH REPOSITIONING. ASSESSMENT COMPLETE. NO CHANGES NOTED. CALL LIGHT IN REACH.
--- NOTE | 2022-10-05 05:28 | NUR ---
PT IN BED. VITALS COMPLETE. PT UP TO BSC 2 PA W FWW. PT TOLERATED WELL. PT UP FROM BSC TO CHAIR. PT PROVIDED ORAL CARE SUPPLIES. PT PROVIDED WARM WASH CLOTH AND BLANKET. PT PROVIDED ICE WATER. NO FURTHER NEEDS. CALL LIGHT WITHIN REACH
--- NOTE | 2022-10-05 06:08 | NUR ---
PT SITTING IN RECLINER WITH EYES CLOSED. AWAKENS EASILY. REPORTS PAIN IS TOLERABLE. WARM COMPRESS PROVIDED FOR NECK. ASSESSMENT UNCHANGED. NO FURTHER NEEDS. CALL LIGHT IN REACH.
--- NOTE | 2022-10-05 07:37 | NUR ---
PT SITTING UP IN THE CHAIR WATCHING TV AT TIME OF SHIFT REPORT. H20 AND CALL LIGHT AT CHAIRSIDE PT DENIES NEEDS OF.
--- NOTE | 2022-10-05 08:30 | NUR ---
SPOKE WITH DR. DODGE, SHE BELIEVES THE PATIENT IS OKAY TO DISCHARGE AND WILL ASSESS HER SHORTLY. IN TO PATIENT ROOM. PATIENT ADVISED OF DISCHARGE AND NEEDS FOR TRANSPORT. PATIENT STATES SHE WOULD PREFER [facility] AT THIS TIME. ADVISED I WILL CONTACT TRANSP[facility] TO SCHEDULE. SPOKE WITH [facility], NO TRANSPORT AVAILABLE AT THIS TIME. THEY WILL TRY TO CONTACT [facility] AND OTHER DRIVERS TO SEE IF SOMEONE IS AVAILABLE.
[2022-10-05] MEDS ORDERED: CELECOXIB200 MG PO (08:32)
[2022-10-05] MEDS ORDERED: OXYCODONE HCL5 MG PO (08:32)
[2022-10-05] MEDS ORDERED: LEVOFLOXACIN750 MG PO (08:32)
[2022-10-05] MEDS ORDERED: VENTOLIN HFA18 GM INH (08:32)
[2022-10-05] MEDS ORDERED: FLUTICASONE PRO16 GM NAS (08:33)
[2022-10-05] MEDS ORDERED: ACETAMINOPHEN500 MG PO (08:33)
[2022-10-05] MEDS ORDERED: MUCINEX600 MG PO (08:33)
[2022-10-05] MEDS ORDERED: BENZONATATE100 MG PO (08:33)
[2022-10-05] MEDS ORDERED: MELATONIN3 MG PO (08:34)
--- NOTE | 2022-10-05 08:47 | NUR ---
PT CONTINUES UP IN THE CHAIR REFUSES BREAKFAST WELL DIFFERENT ITEMS OFFERED. DR DODGE IN TO SEE PT DC DISCUSSED. PT AGREES SHE IS READY. STILL HAS A HEADACHE, TYLENOL GIVEN.
--- NOTE | 2022-10-05 09:00 | NUR ---
CHART UPDATES FAXED TO LIZ AT [facility]. NO UPDATE ON TRANSPORT AT THIS TIME. CONTACTED [facility], BUT THEY ARE UNABLE TO TRANSPORT PATIENTS FROM FACILITY TO FACILITY. RETURNED CALL TO [facility], NO UPDATES AT THIS TIME. SPOKE WITH LIZ AT [facility], PATIENT MUST ARRIVE BY 1430 TODAY AT THE LATEST. WILL AWAIT TRANSPORT UPDATE FOR TODAY. IF NO TRANSPORT [facility] STATES THEY WILL ACCEPT PATIENT TOMORROW.
--- NOTE | 2022-10-05 09:08 | NUR ---
PT RESTING IN CHAIR. VITALS AND IS AND OS COMPLETE. PT DID NOT WANT TO EAT BREAKFAST. PT REFUSED TO USE BSC. NO NEEDS AT THIS TIME. CALL LIGHT WITHIN REACH
--- NOTE | 2022-10-05 09:40 | NUR ---
both nares swabbed without complication.
--- NOTE | 2022-10-05 11:02 | NUR ---
PT STILL UP IN THE CHAIR DAUGHTERS X2 ARE PRESENT. QUESTIONS ANSWERED R/T LA PAPERWORK NEEDS. PT CONTINUES TO HAVE A HEADACHE TYLENOL WAS INEFFECTIVE, OXY ADMINISTERED. PT DENIES OTHER NEEDS OF.
--- NOTE | 2022-10-05 11:12 | NUR ---
SPOKE WITH [facility], NO DRIVERS AVAILABLE FOR TRANSPORTATION AT THIS TIME. TRANSPORTATION SCHEDULED FOR 10/06/22 @ 0711.
--- NOTE | 2022-10-05 11:40 | NUR ---
NOON MEDS DELIVERED, PT AGREES HER HEAD FEELS BETTER. PT DENIES NEED TO TOILET OR OTHER, AGREES TO CALL STAFF WHEN SHE IS READY. CALL LIGHT AND FRESH H20 AT CHAIRSIDE
--- NOTE | 2022-10-05 13:05 | NUR ---
PT NIBBLES ONLY ON NOON MEAL PUSHES IT AWAY. OFFERED ENSURE, FRUIT, AND SEVERAL OTHER ITEMS. PT REFUSES STATES SHE'S NOT HUNGRY. REFUSES OFFERS TO TOILET. HAD PT STAND FOR A TIME AT CHAIR THEN RETURN TO SITTING, PILLOWS MOVED AND POSITION CHANGED A BIT. SITTING UP NOW DENIES NEEDS OF
--- NOTE | 2022-10-05 14:11 | NUR ---
SPOKE WITH PATIENTS DAUGHTER ROSALVA, CONFIRMED TRANSPORTATION FOR 10/06/22 AT 1115. ROSALVA STATES HER AND HER SISTER WILL BE HERE IN THE MORNING TO VISIT PATIENT PRIOR TO DISCHARGE.
--- NOTE | 2022-10-05 16:31 | NUR ---
PT CALLS FOR TOILETING SBA TO BSC THEN BACK TO THE CHAIR.
--- NOTE | 2022-10-05 17:38 | NUR ---
PT UP IN THE CHAIR EATS ONLY BITES OF EVENING MEAL. OTHER OPTIONS OFFERED SHE REFUSES.
--- NOTE | 2022-10-05 19:29 | NUR ---
REPORT RECEIVED FROM DAY SHIFT RN. PT SITTING IN RECLINER WITH EYES CLOSED. RESPIRATIONS EVEN. CALL LIGHT IN REACH.
--- NOTE | 2022-10-05 20:43 | NUR ---
PT SITTING IN RECLINER. 2PA WITH RADHA PANTOJA TO BED. PT ABLE TO ASSIST SOMEWHAT. DENIES BSC. EVENING ASSESSMENT COMPLETE. SCHEDULED MEDS ADMIN PER EMAR. PT REPORTS PAIN TOLERABLE AT THIS TIME. WARM COMPRESS GIVEN FOR BACK OF HER NECK. ASSISTED TO REPOSITION WITH PILLOWS. NO FURTHER NEEDS. CALL LIGHT IN REACH.
--- NOTE | 2022-10-05 22:50 | NUR ---
CALL LIGHT ANSWERED. PT REPORTS HEADACHE PAIN 05/02. PRN FOR PAIN ADMIN PER EMAR. 2PA HEAVY ASSIST WITH RADHA STEDY TO BSC TO VOID. STAFF ASSIST WITH SUSAN CARE. BACK TO BED, MARIA INES FAIR. 2PA TO REPOSITION IN BED. NO FURTHER NEEDS. CALL LIGHT IN REACH.
--- NOTE | 2022-10-06 02:56 | NUR ---
PT RESTING IN BED WITH EYES CLOSED. RESPIRATIONS EVEN. CALL LIGHT IN REACH.
--- NOTE | 2022-10-06 05:43 | NUR ---
VS AND I&O COMPLETE. PT UP TO BSC WITH FWW AND 2PA TO VOID. STAFF ASSIST WITH SUSAN CARE. TO RECLINER. PT REPORTS HEADACHE PAIN 04/01. PRN FOR PAIN ADMIN PER EMAR. NO FURTHER NEEDS. CALL LIGHT IN REACH.
--- NOTE | 2022-10-06 07:21 | NUR ---
PT UP IN THE CHAIR AT TIME OF SHIFT REPORT. SHE AGREES HER HEADACHE IS IMPROVED OVER YESTERDAY. CALL LIGHT IN REACH DENIES NEEDS OF
--- NOTE | 2022-10-06 09:00 | NUR ---
FAxed orders x 4 to [facility], starting at 0730 this am. They could not recieve. Faxed to alternate number [phone] and they received. Updated [employer] van will pickle solution maker at 11:15 today. Spoke with Asiya and family will bring pts clothing and overnight bag. Pt denies other needs.
--- NOTE | 2022-10-06 11:00 | NUR ---
PT ASSISTED TO DRESS FOR TRANSPORT, FAMILY X2 ARE PRESENT. MEDS PROVIDED FOR TRANSPORT FLONASE AND TOPICAL CREAM BEING USED. PT AGREES SHE IS COMFORTABLE DENIES NEEDS AT THIS TIME
--- NOTE | 2022-10-06 11:10 | NUR ---
Notified by staff they took Asiya to the front of the hospital and the van drove off at 1110. I then received a call from Stephen at the [facility] asking I call [facility] as there has been a mix up. Let him know I will contact [facility] first and check what is the latest the pt can arrive. Texted and called [facility] and I was not able to contact. Called [facility] and pt was scheduled to transport in town, not to [place]. Their drivers are full. He states he is on his way to [place] with a pt, he will transport Asiya when he returns in 3 hours. Called the front and asked them to return Asiya to her room. Attempted to call Felicia at [facility] and finally called and was put to the RN. UPdated the [facility] did not schedule this pt for and out of town transport. They are trying to find a different furniture mover driver, if they can't, they will transport at 2:30. To pts room and spoke with Asiya. Family members are present and I asked if they can transport. They state pt did not want them as she was concerned she couldn't get into the car. Assured her we have staff to place her into the car. She states concern she has a lot of knee pain. Rn is present and states they can medicate her now. I will contact [facility] to confirm they have staff to help her from the car. Pt agree, but is not happy. I appologized several times for this inconvenience. I called and spoke with TALIA Zamorano, at [facility] she gave me [facility] number for family to call when they arrive. They will assist pt into the SNF. Pt and family agree and discharge.
== END 2022-10-06 11:15 | DRG 871 ==
LOC: ED 08:52 → MS 12:44
PROVIDERS: ADMIT Family Medicine; ATTEND Internal Medicine
DX: A40.3 Sepsis due to Streptococcus pneumoniae (principal); J13 Pneumonia due to Streptococcus pneumoniae; Z66 Do not resuscitate; Z20.822 Contact with and (suspected) exposure to COVID-19; E87.6 Hypokalemia; R51.9 Headache, unspecified; J01.40 Acute pansinusitis, unspecified; E83.42 Hypomagnesemia; Z87.891 Personal history of nicotine dependence; Z90.49 Acquired absence of other specified parts of digestive tract; Z79.899 Other long term (current) drug therapy
CPT/HCPCS: 36415; 70450; 71045; 71046; 73560; 80048; 80053; 81001; 83605; 83735; 84100; 85025; 87040; 87070; 87088; 87186; 87205; 87502; 93005; 93010; 97110; 97162; 97165; 97530; A9270; C9803; J0696; J1170; J1650; J1956; J2405; J3475; J3480; J7030; J7060; J7121; U0003